=== PATIENT | male | born 1960 | race Caucasian/White ===

== ENCOUNTER 2019-05-22 20:05 | Emergency (ER) | payer MEDICARE, SELFPAY ==
[2019-05-22 20:18] VITALS: PULSE 75; RESP 14; TEMP 36.8; O2SAT 98; BMI 38.5
--- NOTE | 2019-05-22 20:32 | XR_ITS ---
WS: [id number] SHOULDER LEFT TECHNIQUE: 3 views of the left shoulder CLINICAL INFORMATION: pain COMPARISON: None. FINDINGS: Moderate degenerative arthritis AC joint. AICD. Rotator cuff arthropathy with subacromial narrowing. No visualized acute fractures. Slight irregularity air tuberosity likely degenerative. XR/XR shoulder LT min 2V* [id number] IMPRESSION: 1. Moderate degenerative arthritis left shoulder with rotator cuff arthropathy
--- NOTE | 2019-05-22 20:55 | PC.NURSE ---
Patient reports that he fell a year ago and had a lot of pain. Patient states that it went away and they thought he had a bone spur. Patient reports since he has been in a lot of pain since Wednesday. Patient reports that his left hand is swelling as well.
--- NOTE | 2019-05-22 21:20 | W.ED.EXTPRO ---
HPI - Extremity Problem General: Chief complaint: Extremity Injury, Upper Stated complaint: left shoulder pain Time Seen by Provider: 05/22/19 20:47 History of Present Illness: HPI Narrative: Patient is a 59-year-old male who comes to the ED with left shoulder pain. He states that on , May 18 he was lifting some materials to wait around 50 pounds. He says during the lifting movements felt some pain and a pop in his left shoulder. After that he is says he's had pain since. He has problems sleeping at night due to pain. He rates his pain currently and 10. Denies any chest pain, shortness of breath, nausea, vomiting, abdominal pain, hematuria, dysuria, fevers, constipation, diarrhea, stool. Denies any numbness or tingling or weakness to extremities. Review of Systems General: Reports: 10 or more systems reviewed and unremarkable except in HPI and below PFSH ED PFSH: Statuses (acute, chronic, etc) shown below reflect problem list status as previously entered and may not be historically accurate Social History Smoking and tobacco status: former smoker Physical Exam Const: COMMON NORMALS: oriented x3 HENMT: COMMON NORMALS: normocephalic HEAD & SCALP: normocephalic MOUTH: oral and palatal mucosa normal THROAT: posterior oropharynx normal and uvula midline Neck/C-Spine: COMMON NORMALS: supple GENERAL: Yes normal visual inspection Resp: COMMON NORMALS: normal respiratory effort, no retractions, no use of accessory muscles and clear to auscultation bilaterally AUSCULTATION: clear to auscultation bilaterally Cardio: COMMON NORMALS: regular rate, regular rhythm, S1 normal heart sound, S2 normal heart sound, no gallops, no clicks, no murmurs and peripheral pulses 2+ throughout RATE: regular rate RHYTHM: regular rhythm HEART SOUNDS: S1 normal and S2 normal PERIPHERAL PULSES: pulses 2+ throughout GI: COMMON NORMALS: normal to inspection, nondistended, normoactive bowel sounds, soft to palpation, non-tender and no masses PALPATION: Yes soft : COMMON NORMALS: Yes no CVA tenderness BLADDER/KIDNEY EXAM: Yes no CVA tenderness Back/Pelvis: COMMON NORMALS: no CVA tenderness Extremity: LEFT UPPER EXTREMITY: Yes shoulder joint Left shoulder joint: Yes inspection (normal and no swelling), Yes palpation (tenderness at posterior side of ac joint.), Yes ROM (limited due to pain.) and Yes neurovascular exam (intact) Neuro: COMMON NORMALS: oriented x3 and moves all extremities Course Vital Signs: Vital signs: Vital Signs Temperature 98.3 F 05/22/19 22:56 Pulse Rate 76 05/22/19 22:56 Respiratory Rate 16 05/22/19 22:56 Blood Pressure 128/62 05/22/19 22:56 Pulse Oximetry 97 05/22/19 22:56 MDM - Extremity (Nontraumatic) Imaging Data^: Xray Ortho: Attestation: I personally reviewed and interpreted this imaging study as follows: My impression: Left shoulder x-ray?no acute findings or fractures. Pending final radiologist's report. Discharge Plan Discharge Patient Disposition: Home, Self-Care Clinical Impression: Shoulder pain, acute Qualifiers: Laterality: left Qualified Code(s): M25.512 - Pain in left shoulder Condition: Stable Prescriptions: New Zanaflex 2 mg capsule 2 mg PO TID PRN (Reason: muscle spasticity) Qty: 20 RF: 0 No Action Unable to Assess RF: 0 Discharge Orders: Discharge Order (Routine); Ordered 05/22/19 Ordered By: Henri Koroma Referrals: Huy Boles MD [Family Provider] - Discharge Diet: Regular Discharge Activity: Increase activity as tolerated Patient Instructions: Shoulder Sprain (ED) Activity Restrictions/Additional Instructions: Follow-up with primary care doctor on Wednesday and regularly scheduled appointment. Take muscle relaxer at night to help with pain and discomfort while sleeping. Ice shoulder and take Tylenol for pain. Wear sling as needed throughout the day to help with pain. Make sure to not to immobilize shoulder for to long in sling so throughout the day make sure your removing the sling and moving shoulder. Discharge Date/Time: 05/22/19 22:57 Coding Level of Care Code ED Engineering Equipment Operator for Zenaida Gruber
[2019-05-22] MEDS: HYDROcodone-acetaminophen 7.5-325 mg Tablet 1 TAB PO (22:24)
[2019-05-22 22:25] VITALS: BP 128/74; PULSE 73; RESP 16; O2SAT 98
[2019-05-22] MEDS: orphenadrine 30 mg/mL Inj 2 mL 60 MG IM (22:48)
[2019-05-22 22:56] VITALS: BP 128/62; PULSE 76; RESP 16; TEMP 36.8; O2SAT 97
== END 2019-05-22 22:57 | disposition home or self-care (01) ==
PROVIDERS: Emergency Provider Physician Assistant; Family Provider Family Medicine
DX: M25.512 Pain in left shoulder (principal); Z87.891 Personal history of nicotine dependence
CPT/HCPCS: 73030; 96372; 99281; 99283; J2360

== ENCOUNTER 2019-06-07 12:32 | Outpatient (RCR) | payer MEDICARE, SELFPAY | END 2019-06-17 23:59 | disposition home or self-care (01) | LOC: SPT 12:32 | PROVIDERS: Family Provider Family Medicine; PCP Family Medicine; Referring Provider Nurse Practitioner Family; Visit Provider Nurse Practitioner Family | DX: M25.512 Pain in left shoulder (principal) | CPT/HCPCS: 97110; 97161; 97530 ==

== ENCOUNTER 2019-06-18 06:00 | Outpatient (RCR) | payer MEDICARE, SELFPAY | END 2019-07-18 23:59 | disposition home or self-care (01) | LOC: SPT 06:00 | PROVIDERS: Family Provider Family Medicine; PCP Family Medicine; Referring Provider Nurse Practitioner Family; Visit Provider Nurse Practitioner Family | DX: M25.512 Pain in left shoulder (principal) | CPT/HCPCS: 97110; 97140 ==

== ENCOUNTER 2020-01-12 12:57 | Outpatient (CLI) | payer MEDICARE, SELFPAY ==
--- NOTE | 2020-01-12 13:05 | XR_ITS ---
WS: [id number] PELVIS AND LEFT HIP HISTORY: ILIOPSOAS BURSITIS OF LEFT HIP COMPARISON: None available. LEFT hip: No acute fracture or dislocation. No soft tissue or destructive bone lesion. Minimal osteop hytic ridging around the acetabulum. Bilateral enthesopathy from the iliac crest. Very mild narrowing of the SI joints and hip joints. XR/XR hip LT 2-3V wo/w pel* [id number] IMPRESSION: 1. Mild bilateral hip joint arthritis. 2. Iliac crest enthesopathy.
== END 2020-01-12 12:58 | disposition home or self-care (01) ==
PROVIDERS: Family Provider Family Medicine; PCP Family Medicine; Visit Provider Family Medicine
DX: M70.72 Other bursitis of hip, left hip (principal); I10 Essential (primary) hypertension; M16.0 Bilateral primary osteoarthritis of hip; M76.22 Iliac crest spur, left hip
CPT/HCPCS: 73502

== ENCOUNTER 2020-11-12 13:47 | Outpatient (CLI) | payer MEDICARE, SELFPAY ==
--- NOTE | 2020-11-12 14:11 | XR_ITS ---
WS: [id number] XR chest 2V* [id number] REASON FOR EXAM: COUGH FINDINGS: Battery pack over the left chest with trans left subclavian leads to the right atrium and right vent ricular apex. Thoracic aorta is mildly tortuous with no aneurysmal dilatation. The heart is not enlarged. No active pulmonary parenchymal or pleural abnormality is noted. Postoperative right shoulder, degenerative spondylosis in the mid and lower thoracic spine, otherwise the bony thorax is intact. The chest appears relatively unchanged compared to 03/10/2019. XR/XR chest 2V* [id number] IMPRESSION: No acute chest abnormality.
== END 2020-11-12 13:48 | disposition home or self-care (01) ==
PROVIDERS: PCP Family Medicine; Visit Provider Family Medicine
DX: R05 Cough (principal)
CPT/HCPCS: 71046

== ENCOUNTER 2021-01-10 15:00 | Outpatient (CLI) | payer MEDICARE, SELFPAY ==
--- NOTE | 2021-01-10 15:09 | XR_ITS ---
WS: [id number] Lumbar spine, 5 views including obliques, 01/10/2021 Clinical Data: LUMBAR PAIN Comparison: Lumbar spine, 06/28/2017. Findings: No compression fractures or subluxation is seen. No disc space narrowing is seen. The transverse proc esses and SI joints are normal. Osteoarthritis of all the lumbar vertebral bodies is noted. No spondy lolysis or spondylolisthesis is present. There is a minimal levoscoliosis. XR/XR lumbar spine min 4V [id number] Impression: No change in osteoarthritis and minimal levoscoliosis.
== END 2021-01-10 15:01 | disposition home or self-care (01) ==
PROVIDERS: PCP Family Medicine; Visit Provider Family Medicine
DX: M54.5 Low back pain (principal)
CPT/HCPCS: 72110

== ENCOUNTER → 2021-03-26 13:03 | Outpatient (BNVA) | payer MEDICARE, SELFPAY | PROVIDERS: PCP Family Medicine; Visit Provider Family Medicine | DX: Z01.812 Encounter for preprocedural laboratory examination (principal); Z20.822 Contact with and (suspected) exposure to COVID-19 | CPT/HCPCS: 87635 ==

== ENCOUNTER 2021-04-01 10:47 | Outpatient (CLI) | payer MEDICARE, SELFPAY ==
--- NOTE | 2021-04-01 12:51 | PFTS_ITS ---
Date of Study:04/01/21 Date of Dictation: 04/04/21 MECHANICS: Postbronchodilator forced vital capacity (FVC) is reduced . Postbronchodilator forced expiratory volume in one second (FEV1) is reduced . FEV1/FVC is normal. There is no significant response to bronchodilators. FLOW VOLUME LOOP: normal LUNG VOLUMES:not measured DIFFUSING CAPACITY FOR CARBON MONOXIDE: not measured . INTERPRETATION: The spirometry suggestive of restrictive pattern. Lung volumes and gas transfer not measured. Clinical correlation recommended. MTDD
== END 2021-04-01 10:48 | disposition home or self-care (01) ==
LOC: RT 10:51
PROVIDERS: PCP Family Medicine; Visit Provider Family Medicine
DX: R06.02 Shortness of breath (principal)
CPT/HCPCS: 94060; J7611

== ENCOUNTER → 2021-06-14 14:48 | Outpatient (BNVA) | payer MEDICARE, SELFPAY | PROVIDERS: PCP Family Medicine; Visit Provider Nurse Practitioner | DX: Z20.822 Contact with and (suspected) exposure to COVID-19 (principal) | CPT/HCPCS: 87635 ==

== ENCOUNTER 2021-06-26 14:51 | Outpatient (CLI) | payer MEDICARE, SELFPAY ==
--- NOTE | 2021-06-26 14:59 | XR_ITS ---
WS: [id number] Chest 2 views, 06/26/2021 Clinical Data: RESPIRATORY DISORDER Comparison: PA and lateral chest, 11/12/2020. Findings: No nodules, masses or effusions are seen. The heart is normal. The pulmonary vascularity is not increased. No pneumonia or pneumothorax is seen. There is a permanent pacemaker with the generat or overlying the left upper lateral chest. There is an orthopedic screw in the right scapula in the a xillary border. XR/XR chest 2V* [id number] Impression: Cardiac pacemaker.
== END 2021-06-26 14:52 | disposition home or self-care (01) ==
PROVIDERS: PCP Family Medicine; Visit Provider Nurse Practitioner Family
DX: J98.9 Respiratory disorder, unspecified (principal); Z95.0 Presence of cardiac pacemaker
CPT/HCPCS: 71046

== ENCOUNTER 2021-07-06 12:12 | Emergency (ER) | payer MEDICARE, SELFPAY ==
[2021-07-06 12:22] VITALS: BP 131/110; PULSE 68; RESP 18; TEMP 36.4; O2SAT 99; BMI 34.8
--- NOTE | 2021-07-06 12:32 | CTR_ITS ---
PROCEDURE INFORMATION: Exam: CT Cervical Spine Without Contrast Exam date and time: 07/06/2021 12:50 PM Age: 61 years old Clinical indication: Injury or trauma; Fall; Blunt trauma; Additional info: Fall with neck pain TECHNIQUE: Imaging protocol: Computed tomography images of the cervical spine without contrast. Axial, coronal and sagittal reformatted images were created and reviewed. Radiation optimization: All CT scans at this facility use at least one of these dose optimization techniques: automated exposure control; mA and/or kV adjustment per patient size (includes targeted exams where dose is matched to clinical indication); or iterative reconstruction. COMPARISON: CT head wo con* [id number] 07/06/2021 12:47 PM RADIATION DOSE METRICS: Total DLP (mGy-cm): 1012.54 FINDINGS: Bones/joints: Osteopenia. Straightening of the normal cervical lordosis. No CT evidence of acute fracture, dislocation or subluxation. Alignment anatomic. Mild dextroscoliosis. Vertebral body heights maintained. Discs/Spinal canal/Neural foramina: Multilevel degenerative changes, characterized by disc space narrowing, osteophytosis and uncovertebral and facet joint hypertrophy. Multilevel spinal canal and neural foraminal stenosis. Lungs: Mild biapical paraseptal emphysematous change and pleural thickening. Soft tissues: Grossly unremarkable. CT/CT cervical spin wo con* [id number] IMPRESSION: 1. No CT evidence of acute cervical spine traumatic injury. 2. Additional findings, as above.
--- NOTE | 2021-07-06 12:32 | ECG_ITS ---
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 Measurements Intervals [place] Rate: 68 P: 60 AZ: 179 QRS: -45 QRSD: 141 T: 2 QT: 454 QTc: 484 Interpretive Statements ELECTRONIC VENTRICULAR PACEMAKER MARKED ST ELEVATION, CONSIDER LATERAL INJURY [MARKED ST ELEVATION W/O NORMALLY INFLECTED T-WAVE IN I/aVL/V5/V6] MARKED ST DEPRESSION, CONSIDER SUBENDOCARDIAL INJURY [0.2+ mV ST DEPRESSION] ACUTE CO INTERPRETATION BASED ON A DEFAULT AGE OF 40 YEARS Compared to ECG 03/10/2019 13:40:57 ST (T wave) deviation now present Myocardial infarct finding now present Electronically Signed On 07-06-2021 17:47:03 CDT by Ta Issa M.D. [id number]
--- NOTE | 2021-07-06 12:32 | CTR_ITS ---
PROCEDURE INFORMATION: Exam: CT Head Without Contrast Exam date and time: 07/06/2021 12:47 PM Age: 61 years old Clinical indication: Injury or trauma; Fall; Blunt trauma (contusions or hematomas); With loss of consciousness; Additional info: Head trauma TECHNIQUE: Imaging protocol: Computed tomography of the head without contrast. Axial, coronal and sagittal reformatted images were created and reviewed. Radiation optimization: All CT scans at this facility use at least one of these dose optimization techniques: automated exposure control; mA and/or kV adjustment per patient size (includes targeted exams where dose is matched to clinical indication); or iterative reconstruction. COMPARISON: No relevant prior studies available. RADIATION DOSE METRICS: Total DLP (mGy-cm): 1019.55 FINDINGS: Brain: Subtle, patchy areas of hypoattenuation in the periventricular and subcortical white matter, nonspecific but suggestive of mild chronic small vessel ischemic disease. No CT evidence of acute intracranial hemorrhage or acute territorial infarction. No significant mass effect or midline shift. Basal cisterns patent. Cerebral ventricles: Prominence of the cortical sulci, cisterns and ventricular system, consistent with cerebral and cerebellar volume loss. Paranasal sinuses: Mild ethmoid mucosal thickening. No fluid levels. Mastoid air cells: Minimal opacification of the right greater than left mastoid air cells. Vasculature: Calcific atherosclerotic disease in the cavernous internal carotid arteries. Bones/joints: No acute osseous abnormality. Soft tissues: Grossly unremarkable. CT/CT head wo con* [id number]: 1[address] No CT evidence of acute intracranial pathology. 2. Additional findings, as above.
--- NOTE | 2021-07-06 12:33 | W.ED.FALL ---
HPI - Fall General: Chief Complaint: Fall Stated Complaint: fall hit head Time Seen by Provider: 07/06/21 12:22 Source: patient and family Mode of arrival: ambulatory Limitations: no limitations History of Present Illness: This patient presents to the emergency department the insistence of his spouse. He states he has been having occipital headache and kind of feeling foggy and out of sorts since Wednesday. He apparently has had recent pneumonia and had a coughing paroxysm and on Wednesday and was kind of stretching out and bending upwards during this episode of coughing and had a syncopal episode causing him to fall back and striking his head and neck against a coffee table. He states that he had no prodrome to this episode other than his coughing paroxysm. He states he has had previous episodes of cough syncope in the past. He states that since his fall on Wednesday he has had an occipital headache and having episodes where he just feels out of sorts and not his usual mental state. He denies any weakness or numbness, difficulty with speech, difficulty with other neurologic symptoms. He takes 81 mg of aspirin but no other blood thinners. He states he is been doing some of his usual work but some days has not felt he has the energy or the drive to do his usual activities of daily living. He states he has been eating and drinking okay with no vomiting or diarrhea. States his pneumonia is significantly improved over the past several days. He has been on antibiotics for that condition. Denies any fevers or chills or other constitutional complaints at this time. 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 He states his defibrillator pacemaker has never defibrillated him. MD complaint: fall Fall from: standing Place fall occurred: home Location of injury: head, neck and buttocks Associated symptoms-after fall: Reports headache(s) and neck pain; Denies abdominal pain, chest pain, difficulty walking, lightheadedness or vertigo Review of Systems Const: Denies: fever(s), chills or body aches Eyes: Denies: change in vision or blurry vision ENMT: Denies: throat pain, change in hearing, disequilibrium or sinus pain Card: Reports: syncope; Denies: chest pain, palpitations, irregular heart rhythm, lightheadedness, pre-syncope or dyspnea on exertion Resp: Reports: non-productive cough; Denies: wheezing or stridor GI: Denies: abdominal pain, nausea or vomiting : Denies: flank pain, difficulty urinating or dysuria Musc: Reports: neck pain and back pain; Denies: extremity pain, extremity swelling, joint pain or joint swelling Skin/Breast: Denies: rash Neuro: Reports: headache(s); Denies: numbness in extremities, weakness in extremities, sensory changes, lack of coordination, difficulty walking, dizziness, vertigo, behavioral changes, Slurred speech present or seizure-like activity Endo: Denies: polyuria or polydipsia Moshe/Lymph: Denies: easy bruising or easy bleeding PFSH ED PFSH: Social History Smoking and tobacco status: former smoker Physical Exam Narrative: EXAM NARRATIVE: Patient appears comfortable. He answers questions in a goal-directed fashion. Const: COMMON NORMALS: no acute distress and patient oriented x3 NUTRITIONAL APPEARANCE: overweight HENMT: COMMON NORMALS: normocephalic (No laceration. Mild tenderness over the inferior occiput.), external ears normal, Normal nasal mucous membranes and turbinates present, moist oral mucous membranes and oropharynx normal HEAD & SCALP: normocephalic (No laceration. Mild tenderness over the inferior occiput.); no abrasion, no Walker's sign, no laceration and no palpable skull fracture FACE & SINUS: normal facial exam NOSE: Normal nasal mucous membranes and turbinates present EXTERNAL EAR: Yes external ears normal Eye: COMMON NORMALS: Equal, round and reactive pupils present PUPIL: Yes Equal, round and reactive pupils present Neck/C-Spine: COMMON NORMALS: supple, no JVD and No carotid bruits OTHER: Mild tenderness in the paravertebral region of the C-spine. No step-offs. Chest: COMMONS NORMALS: normal inspection of the chest and normal palpation of entire chest wall Resp: COMMON NORMALS: normal respiratory effort, No retractions, No use of accessory muscles and clear to auscultation bilaterally AUSCULTATION: clear to auscultation bilaterally Cardio: COMMON NORMALS: no JVD, regular rate, No murmurs present (Cardio) and Peripheral pulses 2+ throughout RATE: regular rate PERIPHERAL PULSES: Peripheral pulses 2+ throughout GI: COMMON NORMALS: Normal to inspection, nondistended, normoactive bowel sounds present and Soft to palpation PALPATION: Yes Soft to palpation : COMMON NORMALS: Yes no CVA tenderness BLADDER/KIDNEY EXAM: Yes no CVA tenderness Back/Pelvis: COMMON NORMALS: no CVA tenderness, thoracic and lumbar spine normal to inspection, thoraco-lumbar ROM normal and straight leg raise negative bilaterally LUMBAR SPINE/LOWER BACK: Yes other soft tissue findings (No ecchymosis. Mild soft tissue tenderness in the paralumbar region.) Extremity: COMMON NORMALS: normal to inspection, full ROM, capillary refill normal, no calf tenderness and no pedal edema Neuro: COMMON NORMALS: patient oriented x3, moves all extremities, no focal motor deficits, no sensory deficits noted and gait normal CRANIAL NERVES: Yes CN normal except as noted SPEECH: speech normal Course Reevaluation(s): Reevaluation #1: I went back to discussed current findings with the patient also reevaluate him. I informed him of his CT of his head and neck were reassuring and discussed about concussion and expected course. He then related to me that since he has been sitting in a somewhat semirecumbent position on the examination bed he is noted increasing discomfort in his right lower back. He states it causes some numbness around his soft tissues in that area. He was previously examined and had some minimal soft tissue tenderness but he states that he has not been used to being in this position it seems to be more uncomfortable. He has the same amount of soft tissue tenderness over the region and the location of the posterior superior iliac spine. He also has some discomfort with straight leg raising on the right. There is no left-sided tenderness and a negative straight leg raising on the left. He has no midline tenderness or step-off. Given his current findings we will go ahead and get some plain films of his pelvis and lumbar spine to ensure there is no occult fracture. Time: 13:29 Vital Signs: Vital signs: Vital Signs Temperature 97.6 F 07/06/21 12:22 Pulse Rate 62 07/06/21 13:06 Respiratory Rate 16 07/06/21 12:37 Blood Pressure 131/110 07/06/21 13:06 Pulse Oximetry 96 07/06/21 13:06 MDM - Fall Medical Decision Making Patient presents to our emergency department with symptoms suggestive of a cough syncope with a subsequent fall. Imaging of his head and neck were reassuring as well as imaging of his pelvis and lumbar spine region. Appears to have post concussive symptoms as well as soft tissue contusion from his fall without any evidence of other serious injury. He has monitor and resting EKG both were consistent with a paced rhythm without any evidence of arrhythmias. He is stable at this time to be discharged. The expected course of recovery from concussion was reviewed with both he and his accompanying spouse. He was cautioned on operating heavy machinery, working at heights etc. until he feels 100% back to normal. We also discussed return precautions in detail. All discussion was acknowledged. Stable for discharge. Medical Records I reviewed the patient's medical records. Lab Data I reviewed the patient's lab results. Radiology Impressions Cervical Spine CT 07/06/21 12:[address]: [address] evidence of acute cervical spine traumatic injury. 2. Additional findings, as above. Head CT 07/06/21 12:32 IMPRESSION: 1. No CT evidence of acute intracranial pathology. 2. Additional findings, as above. Lumbar Spine X-Ray 07/06/21 13:27 IMPRESSION: No acute radiographic findings. Pelvis X-Ray 07/06/21 13:27 IMPRESSION: No acute radiographic findings. EKG Data EKG 1: I personally reviewed and interpreted this EKG as follows: EKG interpretation time: 12:30 Interpretation: Patient has a paced rhythm of 68 bpm. He has bundle branch block pattern as one would expect from a paced rhythm. Computer expresses a possible acute NJ pattern however there is no discordance or concordance across the precordial leads consistent with scarbossa's criteria for acute NJ. Discharge Plan Discharge Patient Disposition: Home Clinical Impression: Cough syncope, Concussion, Soft tissue injury of back Condition: Stable Prescriptions: No Action Unable to Assess 0RF Zanaflex 2 mg capsule 2 mg PO TID PRN (Reason: muscle spasticity) Qty: 20 0RF Discharge Orders: Discharge ED (Routine); Ordered 07/06/21 Ordered By: Amari Wagner Referrals: Huy Boles MD [Primary Care Provider] - Discharge Diet: Usual diet Discharge Activity: Limit activity as instructed Patient Instructions: Concussion/Head Injury - Adult, Opioid Safety Activity Restrictions/Additional Instructions: As we discussed postconcussive symptom symptoms may wax and wane and persist for an indeterminate period of time but many times of upwards of 2 weeks or more after the injury. Avoid operating heavy machinery, working at heights etc. until you feel back to 100% of your normal self. You may use ice to your low back to help with any discomfort. Should you develop persistent worsening pain loss of bowel or bladder control or weakness numbness that persists return to the emergency department for reevaluation. Coding Level of Care Code ED Professor Of Sport Management for Zenaida Fwd Exam Comprehensive
[2021-07-06 12:37] VITALS: BP 131/110; PULSE 68; RESP 16; O2SAT 96
[2021-07-06 13:06] VITALS: BP 131/110; PULSE 62; O2SAT 96
--- NOTE | 2021-07-06 13:27 | XRR_ITS ---
PROCEDURE INFORMATION: Exam: XR Pelvis Exam date and time: 07/06/2021 1:34 PM Age: 61 years old Clinical indication: Pelvic pain; Additional info: Now with pain in right si region-fall injury TECHNIQUE: Imaging protocol: XR pelvis. Views: 1 or 2 view. COMPARISON: CR XR hip LT 2-3V wo/w pel* [id number] 01/12/2020 1:17 PM FINDINGS: Bones/joints: No radiographic evidence of acute fracture or dislocation. Alignment anatomic. Mild bilateral hip joint osteoarthrosis. Degenerative changes of the lower lumbar spine, sacroiliac joints and pubic symphysis. Soft tissues: Grossly unremarkable. XR/XR pelvis 1-2V* [id number] IMPRESSION: No acute radiographic findings.
--- NOTE | 2021-07-06 13:27 | XRR_ITS ---
PROCEDURE INFORMATION: Exam: XR Lumbosacral Spine Exam date and time: 07/06/2021 1:34 PM Age: 61 years old Clinical indication: Low back pain; Additional info: Fall but now C/O increased pain in right si joint area TECHNIQUE: Imaging protocol: XR of the lumbosacral spine. Views: 2 or 3 views. COMPARISON: CR XR lumbar spine min 4V [id number] 01/10/2021 3:20 PM FINDINGS: Bones/joints: Moderate multilevel spondylosis. No acute fracture. Normal alignment. Soft tissues: Grossly unremarkable. XR/XR lumbar spine 2-3V* [id number] IMPRESSION: No acute radiographic findings.
[2021-07-06 14:38] VITALS: BP 148/82; PULSE 66; RESP 16; O2SAT 98
== END 2021-07-06 14:39 | disposition home or self-care (01) ==
PROVIDERS: Emergency Provider Emergency Medicine; PCP Family Medicine
DX: S06.0X9A Concussion with loss of consciousness of unspecified duration, initial encounter (principal); R55 Syncope and collapse; R05.9 Cough, unspecified; S30.0XXA Contusion of lower back and pelvis, initial encounter; Z87.891 Personal history of nicotine dependence; W19.XXXA Unspecified fall, initial encounter
CPT/HCPCS: 70450; 72100; 72125; 72170; 93005; 99283

== ENCOUNTER 2021-08-19 08:39 | Outpatient (CLI) | payer MEDICARE, SELFPAY ==
--- NOTE | 2021-08-19 08:53 | CT_ITS ---
WS: [id number] CT CHEST TECHNIQUE: Contrast enhanced CT of the chest with coronal and sagittal reformatted images. CLINICAL INFORMATION: WHEEZING COMPARISON: CT chest 08/23/17 DLP: 827.[address] scans at [facility] use at least one of these dose optimization techniques: automated e xposure control; mA and/or kV adjustment per patient size (includes targeted exams where dose is matc hed to clinical indication); or iterative reconstruction. FINDINGS: Mild chronic emphysematous changes. Slight bibasilar atelectasis. Slight hazy groundglass infiltrates in the RIGHT lower lobe posteriorly. No focal pneumonia or pleural fluid. Numerous noncalcified pulmonary nodules within both lungs the largest measuring 7 mm. Largest nodules are stable since 2018. A few new and increasing nodules although subcentimeter in size. Recommend 6- 12 month follow-up. Normal thyroid gland. Normal caliber thoracic aorta. Aortic calcification. Proximal main pulmonary ar teries are normal. No mediastinal or hilar lymphadenopathy. No axillary lymphadenopathy. Adrenal glands are normal. Mild diffuse fatty infiltration the liver. Normal GE junction. Hypertrophic changes thoracic spine. Thora cic curve convex RIGHT. CT/CT chest w con* [id number] IMPRESSION: 1. Numerous noncalcified bilateral pulmonary nodules largest measuring 7 mm. M ost of these are stable since 2018. A few are new or increased in size. Recomme nd 6-12 month follow-up. 2. Bibasilar atelectasis with slight hazy groundglass infiltrates in the RIGHT lower lobe posteriorly. This is likely infectious or inflammatory. Recommend c orrelation for pneumonitis. 3. No focal pneumonia or pleural fluid. 4. No mediastinal or hilar lymphadenopathy. 5. No other significant changes compared to previous
[2021-08-19] MEDS: iohexol 350 mg/mL 100 mL Btl IV (09:21)
== END 2021-08-19 08:40 | disposition home or self-care (01) ==
LOC: RAD 08:43
PROVIDERS: PCP Family Medicine; Visit Provider Family Medicine
DX: R06.2 Wheezing (principal); R91.8 Other nonspecific abnormal finding of lung field; J98.11 Atelectasis
CPT/HCPCS: 71260

== ENCOUNTER → 2021-11-03 14:31 | Outpatient (BNVA) | payer MEDICARE, SELFPAY | PROVIDERS: PCP Family Medicine; Visit Provider Internal Medicine Critical Care Medicine | DX: J42 Unspecified chronic bronchitis (principal); F17.200 Nicotine dependence, unspecified, uncomplicated; T17.908A Unspecified foreign body in respiratory tract, part unspecified causing other injury, initial encounter; R91.1 Solitary pulmonary nodule; Y99.9 Unspecified external cause status | CPT/HCPCS: 99204 ==

== ENCOUNTER → 2021-11-11 10:56 | Outpatient (BNVA) | payer MEDICARE, SELFPAY | PROVIDERS: PCP Family Medicine; Visit Provider Family Medicine | DX: I50.9 Heart failure, unspecified (principal); C95.90 Leukemia, unspecified not having achieved remission; G47.33 Obstructive sleep apnea (adult) (pediatric); E78.5 Hyperlipidemia, unspecified; F17.219 Nicotine dependence, cigarettes, with unspecified nicotine-induced disorders; Z76.89 Persons encountering health services in other specified circumstances; R91.1 Solitary pulmonary nodule; T17.908A Unspecified foreign body in respiratory tract, part unspecified causing other injury, initial encounter; J42 Unspecified chronic bronchitis; I11.0 Hypertensive heart disease with heart failure | CPT/HCPCS: 80053; 80061; 83036; 83735; 84153; 84439; 84443; 85025 ==

== ENCOUNTER → 2022-02-18 08:32 | Outpatient (BNVA) | payer MEDICARE, SELFPAY | PROVIDERS: PCP Family Medicine; Visit Provider Podiatrist Foot & Ankle Surgery | DX: I73.9 Peripheral vascular disease, unspecified (principal); L60.0 Ingrowing nail; E11.9 Type 2 diabetes mellitus without complications; R60.9 Edema, unspecified | CPT/HCPCS: 11721; 99204 ==

== ENCOUNTER 2022-02-26 16:54 | Outpatient (CLI) | payer MEDICARE, SELFPAY ==
--- NOTE | 2022-02-26 17:00 | CT_ITS ---
WS: [id number] CT CHEST WITHOUT INTRAVENOUS CONTRAST HISTORY: 6 month f/u TECHNIQUE: Contiguous 5 mm axial imaging performed on the thorax. Coronal and sagittal reformats are submitted. All CT scans at [facility] use at least one of these dose optimization techniques: automated exposure control; mA and/or kV adjustment per patient size (includes targeted exams where dose is matched to clinical indication); or iterative reconstruction. CONTRAST: None DLP: 824.42 mGy.cm COMPARISON: 08/19/2021 and 08/23/2017 Lungs and central airway: Lung volumes are decreased. There is pleural and subpleural interstitial th ickening which is chronic. Paraseptal emphysematous changes. There are numerous bilateral pulmonary n odules. These nodules are less than a centimeter. Several nodules are along the RIGHT minor fissure w hich are typically benign intrapulmonary lymph nodes. Nodules are all less than a centimeter and not increased in size or number since 08/19/2021. Pleura: Normal. No pleural effusion. Heart and pericardium: Mild enlargement of the heart. Very small mild anterior pericardial thickening . Mediastinum and shayne: There are a few small benign lymph nodes. Several of these lymph nodes at the R IGHT hilum have increased very slightly in size but still less the largest only measures 1 cm. Vessels: Mild atherosclerosis aorta. Normal size pulmonary artery. Chest wall and lower neck: LEFT subclavian pacer. Upper abdomen: Small hiatal hernia. Mild hepatic steatosis. Osseous structures: Degenerative thoracolumbar scoliosis. CT/CT chest wo con [id number] IMPRESSION: 1. No significant increase in size or number of the pulmonary nodules as descr ibed on 08/19/2021. Recommend [address] follow-up for continued stability. 2. Paraseptal emphysematous disease with interstitial fibrosis. 3. No significant adenopathy.
== END 2022-02-26 16:55 | disposition home or self-care (01) ==
PROVIDERS: PCP Family Medicine; Visit Provider Internal Medicine Critical Care Medicine
DX: R91.1 Solitary pulmonary nodule (principal); J43.9 Emphysema, unspecified; J84.10 Pulmonary fibrosis, unspecified
CPT/HCPCS: 71250

== ENCOUNTER → 2022-04-22 10:02 | Outpatient (BNVA) | payer MEDICARE, SELFPAY | PROVIDERS: PCP Family Medicine; Visit Provider Podiatrist Foot & Ankle Surgery | DX: I73.9 Peripheral vascular disease, unspecified (principal); E11.9 Type 2 diabetes mellitus without complications; R60.9 Edema, unspecified | CPT/HCPCS: 11721 ==

== ENCOUNTER 2022-05-21 12:40 | Outpatient (RCR) | payer MEDICARE, SELFPAY | END 2022-06-16 23:59 | disposition home or self-care (01) | LOC: SPT 12:40 | PROVIDERS: PCP Family Medicine; Visit Provider Family Medicine | DX: M54.50 Low back pain, unspecified (principal); M53.3 Sacrococcygeal disorders, not elsewhere classified | CPT/HCPCS: 97110; 97150; 97161 ==

== ENCOUNTER → 2022-05-26 10:16 | Outpatient (BNVA) | payer MEDICARE, SELFPAY | PROVIDERS: PCP Family Medicine; Referring Provider Family Medicine; Visit Provider Anesthesiology Pain Medicine | DX: M54.50 Low back pain, unspecified (principal); M79.18 Myalgia, other site; M79.604 Pain in right leg; M79.605 Pain in left leg | CPT/HCPCS: 99204 ==

== ENCOUNTER → 2022-06-08 10:16 | Outpatient (BNVA) | payer MEDICARE, SELFPAY | PROVIDERS: PCP Family Medicine; Visit Provider Internal Medicine Pulmonary Disease | DX: J41.1 Mucopurulent chronic bronchitis (principal); F17.210 Nicotine dependence, cigarettes, uncomplicated; J18.9 Pneumonia, unspecified organism; T17.908D Unspecified foreign body in respiratory tract, part unspecified causing other injury, subsequent encounter; R91.8 Other nonspecific abnormal finding of lung field; X58.XXXD Exposure to other specified factors, subsequent encounter | CPT/HCPCS: 99214 ==

== ENCOUNTER → 2022-06-10 10:02 | Outpatient (BNVA) | payer MEDICARE, SELFPAY | PROVIDERS: PCP Family Medicine; Visit Provider Anesthesiology Pain Medicine | DX: M79.18 Myalgia, other site (principal); M54.50 Low back pain, unspecified | CPT/HCPCS: 20553; 99212 ==

== ENCOUNTER 2022-06-12 10:18 | Outpatient (CLI) | payer MEDICARE, SELFPAY ==
--- NOTE | 2022-06-12 11:00 | USCV_ITS ---
Buddy Waterman Age: 62 Gender: M : 1960 Exam Date: 06/12/2022 10:43 Ordering Phys: Chevy Hutson DO Technologist: BERT Exam Location: [facility] [place] Indication: CHRONIC HEART FAILURE BP: 156 / 58 HR: 59 Rhythm: Sinus Technical Quality: Adequate MEASUREMENTS (Male / Female) Normal Values 2D ECHO LVOT Diameter 2.0 cm LV Ejection Fraction MOD 2C 48.5 % LV Ejection Fraction 2C AL 50.5 % LA Diameter 3.5 cm LA Width 3.3 cm LA Height 5.9 cm RA Width 4.0 cm RA Height 5.0 cm Aorta at Sinotubular Diameter 2.5 cm IVC Diameter 1.3 cm M-MODE Aortic Annulus Diameter 3.0 cm LA Ao Ratio MM 1.2 MV E Point Septal Separation 0.8 cm DOPPLER AV Peak Velocity 150.0 cm/s LVOT Peak Velocity 95.0 cm/s AV Area Cont Eq vti 2.5 cm squared AV Area Cont Eq pk 2.0 cm squared MV Peak Velocity 103.0 cm/s MV Area PHT 2.8 cm squared Mitral E to A Ratio 0.9 MV E' Velocity 43.0 cm/s Mitral E to MV E' Ratio 11.3 Mitral E to LV E' Lateral Ratio 9.5 Mitral E to LV E' Septal Ratio 14.1 TR Peak Velocity 190.6 cm/s TR Peak Gradient 14.5 mmHg TR Mean Velocity 160.4 cm/s TR Mean Gradient 10.6 mmHg TR Velocity Time Integral 62.8 cm TV Peak E Velocity 57.0 cm/s Right Atrial Pressure 3.0 mmHg Pulmonary Artery Systolic Pressu 17.5 mmHg PV Peak Velocity 88.0 cm/s RV Acceleration Time 0.1 s RV Ejection Time 0.3 s RV AcT/ET 0.3 FINDINGS Left Ventricle Left ventricle is normal in size. LV systolic function is moderately reduced with EF of 35-40%. Moderate global hypokinesis seen. Grade 1 diastolic dysfunction Right Ventricle Normal in size and function Right Atrium Normal in size. Pacemaker lead is seen Left Atrium Normal in size Mitral Valve Structurally normal mitral valve. Mild mitral regurgitation. Aortic Valve Grossly normal. No significant stenosis or regurgitation Tricuspid Valve Mild tricuspid regurgitation. Pulmonic Valve Not well visualized Pericardium Normal Aorta Normal in size IVC Appears to be normal CONCLUSIONS LV systolic function is moderately reduced with EF of 35 to 40%. Grade 1 diastolic dysfunction Pacemaker lead is seen in the right atrium Mild mitral regurgitation Mild tricuspid regurgitation Compared to prior echocardiogram from 2019, LV systolic function has decreased slightly. Guzman Rosario MD (Electronically Signed) Final Date: 20 June 2022 19:41 S
== END 2022-06-12 10:19 | disposition home or self-care (01) ==
PROVIDERS: PCP Family Medicine; Visit Provider Family Medicine
DX: I42.9 Cardiomyopathy, unspecified (principal); I50.22 Chronic systolic (congestive) heart failure; Z95.0 Presence of cardiac pacemaker; I08.1 Rheumatic disorders of both mitral and tricuspid valves
CPT/HCPCS: 93306

== ENCOUNTER 2022-06-17 06:00 | Outpatient (RCR) | payer MEDICARE, SELFPAY | END 2022-07-17 23:59 | disposition home or self-care (01) | LOC: SPT 06:00 | PROVIDERS: PCP Family Medicine; Visit Provider Family Medicine | DX: M54.50 Low back pain, unspecified (principal); M53.3 Sacrococcygeal disorders, not elsewhere classified | CPT/HCPCS: 97110 ==

== ENCOUNTER → 2022-07-06 08:49 | Outpatient (BNVA) | payer MEDICARE, SELFPAY | PROVIDERS: PCP Family Medicine; Visit Provider Podiatrist Foot & Ankle Surgery | DX: I73.9 Peripheral vascular disease, unspecified (principal); B35.1 Tinea unguium; R60.9 Edema, unspecified; E11.9 Type 2 diabetes mellitus without complications | CPT/HCPCS: 11721 ==

== ENCOUNTER → 2022-07-08 10:01 | Outpatient (BNVA) | payer MEDICARE, SELFPAY | PROVIDERS: PCP Family Medicine; Visit Provider Anesthesiology Pain Medicine | DX: M54.50 Low back pain, unspecified (principal); M79.18 Myalgia, other site; M79.604 Pain in right leg; M79.605 Pain in left leg | CPT/HCPCS: 99212 ==

== ENCOUNTER → 2022-07-20 11:57 | Outpatient (BNVA) | payer MEDICARE, SELFPAY | PROVIDERS: PCP Family Medicine; Visit Provider Family Medicine | DX: E78.2 Mixed hyperlipidemia (principal); I25.5 Ischemic cardiomyopathy; N40.0 Benign prostatic hyperplasia without lower urinary tract symptoms; Z12.5 Encounter for screening for malignant neoplasm of prostate; I50.22 Chronic systolic (congestive) heart failure; E11.9 Type 2 diabetes mellitus without complications; I42.9 Cardiomyopathy, unspecified; I11.0 Hypertensive heart disease with heart failure | CPT/HCPCS: 80053; 80061; 83036; 84443; 85025; G0103 ==

== ENCOUNTER → 2022-09-02 11:57 | Outpatient (BNVA) | payer MEDICARE, SELFPAY | PROVIDERS: PCP Family Medicine; Visit Provider Family Medicine | DX: E87.5 Hyperkalemia (principal) | CPT/HCPCS: 84132 ==

== ENCOUNTER → 2022-09-28 08:46 | Outpatient (BNVA) | payer MEDICARE, SELFPAY | PROVIDERS: PCP Family Medicine; Visit Provider Podiatrist Foot & Ankle Surgery | DX: E11.9 Type 2 diabetes mellitus without complications (principal); I73.9 Peripheral vascular disease, unspecified; B35.1 Tinea unguium; L84 Corns and callosities | CPT/HCPCS: 11055; 11721 ==

== ENCOUNTER → 2022-12-02 11:56 | Outpatient (BNVA) | payer MEDICARE, SELFPAY | PROVIDERS: PCP Family Medicine; Visit Provider Family Medicine | DX: E11.9 Type 2 diabetes mellitus without complications (principal); E83.52 Hypercalcemia; E87.6 Hypokalemia; I42.9 Cardiomyopathy, unspecified; I50.9 Heart failure, unspecified; R53.83 Other fatigue; T50.2X5A Adverse effect of carbonic-anhydrase inhibitors, benzothiadiazides and other diuretics, initial encounter; E83.42 Hypomagnesemia | CPT/HCPCS: 80053; 82306; 82607; 82746; 83036; 83735; 84443; 85025 ==

== ENCOUNTER → 2022-12-07 09:11 | Outpatient (BNVA) | payer MEDICARE, SELFPAY | PROVIDERS: PCP Family Medicine; Visit Provider Podiatrist Foot & Ankle Surgery | DX: B35.1 Tinea unguium (principal); E11.9 Type 2 diabetes mellitus without complications; I73.9 Peripheral vascular disease, unspecified; L84 Corns and callosities | CPT/HCPCS: 11721 ==

== ENCOUNTER → 2023-02-15 10:38 | Outpatient (BNVA) | payer MEDICARE, SELFPAY | PROVIDERS: PCP Family Medicine; Visit Provider Podiatrist Foot & Ankle Surgery | DX: B35.1 Tinea unguium (principal); I73.9 Peripheral vascular disease, unspecified; L84 Corns and callosities; E11.9 Type 2 diabetes mellitus without complications | CPT/HCPCS: 11055; 11721 ==

== ENCOUNTER → 2023-03-08 10:15 | Outpatient (BNVA) | payer MEDICARE, SELFPAY | PROVIDERS: PCP Family Medicine; Visit Provider Internal Medicine Pulmonary Disease | DX: J41.1 Mucopurulent chronic bronchitis (principal); T17.908D Unspecified foreign body in respiratory tract, part unspecified causing other injury, subsequent encounter; R91.1 Solitary pulmonary nodule; X58.XXXD Exposure to other specified factors, subsequent encounter; Z87.891 Personal history of nicotine dependence | CPT/HCPCS: 99214 ==

== ENCOUNTER 2023-03-23 15:06 | Outpatient (CLI) | payer MEDICARE, SELFPAY ==
--- NOTE | 2023-03-23 15:30 | CTR_ITS ---
PROCEDURE INFORMATION: Exam: CT Chest Without Contrast; Diagnostic Exam date and time: 03/23/2023 3:20 PM Age: 63 years old Clinical indication: Abnormal findings; Abnormal radiologic exam of lung or chest; Prior surgery; Surgery date: 6+ months; Surgery type: RT shoulder, pacemaker/defibulator; Patient HX: 1. No significant increase in size or number of the pulmonary nodules as described on 08/19/2021. Recommend [address] follow-up for continued stability. 02/27/22 vy; Additional info: To follow up on lung nodules, TECHNIQUE: Imaging protocol: Diagnostic computed tomography of the chest without contrast. Radiation optimization: All CT scans at this facility use at least one of these dose optimization techniques: automated exposure control; mA and/or kV adjustment per patient size (includes targeted exams where dose is matched to clinical indication); or iterative reconstruction. REPORTING DATA: Count of CT and Cardiac NM exams in prior 12 months: This patient has received 0 known CTs and 0 known cardiac nuclear medicine studies in the 12 months prior to the current study. COMPARISON: CT chest wo con [id number] 02/26/2022 5:07 PM RADIATION DOSE METRICS: Total DLP (mGy-cm): 592.47 FINDINGS: Tubes, catheters and devices: Pacemaker. Lungs: The small right lower lobe and right middle lobe pulmonary nodules are stable. As before the largest is approximately 6 mm in diameter. Chronic ground-glass fibrosis and reticulations peripherally. Pleural spaces: Unremarkable. No pneumothorax. No pleural effusion. Heart: Unremarkable. No cardiomegaly. No pericardial effusion. Coronary arteries: Coronary artery calcifications. Lymph nodes: No central adenopathy. Vasculature: Unremarkable. No aortic aneurysm. Bones/joints: Unremarkable. No acute fracture. Soft tissues: Unremarkable. CT/CT chest wo con [id number] IMPRESSION: Stable pulmonary nodules.
== END 2023-03-23 15:07 | disposition home or self-care (01) ==
LOC: RAD 15:07
PROVIDERS: PCP Family Medicine; Visit Provider Internal Medicine Pulmonary Disease
DX: R91.1 Solitary pulmonary nodule (principal)
CPT/HCPCS: 71250

== ENCOUNTER → 2023-05-18 10:52 | Outpatient (BNVA) | payer MEDICARE, SELFPAY | PROVIDERS: PCP Family Medicine; Visit Provider Podiatrist Foot & Ankle Surgery | DX: B35.1 Tinea unguium (principal); I73.9 Peripheral vascular disease, unspecified | CPT/HCPCS: 11721 ==

== ENCOUNTER → 2023-07-07 11:19 | Outpatient (BNVA) | payer MEDICARE, SELFPAY | PROVIDERS: PCP Family Medicine; Visit Provider Family Medicine | DX: E11.9 Type 2 diabetes mellitus without complications (principal) | CPT/HCPCS: 80053; 80061; 83036; 85025 ==

== ENCOUNTER → 2023-07-27 13:12 | Outpatient (BNVA) | payer MEDICARE, SELFPAY | PROVIDERS: PCP Family Medicine; Visit Provider Podiatrist Foot & Ankle Surgery | DX: B35.1 Tinea unguium (principal); I73.9 Peripheral vascular disease, unspecified | CPT/HCPCS: 11721 ==

== ENCOUNTER 2023-09-01 15:38 | Inpatient (IN) | payer MEDICARE, SELFPAY ==
[2023-09-01] VITALS (7 sets, daily range): BP systolic 136–158; BP diastolic 70–96; PULSE 68–109; RESP 15–20; TEMP 36.6–36.7; O2SAT 92–97
--- NOTE | 2023-09-01 17:15 | W.ED.ABDPA2 ---
Documented by User: Yannick Villanueva DO 09/02/23 07:43 HPI - Abdominal Pain General: Chief Complaint: Abdominal Pain Stated Complaint: right side abd pain Time Seen by Provider: 09/01/23 17:08 Source: patient Mode of arrival: ambulatory History of Present Illness: MD elicited complaint: abdominal pain Associated Symptoms: Denies chills, dysuria and fever(s) Review of Systems Const: Denies: fever(s) or chills Card: Denies: chest pain Resp: Denies: dyspnea GI: Denies: abdominal pain : Denies: dysuria, urinary frequency or urinary urgency Musc: Denies: neck pain or back pain Skin/Breast: Denies: rash PFSH ED PFSH: Medical History Cardiomyopathy Leukemia Osteoarthritis GERD (gastroesophageal reflux disease) COPD (chronic obstructive pulmonary disease) BPH (benign prostatic hyperplasia) Cardiomegaly Hyperlipidemia Hypertension Congestive heart failure Knee pain Steatosis, liver Lumbar spondylitis Obstructive sleep apnea Sacroiliac pain Pacemaker Social History Smoking and tobacco/nicotine status: former use of tobacco/nicotine Alcohol intake: never Substance/Drug Use: never Physical Exam Const: COMMON NORMALS: no acute distress GENERAL APPEARANCE: cooperative and comfortable ORIENTATION/CONSCIOUSNESS: Yes awake, Yes oriented to person, Yes oriented to place and Yes oriented to time HENMT: COMMON NORMALS: normocephalic, atraumatic and hearing grossly normal bilaterally HEAD & SCALP: normocephalic and atraumatic Resp: COMMON NORMALS: normal respiratory effort, No retractions, No use of accessory muscles and clear to auscultation bilaterally AUSCULTATION: clear to auscultation bilaterally Cardio: COMMON NORMALS: regular rate, regular rhythm and No murmurs present (Cardio) RATE: regular rate RHYTHM: regular rhythm GI: COMMON NORMALS: Soft to palpation and No hepatosplenomegaly present AUSCULTATION: Yes normoactive bowel sounds PALPATION: Yes Soft to palpation, No Tenderness to palpation present (GI), No Guarding due to palpation present (GI) and Yes No hepatosplenomegaly present Extremity: COMMON NORMALS: normal to inspection, capillary refill normal, no clubbing, cyanosis or edema, no calf tenderness and no pedal edema Neuro: SENSORIUM/ORIENTATION: Yes oriented to person, Yes oriented to place and Yes oriented to time Skin: COMMON NORMALS: no rashes or lesions noted GENERAL SKIN EXAM: no rashes or lesions noted Course Vital Signs: Vital signs: Vital Signs Temperature 98.8 F 09/02/23 07:07 Pulse Rate 71 09/02/23 07:07 Respiratory Rate 17 09/02/23 07:07 Blood Pressure 133/81 09/02/23 07:07 Pulse Oximetry 93 09/02/23 07:07 Oxygen Delivery Me thod Room Air 09/02/23 07:07 MDM - Abdominal Pain Medical Decision Making Patient presents with right lower quadrant abdominal pain his exam is consistent with concerning for appendicitis he does have leukocytosis. CT is pending. Care signed out to Dr. Garcia at change of shift. See final notes for diagnosis and disposition. Patient presents for abdominal pain CT does show appendicitis did start him on Zosyn and spoke to surgeon Dr. Prakash and will admit to him at this time. Lab Data 09/01/23 17:15 09/01/23 17:15 Labs/Radiology: Radiology Impressions Chest X-Ray 09/01/23 17:23 IMPRESSION: No acute findings. Abdomen/Pelvis CT 09/01/23 17:24 IMPRESSION: 1. Acute appendicitis. No sign of perforation. 2. Mild splenic enlargement. 3. Bilateral lower lung nodules, mildly decreased in size since 08/19/2021, likely benign. In a patient without a known cancer history, no further follow-up imaging of these nodules is necessary. 4. Incidental findings above. COMMENTS: Consistent with the [employer]'s Incidental Findings Committee white paper (J Am Ari Radiol 2018): Any incidental renal lesion less than 1 cm or classified as too small to characterize, or any incidental cystic renal lesion characterized as simple-appearing, is likely benign. No follow-up imaging is recommended for these lesions per consensus recommendations based on imaging criteria. REFERENCES: Olivia Ray, et al. Guidelines for Management of Incidental Pulmonary Nodules Detected on CT Images: From the Fleischner Society 2017. Radiology. 2017;284(1):228-243. ADDENDUM: 09/01/23 [id number] THIS REPORT CONTAINS FINDINGS THAT MAY BE CRITICAL TO PATIENT CARE. The findings and recommendations were verbally communicated by me via telephone conference with Dr. Garcia at 6:55 PM CDT on 09/01/2023. The findings were acknowledged and understood. Laboratory Results WBC 15.87 10^3/uL (3.29-11.43) H 09/01/23 17:15 RBC 5.38 10^6/uL (3.85-5.65) 09/01/23 17:15 Hgb 15.90 g/dL (11.27-16.99) 09/01/23 17:15 Hct 47.3 % (37-53) 09/01/23 17:15 MCV 87.9 fl (82-101) 09/01/23 17:15 MCH 29.6 pg (27-33) 09/01/23 17:15 MCHC 33.6 g/dL (30-55) 09/01/23 17:15 RDW 13.2 % (12.1-15.1) 09/01/23 17:15 Plt Count 141 10^3/cmm (157-399) L 09/01/23 17:15 MPV 9.0 fL (7.4-10.4) 09/01/23 17:15 Neut % (Auto) 85.9 % 09/01/23 17:15 Lymph % (Auto) 5.9 % 09/01/23 17:15 [place] % (Auto) 6.7 % 09/01/23 17:15 Eos % (Auto) 0.4 % 09/01/23 17:15 Baso % (Auto) 0.2 % 09/01/23 17:15 Neut # (Auto) 13.61 10^3/uL (1.8-7.7) H 09/01/23 17:15 Lymph # (Auto) 0.9 10^3/uL (0.8-4.8) 09/01/23 17:15 [place] # (Auto) 1.1 10^3/uL (0.2-0.9) H 09/01/23 17:15 Eos # (Auto) 0.1 10^3/uL (0.0-0.8) 09/01/23 17:15 Baso # (Auto) 0.0 10^3/uL (0.0-0.1) 09/01/23 17:15 Nucleated RBC % (auto) 0 % 09/01/23 17:15 Nucleated RBCs # 0.0 /100WBC 09/01/23 17:15 Sodium 138 mmol/L (136-145) 09/01/23 17:15 Potassium 4.1 mmol/L (3.5-5.1) 09/01/23 17:15 Chloride 103 mmol/L (98-107) 09/01/23 17:15 Carbon Dioxide 24 mmol/L (22-29) 09/01/23 17:15 Anion Gap 15.1 (5-19) 09/01/23 17:15 BUN 9 mg/dL (8-23) 09/01/23 17:15 Creatinine 0.5 mg/dL (0.7-1.2) L 09/01/23 17:15 GFR Calculation 168.5 mL/min (90-130) H 09/01/23 17:15 Glucose 116 mg/dL (65-115) H 09/01/23 17:15 Calculated Osmolality 286 mOsm/kg (285-295) 09/01/23 17:15 Lactic Acid 1.6 mmol/L (0.5-2.2) 09/01/23 17:15 Calcium 8.7 mg/dL (8.5-10.5) 09/01/23 17:15 Total Bilirubin 1.1 mg/dL (0.15-1.2) 09/01/23 17:15 AST 24 U/L (0-40) 09/01/23 17:15 ALT 35 U/L (0-41) 09/01/23 17:15 Alkaline Phosphatase 66 U/L (40-130) 09/01/23 17:15 C-Reactive Protein 25.1 mg/L (0.0-4.9) H 09/01/23 17:15 NT-Pro-B Natriuret Pep 286 pg/mL (0-125) H 09/01/23 17:15 Total Protein 8.2 g/dL (6.6-8.7) 09/01/23 17:15 Albumin 4.3 g/dL (3.5-5.2) 09/01/23 17:15 Globulin 3.9 g/dL (1.3-4.6) 09/01/23 17:15 Discharge Plan Discharge Patient Disposition: Admitted As Inpatient Admit Provider: Lee Prakash Clinical Impression: Acute appendicitis Condition: Stable Coding Level of Care Code ED Senior Medical Technologist for Zenaida Fwd Documented by User: Meghan Garcia MD 09/01/23 19:04 HPI - Abdominal Pain General: Chief Complaint: Abdominal Pain Stated Complaint: right side abd pain Time Seen by Provider: 09/01/23 17:08 History of Present Illness: . [facility] ED PFSH: Medical History Cardiomyopathy Leukemia Osteoarthritis GERD (gastroesophageal reflux disease) COPD (chronic obstructive pulmonary disease) BPH (benign prostatic hyperplasia) Cardiomegaly Hyperlipidemia Hypertension Congestive heart failure Knee pain Steatosis, liver Lumbar spondylitis Obstructive sleep apnea Sacroiliac pain Pacemaker Social History Smoking and tobacco/nicotine status: former use of tobacco/nicotine Alcohol intake: never Substance/Drug Use: never Course Vital Signs: Vital signs: Vital Signs Temperature 98.8 F 09/02/23 07:07 Pulse Rate 71 09/02/23 07:07 Respiratory Rate 17 09/02/23 07:07 Blood Pressure 133/81 09/02/23 07:07 Pulse Oximetry 93 09/02/23 07:07 Oxygen Delivery Me thod Room Air 09/02/23 07:07 MDM - Abdominal Pain Medical Decision Making Patient presents for abdominal pain CT does show appendicitis did start him on Zosyn and spoke to surgeon Dr. Prakash and will admit to him at this time. Medical Records I reviewed the patient's medical records. Lab Data I reviewed the patient's lab results. 09/01/23 17:15 09/01/23 17:15 Labs/Radiology: Radiology Impressions Chest X-Ray 09/01/23 17:23 IMPRESSION: No acute findings. Abdomen/Pelvis CT 09/01/23 17:24 IMPRESSION: 1. Acute appendicitis. No sign of perforation. 2. Mild splenic enlargement. 3. Bilateral lower lung nodules, mildly decreased in size since 08/19/2021, likely benign. In a patient without a known cancer history, no further follow-up imaging of these nodules is necessary. 4. Incidental findings above. COMMENTS: Consistent with the [employer]'s Incidental Findings Committee white paper (J Am Ari Radiol 2018): Any incidental renal lesion less than 1 cm or classified as too small to characterize, or any incidental cystic renal lesion characterized as simple-appearing, is likely benign. No follow-up imaging is recommended for these lesions per consensus recommendations based on imaging criteria. REFERENCES: Olivia Ray, et al. Guidelines for Management of Incidental Pulmonary Nodules Detected on CT Images: From the Fleischner Society 2017. Radiology. 2017;284(1):228-243. ADDENDUM: 09/01/23 0894 THIS REPORT CONTAINS FINDINGS THAT MAY BE CRITICAL TO PATIENT CARE. The findings and recommendations were verbally communicated by me via telephone conference with Dr. Garcia at 6:55 PM CDT on 09/01/2023. The findings were acknowledged and understood. Laboratory Results WBC 15.87 10^3/uL (3.29-11.43) H 09/01/23 17:15 RBC 5.38 10^6/uL (3.85-5.65) 09/01/23 17:15 Hgb 15.90 g/dL (11.27-16.99) 09/01/23 17:15 Hct 47.3 % (37-53) 09/01/23 17:15 MCV 87.9 fl (82-101) 09/01/23 17:15 MCH 29.6 pg (27-33) 09/01/23 17:15 MCHC 33.6 g/dL (30-55) 09/01/23 17:15 RDW 13.2 % (12.1-15.1) 09/01/23 17:15 Plt Count 141 10^3/cmm (157-399) L 09/01/23 17:15 MPV 9.0 fL (7.4-10.4) 09/01/23 17:15 Neut % (Auto) 85.9 % 09/01/23 17:15 Lymph % (Auto) 5.9 % 09/01/23 17:15 [place] % (Auto) 6.7 % 09/01/23 17:15 Eos % (Auto) 0.4 % 09/01/23 17:15 Baso % (Auto) 0.2 % 09/01/23 17:15 Neut # (Auto) 13.61 10^3/uL (1.8-7.7) H 09/01/23 17:15 Lymph # (Auto) 0.9 10^3/uL (0.8-4.8) 09/01/23 17:15 [place] # (Auto) 1.1 10^3/uL (0.2-0.9) H 09/01/23 17:15 Eos # (Auto) 0.1 10^3/uL (0.0-0.8) 09/01/23 17:15 Baso # (Auto) 0.0 10^3/uL (0.0-0.1) 09/01/23 17:15 Nucleated RBC % (auto) 0 % 09/01/23 17:15 Nucleated RBCs # 0.0 /100WBC 09/01/23 17:15 Sodium 138 mmol/L (136-145) 09/01/23 17:15 Potassium 4.1 mmol/L (3.5-5.1) 09/01/23 17:15 Chloride 103 mmol/L (98-107) 09/01/23 17:15 Carbon Dioxide 24 mmol/L (22-29) 09/01/23 17:15 Anion Gap 15.1 (5-19) 09/01/23 17:15 BUN 9 mg/dL (8-23) 09/01/23 17:15 Creatinine 0.5 mg/dL (0.7-1.2) L 09/01/23 17:15 GFR Calculation 168.5 mL/min (90-130) H 09/01/23 17:15 Glucose 116 mg/dL (65-115) H 09/01/23 17:15 Calculated Osmolality 286 mOsm/kg (285-295) 09/01/23 17:15 Lactic Acid 1.6 mmol/L (0.5-2.2) 09/01/23 17:15 Calcium 8.7 mg/dL (8.5-10.5) 09/01/23 17:15 Total Bilirubin 1.1 mg/dL (0.15-1.2) 09/01/23 17:15 AST 24 U/L (0-40) 09/01/23 17:15 ALT 35 U/L (0-41) 09/01/23 17:15 Alkaline Phosphatase 66 U/L (40-130) 09/01/23 17:15 C-Reactive Protein 25.1 mg/L (0.0-4.9) H 09/01/23 17:15 NT-Pro-B Natriuret Pep 286 pg/mL (0-125) H 09/01/23 17:15 Total Protein 8.2 g/dL (6.6-8.7) 09/01/23 17:15 Albumin 4.3 g/dL (3.5-5.2) 09/01/23 17:15 Globulin 3.9 g/dL (1.3-4.6) 09/01/23 17:15 All radiology interpretation(s) finalized by discharge Discharge Plan Discharge Patient Disposition: Admitted As Inpatient Admit Provider: Lee Prakash Clinical Impression: Acute appendicitis Condition: Stable Coding Level of Care Code ED Senior Medical Technologist for Zenaida Gruber
--- NOTE | 2023-09-01 17:23 | XRR_ITS ---
PROCEDURE INFORMATION: Exam: XR Chest Exam date and time: 09/01/2023 5:30 PM Age: 63 years old Clinical indication: Chest wall pain and on breathing; Patient HX: Pacemaker; Additional info: Dyspnea/cough TECHNIQUE: Imaging protocol: Radiologic exam of the chest. Views: 1 view. COMPARISON: CT chest con [id number] 03/23/2023 3:20 PM FINDINGS: Tubes, catheters and devices: There is a 3-lead AICD with leads positioned in the right atrium, right ventricle and coronary sinus. Lungs: There is no consolidation. Pleural spaces: There is no pleural effusion or pneumothorax. Heart/Mediastinum: The cardiac silhouette is within normal limits of size given AP technique. Diaphragm: There is mild asymmetric elevation of the left hemidiaphragm. Bones/joints: There is a screw in the right glenoid. Bones are unremarkable otherwise. XR/XR chest 1V portable [id number] IMPRESSION: No acute findings.
--- NOTE | 2023-09-01 17:24 | CTR_ITS ---
PROCEDURE INFORMATION: Exam: CT Abdomen And Pelvis Without Contrast Exam date and time: 09/01/2023 6:22 PM Age: 63 years old Clinical indication: Abdominal pain; Generalized TECHNIQUE: Imaging protocol: Computed tomography of the abdomen and pelvis without contrast. Radiation optimization: All CT scans at this facility use at least one of these dose optimization techniques: automated exposure control; mA and/or kV adjustment per patient size (includes targeted exams where dose is matched to clinical indication); or iterative reconstruction. COMPARISON: CR XR pelvis 1-2V* [id number] 07/06/2021 1:34 PM RADIATION DOSE METRICS: Total DLP (mGy-cm): 1021 FINDINGS: Lungs: There are calcified and noncalcified bilateral lower lung nodules measuring up to 8 mm on axial series 3, image 12. The nodules were present and slightly larger on 08/19/2021. There is subsegmental atelectasis in the lung bases. Heart: There is mild cardiac enlargement. There is trace pericardial effusion. Diaphragm: There is mild asymmetric elevation of the left hemidiaphragm. Liver: The liver is normal. Gallbladder and bile ducts: Cholelithiasis is present. There is no sign of cholecystitis. There is no intrahepatic or extrahepatic bile duct dilation. Pancreas: The pancreas is unremarkable. Spleen: The spleen is mildly enlarged. Adrenal glands: The adrenal glands are unremarkable. Kidneys and ureters: There is a simple cyst in the right kidney. The kidneys are unremarkable otherwise. No hydronephrosis or stones. No ureteral dilation. Stomach and bowel: The stomach is unremarkable. The small bowel is nondilated. The colon is unremarkable. Appendix: The appendix is dilated to 13 mm. There is mild periappendiceal edema. No appendicolith. No extraluminal gas or fluid collection. Intraperitoneal space: There is no free air or significant intraperitoneal free fluid. Vasculature: There is mild aortic atherosclerotic disease. Lymph nodes: There is no lymphadenopathy in the retroperitoneum, mesentery, pelvis or inguinal regions. Urinary bladder: The urinary bladder is unremarkable. Reproductive: The prostate and seminal vesicles are unremarkable. Bones/joints: There is mild degenerative disease in the lumbar spine. There is mild degenerative disease of both hips. The bony pelvis is intact. Soft tissues: The abdominal wall is intact. CT/CT abdomen pelvis wo con [id number] IMPRESSION: 1. Acute appendicitis. No sign of perforation. 2. Mild splenic enlargement. 3. Bilateral lower lung nodules, mildly decreased in size since 08/19/2021, likely benign. In a patient without a known cancer history, no further follow-up imaging of these nodules is necessary. 4. Incidental findings above. COMMENTS: Consistent with the [employer]'s Incidental Findings Committee white paper (J Am Ari Radiol 2018): Any incidental renal lesion less than 1 cm or classified as too small to characterize, or any incidental cystic renal lesion characterized as simple-appearing, is likely benign. No follow-up imaging is recommended for these lesions per consensus recommendations based on imaging criteria. REFERENCES: Olivia H, et al. Guidelines for Management of Incidental Pulmonary Nodules Detected on CT Images: From the Fleischner Society 2017. Radiology. 2017;284(1):228-243.
[2023-09-01 17:32] LABS: Basophils % 0.2 %; Eosinophils # 0.1 10^3/uL (0.0-0.8); Eosinophils % 0.4 %; Hematocrit 47.3 % (37-53); Lymphocytes # 0.9 10^3/uL (0.8-4.8); Lymphocytes % 5.9 %; Mean Corpuscular HGB Conc 33.6 g/dL (30-55); Mean Corpuscular Hemoglobin 29.6 pg (27-33); Mean Corpuscular Volume 87.9 fl (82-101); Monocytes # 1.1 10^3/uL (0.2-0.9); Monocytes % 6.7 %; Neutrophils # 13.61 10^3/uL (1.8-7.7); Neutrophils % 85.9 %; Nucleated Red Blood Cells % 0 %; Platelet Count 141 10^3/cmm (157-399); Red Blood Count 5.38 10^6/uL (3.85-5.65); Red Cell Distribution Width 13.2 % (12.1-15.1); White Blood Count 15.87 10^3/uL (3.29-11.43)
[2023-09-01 17:52] LABS: Lactic Sepsis W/Reflex 1.6 mmol/L (0.5-2.2)
[2023-09-01 18:02] LABS: Alanine Aminotransferase 35 U/L (0-41); Albumin Level 4.3 g/dL (3.5-5.2); Alkaline Phosphatase 66 U/L (40-130); Anion Gap 15.1 (5-19); Aspartate Amino Transferase 24 U/L (0-40); Blood Urea Nitrogen 9 mg/dL (8-23); C Reactive Protein 25.1 mg/L (0.0-4.9); Calcium 8.7 mg/dL (8.5-10.5); Carbon Dioxide 24 mmol/L (22-29); Chloride 103 mmol/L (98-107); Creatinine Clr Calc Pharmacy 169.4247; Globulin 3.9 g/dL (1.3-4.6); Glomerular Filtration Rate 168.5 mL/min (90-130); Glucose 116 mg/dL (65-115); NT Pro B Type Natriuretic Pept 286 pg/mL (0-125); Osmolality Calculated 286 mOsm/kg (285-295); Potassium 4.1 mmol/L (3.5-5.1); Sodium 138 mmol/L (136-145); Total Bilirubin 1.1 mg/dL (0.15-1.2); Total Protein 8.2 g/dL (6.6-8.7)
[2023-09-01] MEDS: piperacillin-tazobactam 3.375 GM in sodium chloride 0.9% (plus) 50 ML IV (20:02)
[2023-09-01] MEDS: morphine 4 mg/mL SDV 1 mL IVP (20:20)
[2023-09-01] MEDS: sodium chloride 0.9% 1,000 ML 100 ML IV (21:13)
[2023-09-02] VITALS (24 sets, daily range): BP systolic 104–159; BP diastolic 59–99; PULSE 69–127; RESP 14–33; TEMP 36.2–37.1; O2SAT 3–97
[2023-09-02] MEDS: piperacillin-tazobactam 3.375 GM in sodium chloride 0.9% (plus) 50 ML IV ×2 (03:18→19:47)
[2023-09-02] MEDS: sodium chloride 0.9% 1,000 ML 100 ML IV ×2 (07:26→21:07)
[2023-09-02] MEDS: morphine 4 mg/mL SDV 1 mL IVP (08:21)
--- NOTE | 2023-09-02 08:31 | PC.PHAR ---
PT STATES NO LONGER USES ANY INHALERS, JUST THE NEBULIZING SOLUTIONS. PT ALSO, IS NOW A NON SMOKER. PT STOPED AMOXICILLIN 875MG AND STARTED AUGMENTIN 875 MG 08/30/23-RECEIVED 7 DAY SUPPLY.
--- NOTE | 2023-09-02 10:29 | P.HP_ITS ---
Providers/Chief Complaint 2 Admitting Physician: Lee Prakash DO Primary Care Provider: Chevy Hutson DO Chief Complaint: right side abd pain History of Present Illness Buddy Waterman is a 63 year old male who presented to the hospital with 1 day history of right lower quadrant abdominal pain nausea and emesis. He reports feeling chills but denies any recorded fever. He denies hematemesis. Denies any diarrhea, constipation, hematochezia and/or melena. His pain is sharp and constant and does not radiate. Palpation makes pain worse. Nothing makes pain better. A CT of the abdomen pelvis shows acute appendicitis. Review of Systems 2 General: Reports: 10 or more systems reviewed and unremarkable except in HPI and below Medications/Allergies Home Medications Medication Instructions Recorded Confirmed Last Taken Type aspirin 81 mg tablet,delayed 81 mg PO DAILY 11/03/21 09/02/23 08/31/23 History release (Adult Aspirin Regimen) diazepam 5 mg tablet 5 mg PO BID PRN aggitation 11/03/21 09/02/23 Unknown History diphenoxylate-atropine 2.5 1 tab PO Q6H PRN Diarrhea 11/03/21 09/02/23 Unknown History mg-0.025 mg tablet (Lomotil) melatonin 10 mg capsule 10 mg PO BEDTIME PRN sleep 11/03/21 09/02/23 Unknown History omega-3s 360 ob-pcs-fqs-fish oil 1 cap PO BID 11/03/21 09/02/23 08/31/23 History 1,200 mg-D3 1,000 unit capsule (Fish Oil-Vit D3) acetaminophen 325 mg capsule 325 mg PO QID PRN Pain 05/26/22 09/02/23 Unknown History (Tylenol) hydroxychloroquine 200 mg tablet 200 mg PO BID #180 tabs 11/11/22 09/02/23 08/31/23 Rx furosemide 20 mg tablet 20 mg PO QAM #90 tabs 01/14/23 09/02/23 08/31/23 Rx sildenafil (pulm.hypertension) 20 20 mg PO TID PRN Erectile 03/08/23 09/02/23 Unknown History mg tablet Dysfunction hydrocodone 10 mg-acetaminophen 1 tab PO BID PRN pain, severe 30 04/05/23 09/02/23 Unknown Rx 325 mg tablet days #60 tabs tramadol 50 mg tablet 50 mg PO Q6H PRN Pain, mod #120 04/05/23 09/02/23 Unknown Rx tabs rosuvastatin 10 mg tablet 10 mg PO DAILY #90 tabs 07/06/23 09/02/23 08/31/23 Rx spironolactone 50 mg tablet 50 mg PO DAILY #90 tabs 07/06/23 09/02/23 08/31/23 Rx tamsulosin 0.4 mg capsule 0.4 mg PO DAILY 90 days #90 caps 07/06/23 09/02/23 08/31/23 Rx varenicline 0.5 mg (11)-1 mg (42) See Rx Instructions .Route 07/06/23 09/02/23 Unknown Rx tablets in a dose pack ([employer] .eeGeo #60 ea Starting Month Box) albuterol sulfate 2.5 mg/3 mL 2.5 mg (3 mL) inhalation Q4H PRN 08/30/23 09/02/23 Unknown Rx (0.083 %) solution for nebulization shortness of breath or wheezing #90 mL amoxicillin 875 mg-potassium 1 tab PO BID 7 days #14 tabs 08/30/23 09/02/23 08/31/23 Rx clavulanate 125 mg tablet carvedilol 12.5 mg tablet 12.5 mg PO DAILY 09/02/23 09/02/23 08/31/23 History celecoxib 100 mg capsule 100 mg PO BID 09/02/23 09/02/23 08/30/23 History famotidine 40 mg tablet 40 mg PO BID 09/02/23 09/02/23 08/31/23 History lisinopril 5 mg tablet 5 mg PO BID 09/02/23 09/02/23 08/31/23 History Allergies Allergy/AdvReac Type Severity Reaction Status Date / Time oxytetracycline Allergy ADR-Itching Verified 08/30/23 14:29 [From Terramycin with Polymyxin B] polymyxin B Allergy ADR-Itching Verified 08/30/23 14:29 [From Terramycin with Polymyxin B] PFSH Acute 2 PFSH: Medical History Cardiomyopathy Leukemia Osteoarthritis GERD (gastroesophageal reflux disease) COPD (chronic obstructive pulmonary disease) BPH (benign prostatic hyperplasia) Cardiomegaly Hyperlipidemia Hypertension Congestive heart failure Knee pain Steatosis, liver Lumbar spondylitis Obstructive sleep apnea Sacroiliac pain Pacemaker Social History Smoking and tobacco/nicotine status: former use of tobacco/nicotine Alcohol intake: never Substance/Drug Use: never Vitals/I&O/Wt Last Vital Signs Temp 98.8 F 09/02/23 07:07 Pulse 71 09/02/23 07:07 Resp 18 09/02/23 08:21 BP 133/81 09/02/23 07:07 Pulse Ox 93 09/02/23 07:07 O2 Del Method Room Air 09/02/23 07:07 09/01/23 09/02/23 09/02/23 22:59 06:59 14:59 Intake Total 120 / 120 100 / 220 1000 / 1000 Output Total 425 / 425 450 / 450 Balance 120 / 120 -325 / -205 550 / 550 Weight last 48 hrs Weight 222 lb 4.8 oz Weight 220 lb Weight 220 lb Physical Exam 2 Narrative: General : Patient is well developed , no acute distress, oriented x3 Head : Normal cephalic, a-traumatic. Ears : Pinnae and external canal are normal. Hearing is normal. Eyes : PERRLA, Sclera and injection are normal. No conjunctival discharge. Nose : Mucous membranes are without erythema. Throat : buccal mucosa is normal, gums are without significant recession or hypertrophy. Lungs : Equal chest rise bilaterally, no use of accessory muscles, trachea is midline. Cor : Rate and rhythm are normal. Abdomen : Soft, moderate distention, tender to palpation right lower quadrant, negative Rovsing's no g/r/m Extremities : No edema, no cyanosis or clubbing, dorsalis pedis pulses are present bilaterally, non-tender to palpation of calves. Upper extremities are normal bilaterally. Back : non-tender to palpation, no CVA tenderness. Neuro : CN II - XII intact, Upper and lower extremities have equal and full strength Data 09/01/23 17:15 09/01/23 17:15 Micro: Microbiology 09/01/23 18:45 Blood Culture - Preliminary Blood SPECIMEN COLLECTED 09/01/23 18:40 Blood Culture - Preliminary Blood SPECIMEN COLLECTED A&P Assessment and plan (1) Acute appendicitis: Plan Laparoscopic Appendectomy The risks and benefits of the procedure, including but not limited to, bleeding, infection, scar, numbness, pain, damage to surrounding structures, conversion to an open procedure, were explained to the patient. He is understanding of the risks and wishes to proceed. Attestations 2 Medical Necessity Statement*: Patient requires 2 nights in the hospital for IV antibiotics and recovery after laparoscopic appendectomy. His unfortunately so he has no one to take care of him at home the day of surgery. He will likely be discharged home in the morning Coding Level of Care Code 43611 Diagnoses Acute appendicitis K35.80
[2023-09-02] MEDS: sodium chloride 0.9% 1,000 ML 30 ML IV (10:54)
--- NOTE | 2023-09-02 11:09 | ANES.PREANE2 ---
Pre-Anesthetic Assessment Height/Weight: Height 1.68 m Weight 100.834 kg Temp Pulse Resp BP Pulse Ox O2 Del Method 97.6 F 69 18 153/71 94 Room Air 09/02/23 10:46 09/02/23 10:46 09/02/23 10:46 09/02/23 10:46 09/02/23 10:46 09/02/23 10:46 Preop Diagnosis: Acute appendicitis Operation Date: 09/02/23 13:45 Proposed Procedures p Laparoscopic Appendectomy(Not Applicable) - Lee Prakash DO Familial anesthetic complications: none Last intake: Intake Last Liquid Date 09/01/23 Last Liquid Time 19:00 Last Solid Date 08/31/23 Last Solid Time 18:00 Social Tobacco (quit 3 weeks prior) and No alcohol Exam alert, oriented x 3 and clear to auscultation bilaterally Airway Submandibular: within normal limits Cervical ROM: within normal limits Mallampati: Class IV Dentition: chipped (all front teeth severely chipped.) Pulmonary Chronic Obstructive Pulmonary Disease and Sleep Apnea (non-compliant with CPAP) pulmonary nodule CV/HEM Atrial Fibrillation and Congestive Heart Failure 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 None reported Hepatic None reported GI Gastroesophageal Reflux Disease Metabolic Diabetes Mellitus, Hyperlipidemia, Morbid Obesity and Thyroid Disease [facility] [place] None reported Anesthetic Plan ASA status: 3 Anesthesia: General Medications/Allergies Home Medications Medication Instructions Recorded Confirmed Last Taken Type aspirin 81 mg tablet,delayed 81 mg PO DAILY 11/03/21 09/02/23 08/31/23 History release (Adult Aspirin Regimen) diazepam 5 mg tablet 5 mg PO BID PRN aggitation 11/03/21 09/02/23 Unknown History diphenoxylate-atropine 2.5 1 tab PO Q6H PRN Diarrhea 11/03/21 09/02/23 Unknown History mg-0.025 mg tablet (Lomotil) melatonin 10 mg capsule 10 mg PO BEDTIME PRN sleep 11/03/21 09/02/23 Unknown History omega-3s 360 ik-adm-bnf-fish oil 1 cap PO BID 11/03/21 09/02/23 08/31/23 History 1,200 mg-D3 1,000 unit capsule (Fish Oil-Vit D3) acetaminophen 325 mg capsule 325 mg PO QID PRN Pain 05/26/22 09/02/23 Unknown History (Tylenol) hydroxychloroquine 200 mg tablet 200 mg PO BID #180 tabs 11/11/22 09/02/23 08/31/23 Rx furosemide 20 mg tablet 20 mg PO QAM #90 tabs 01/14/23 09/02/23 08/31/23 Rx sildenafil (pulm.hypertension) 20 20 mg PO TID PRN Erectile 03/08/23 09/02/23 Unknown History mg tablet Dysfunction hydrocodone 10 mg-acetaminophen 1 tab PO BID PRN pain, severe 30 04/05/23 09/02/23 Unknown Rx 325 mg tablet days #60 tabs tramadol 50 mg tablet 50 mg PO Q6H PRN Pain, mod #120 04/05/23 09/02/23 Unknown Rx tabs rosuvastatin 10 mg tablet 10 mg PO DAILY #90 tabs 07/06/23 09/02/23 08/31/23 Rx spironolactone 50 mg tablet 50 mg PO DAILY #90 tabs 07/06/23 09/02/23 08/31/23 Rx tamsulosin 0.4 mg capsule 0.4 mg PO DAILY 90 days #90 caps 07/06/23 09/02/23 08/31/23 Rx varenicline 0.5 mg (11)-1 mg (42) See Rx Instructions .Route 07/06/23 09/02/23 Unknown Rx tablets in a dose pack ([employer] .COMPLEX #60 ea Starting Month Box) albuterol sulfate 2.5 mg/3 mL 2.5 mg (3 mL) inhalation Q4H PRN 08/30/23 09/02/23 Unknown Rx (0.083 %) solution for nebulization shortness of breath or wheezing #90 mL amoxicillin 875 mg-potassium 1 tab PO BID 7 days #14 tabs 08/30/23 09/02/23 08/31/23 Rx clavulanate 125 mg tablet carvedilol 12.5 mg tablet 12.5 mg PO DAILY 09/02/23 09/02/23 08/31/23 History celecoxib 100 mg capsule 100 mg PO BID 09/02/23 09/02/23 08/30/23 History famotidine 40 mg tablet 40 mg PO BID 09/02/23 09/02/23 08/31/23 History lisinopril 5 mg tablet 5 mg PO BID 09/02/23 09/02/23 08/31/23 History Allergies Allergy/AdvReac Type Severity Reaction Status Date / Time oxytetracycline Allergy ADR-Itching Verified 08/30/23 14:29 [From Terramycin with Polymyxin B] polymyxin B Allergy ADR-Itching Verified 08/30/23 14:29 [From Terramycin with Polymyxin B] Current Medications Generic Name Dose Route Start Last Admin Trade Name Freq PRN Reason Stop Dose Admin Piperacillin Sod/Tazobactam 50 mls @ 100 mls/hr 09/02/23 03:00 09/02/23 05:37 Sod 3.375 gm/ Sodium Chloride IV Infused Q8H ALBARO Infusion Protocol Sodium Chloride 1,000 mls @ 100 mls/hr 09/01/23 20:44 09/02/23 07:26 Sodium Chloride 0.9% IV 100 mls/hr .Q10H ALBARO Administration Sodium Chloride 1,000 mls @ 30 mls/hr 09/02/23 10:45 09/02/23 10:54 Sodium Chloride 0.9% IV 09/03/23 10:44 30 mls/hr .Q24H ALBARO Administration Morphine Sulfate 4 mg 09/01/23 20:44 09/02/23 08:21 Morphine 4 Mg/Ml Sdv 1 Ml IVP 4 mg Q4H PRN Administration SEVERE PAIN PFSH Anesthesia Medical History Cardiomyopathy Leukemia Osteoarthritis GERD (gastroesophageal reflux disease) COPD (chronic obstructive pulmonary disease) BPH (benign prostatic hyperplasia) Cardiomegaly Hyperlipidemia Hypertension Congestive heart failure Knee pain Steatosis, liver Lumbar spondylitis Obstructive sleep apnea Sacroiliac pain Pacemaker Social History Smoking and tobacco/nicotine status: former use of tobacco/nicotine Alcohol intake: never Substance/Drug Use: never Data Anesthesia 09/01/23 17:15 09/01/23 17:15 Short CBC 09/01/23 Range/Units 17:15 WBC 15.87 H (3.29-11.43) 10^3/uL Hgb 15.90 (11.27-16.99) g/dL Hct 47.3 (37-53) % MCV 87.9 (82-101) fl Plt Count 141 L (157-399) 10^3/cmm Neut % (Auto) 85.9 % Neut # (Auto) 13.61 H (1.8-7.7) 10^3/uL BMP 09/01/23 17:15 Sodium 138 Potassium 4.1 Chloride 103 Carbon Dioxide 24 BUN 9 Creatinine 0.5 L Glucose 116 H Calcium 8.7 Cardiac Enzymes 09/01/23 Range/Units 17:15 NT-Pro-B Natriuret Pep 286 H (0-125) pg/mL Liver Function 09/01/23 Range/Units 17:15 Total Bilirubin 1.1 (0.15-1.2) mg/dL AST 24 (0-40) U/L ALT 35 (0-41) U/L Alkaline Phosphatase 66 (40-130) U/L Albumin 4.3 (3.5-5.2) g/dL Coags 09/01/23 17:15 C-Reactive Protein 25.1 H Microbiology 09/01/23 18:45 Blood Culture - Preliminary Blood SPECIMEN COLLECTED 09/01/23 18:40 Blood Culture - Preliminary Blood SPECIMEN COLLECTED Cardiac Studies: Echocardiogram 06/12/22
[2023-09-02 11:19] LABS: Glucose Point of Care 103 mg/dL (70-110)
[2023-09-02] MEDS: lidocaine-epi 2% PF 1:200,000 20 mL SDV INJECTION (11:53)
--- NOTE | 2023-09-02 12:11 | P.OP_ITS ---
Operative Report Date of procedure: September 02, 2023 Pre-op diagnosis: Appendicitis Post-op findings: Perforated appendicitis with abscess Procedure done: Laparoscopic appendectomy Specimens removed/disposition: Appendix Surgeon: Lee Prakash DO Anesthesia: General and Local Estimated blood loss (mL): 5 Complications: None apparent Brief History: This very pleasant 63-year-old gentleman who presented to the hospital with appendicitis. Laparoscopic appendectomy is indicated. The risk benefits were explained and documented. Procedure: Patient was wheeled into the operative room and placed on the OR table in a supine position. Abdomen was inspected prepped and draped in usual sterile fashion. Time-out was performed and all present were in agreement. A 15 blade scalp was used to make a stab incision in the left upper quadrant and intra- abdominal insufflation was achieved using a Veress needle. After localizing the tissue incisions were made and a 12 millimeter trocar was placed into the umbilicus as well as a 5mm in the right lower quadrant and a 5 mm in the left lower quadrant . The appendix was identified and was severely inflamed inflamed. I used the laparoscopic LigaSure to free the appendix from the surrounding tissues and ligate the mesoappendix at the base. As I was ligating the mesoappendix at the base, I encountered an abscess some purulence drained. I then used 2 PDS endo-loops to snare the base of the appendix. I then used the laparoscopic LigaSure to ligate the appendix distally. The appendix was removed from the abdomen using an Endo-Catch bag through the umbilical incision. Localized irrigation and suctioning for the appendix was previously located. I examined the abdomen and no further pathology was identified. Hemostasis was noted. I then closed the umbilical site with a Jesus-Arlette and 0 Vicryl suture in a figure of 8 fashion. All ports removed. Skin was washed and dried. Incisions were closed with 4 O Vicryl in a subcuticular interrupted fashion. Skin glue was applied. Patient tolerated the procedure well.
--- NOTE | 2023-09-02 13:52 | ANE.PACU2 ---
Inpatient post-anesthesia follow up: Airway intact: Yes Vital signs: Temperature 97.6 F Pulse Rate 99 Respiratory Rate 18 Blood Pressure 134/70 Pulse Oximetry 91 Oxygen Delivery Me thod Nasal Cannula Oxygen Flow Rate 2 Fraction of Inspir ed Oxygen Hydration adequate: Yes Nausea and vomiting: No Pain level: 2 Mental status: Baseline
[2023-09-02] MEDS: albuterol 2.5 mg/3 mL Neb INHALATION (14:08)
[2023-09-02] MEDS: carvedilol 12.5 mg Tablet PO (14:17)
[2023-09-02] MEDS: atorvastatin 40 mg Tablet PO (14:18)
[2023-09-02] MEDS: tamsulosin 0.4 mg Capsule 0.400000000000000022 MG PO (14:18)
[2023-09-02] MEDS: famotidine 20 mg Tablet 40 MG PO (17:44)
[2023-09-02] MEDS: HYDROcodone-acetaminophen 7.5-325 mg Tablet 1 TAB PO (17:44)
[2023-09-02] MEDS: hydroxychloroquine 200 mg Tablet PO (17:45)
[2023-09-02] MEDS: lisinopril 5 mg Tablet PO (17:45)
[2023-09-02] MEDS: FUROsemide 20 mg Tablet PO (22:13)
[2023-09-02] MEDS: spironolactone 25 mg Tablet 50 MG PO (22:13)
[2023-09-03] VITALS (13 sets, daily range): BP systolic 96–123; BP diastolic 60–72; PULSE 69–84; RESP 16–18; TEMP 36.4–36.8; O2SAT 92–96
[2023-09-03] MEDS: piperacillin-tazobactam 3.375 GM in sodium chloride 0.9% (plus) 50 ML IV ×3 (03:01→18:35)
[2023-09-03] MEDS: HYDROcodone-acetaminophen 7.5-325 mg Tablet 1 TAB PO ×4 (03:10→17:49)
[2023-09-03 05:44] LABS: Basophils % 0.2 %; Eosinophils % 0.2 %; Lymphocytes # 1.3 10^3/uL (0.8-4.8); Lymphocytes % 10.2 %; Mean Corpuscular HGB Conc 32.7 g/dL (30-55); Mean Corpuscular Hemoglobin 29.5 pg (27-33); Mean Corpuscular Volume 90.2 fl (82-101); Mean Platelet Volume 8.8 fL (7.4-10.4); Monocytes # 1.1 10^3/uL (0.2-0.9); Monocytes % 8.3 %; Neutrophils # 10.18 10^3/uL (1.8-7.7); Neutrophils % 80.3 %; Nucleated Red Blood Cells % 0 %; Platelet Count 135 10^3/cmm (157-399); Red Blood Count 4.99 10^6/uL (3.85-5.65); Red Cell Distribution Width 13.3 % (12.1-15.1); White Blood Count 12.66 10^3/uL (3.29-11.43)
[2023-09-03 06:04] LABS: Anion Gap 14.9 (5-19); Blood Urea Nitrogen 11 mg/dL (8-23); Calcium 8.4 mg/dL (8.5-10.5); Carbon Dioxide 25 mmol/L (22-29); Chloride 103 mmol/L (98-107); Creatinine Clr Calc Pharmacy 108.5197; Glucose 109 mg/dL (65-115); Osmolality Calculated 288 mOsm/kg (285-295); Potassium 3.9 mmol/L (3.5-5.1); Sodium 139 mmol/L (136-145)
[2023-09-03] MEDS: FUROsemide 20 mg Tablet PO (06:26)
[2023-09-03] MEDS: spironolactone 25 mg Tablet 50 MG PO (08:04)
[2023-09-03] MEDS: lisinopril 5 mg Tablet PO ×2 (08:04→17:49)
[2023-09-03] MEDS: carvedilol 12.5 mg Tablet PO (08:04)
[2023-09-03] MEDS: hydroxychloroquine 200 mg Tablet PO ×2 (08:04→17:49)
[2023-09-03] MEDS: atorvastatin 40 mg Tablet PO (08:04)
[2023-09-03] MEDS: famotidine 20 mg Tablet 40 MG PO ×2 (08:04→17:49)
[2023-09-03] MEDS: aspirin 81 mg EC Tablet PO (08:05)
[2023-09-03] MEDS: tamsulosin 0.4 mg Capsule 0.400000000000000022 MG PO (08:05)
[2023-09-03] MEDS: albuterol 2.5 mg/3 mL Neb INHALATION ×3 (08:09→22:00)
--- NOTE | 2023-09-03 09:03 | P.PN_ITS ---
Subjective 2 Subjective: Patient seen and examined. Pain controlled. Still no BM or flatus. He is having some difficulty breathing today in the background of congestive heart failure and COPD. Vitals/I&O/Wt Last Vital Signs Temp 98.5 F 09/04/23 07:38 Pulse 84 09/04/23 07:38 Resp 21 H 09/04/23 07:38 BP 121/63 09/04/23 07:38 Pulse Ox 94 09/04/23 07:38 O2 Del Method Nasal Cannula 09/04/23 07:38 O2 Flow Rate 1 09/03/23 16:16 09/03/23 09/04/23 09/04/23 22:59 06:59 14:59 Intake Total 285 / 1020 290 / 1310 290 / 290 Output Total 450 / 850 Balance 285 / 620 -160 / 460 290 / 290 Weight last 48 hrs Weight 230 lb Weight 230 lb 11.2 oz Physical Exam 2 Narrative: General: No acute distress, awake alert and oriented x 3 Abdomen: Soft , Distended, appropriately tender, no guarding or rebound Data 09/04/23 04:50 09/04/23 04:50 A&P Assessment and plan (1) Acute perforated appendicitis: (2) Congestive heart failure: Qualifiers: Heart failure type: systolic Heart failure chronicity: chronic Qualified Code(s): I50.22 - Chronic systolic (congestive) heart failure (3) Type 2 diabetes mellitus without complications: Qualifiers: 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 insulin use: without halfway use Qualified Code(s): E11.9 - Type 2 diabetes mellitus without complications (4) Chronic bronchitis: Qualifiers: Chronic bronchitis type: mucopurulent Qualified Code(s): J41.1 - Mucopurulent chronic bronchitis (5) Dyspnea: Plan Sober day #1 status post laparoscopic appendectomy IV antibiotics Breathing treatment Incentive spirometer use Solid food Ambulate Will keep another 24 hours of IV antibiotics secondary to perforated appendicitis Will reassess respiratory status tomorrow Likely DC home tomorrow Attestations 2 Medical Necessity Statement*: Patient requires at least 1 more night in the hospital for IV antibiotics secondary to perforated appendicitis breathing treatments due to dyspnea Coding Level of Care Code Acute Code for [facility] Diagnoses Acute perforated appendicitis K35.32 Chronic systolic congestive heart failure I50.22 Heart failure type: systolic Heart failure chronicity: chronic Type 2 diabetes mellitus without complication, without long-term current use of insulin E11.9 Diabetes mellitus halfway insulin use: without halfway use Mucopurulent chronic bronchitis J41.1 Chronic bronchitis type: mucopurulent Dyspnea R06.00
--- NOTE | 2023-09-03 09:45 | PC.CHAP ---
Pastoral Care Encounter/Spiritual Assessment Type of Contact [] Declined phlebotomist prn visit [] Patient/Family/Request visit [] Outpatient visit [] Follow-up visit [] Physician referral [] Code/Alert [x] Routine visit [] Staff referral [] Actively dying [] Patient sleeping [] Family support [] [] Out of room [] Palliative care [] [] Receiving care in room [] Pre-surgical visit [] Trauma [] Long length of stay [] ICU visit [] Other: Relational/Emotional Strength [x] Patient feels connected with others/family/visitors/staff [] Distress [] Loneliness/isolation [] Abandonment Spirituality of Patient [x] Person of Danya [x] Attends Mandaen of their Danya [x] Believes in Prayer [x] Reads Bible or Zoroastrianism materials [] There are Spiritual issues to be addressed Slip Box Changer Interventions [x] Prayer [x] Active listening [] Non-anxious presence [x] Spiritual/emotional support [] Crisis/trauma care [] Spiritual counseling [] Bereavement support [] Provided bereavement packet [] Provided Bible/devotional materials [] Provided toy/stuffed animal, coloring book to patient or family member [] Provided Communion [] Anointing/C[place]mer [] Salvation [x] Completed spiritual assessment [] Other: Impact on Illness or Injury [] Angry [] Fearful [] Anxious [] Often cries [] Exhaustion [] Unable to work [] Unable to attend denominational [] Unable to walk/stand [] Unable to read [] Unable to drive [] Unable to eat/drink [] Unable to sleep [] Unable to be with family [] Patient intubated [] Other: Summary Time spent with patient 10 min
[2023-09-03] MEDS: benzonatate 100 mg Capsule PO ×2 (11:27→17:49)
--- NOTE | 2023-09-03 14:22 | PC.SOCIAL ---
Pg 2 IMM Explained to pt Pg 2 IMM. No questions voiced. Provided pt a copy. Initialed, dated, & timed a copy & placed in chart.
[2023-09-04 00:16] VITALS: BP 115/71; PULSE 78; RESP 17; TEMP 36.8; O2SAT 96
[2023-09-04] MEDS: piperacillin-tazobactam 3.375 GM in sodium chloride 0.9% (plus) 50 ML IV (03:23)
[2023-09-04 05:20] LABS: Basophils % 0.2 %; Eosinophils # 0.2 10^3/uL (0.0-0.8); Eosinophils % 1.5 %; Hematocrit 40.5 % (37-53); Lymphocytes # 0.7 10^3/uL (0.8-4.8); Lymphocytes % 6.4 %; Mean Corpuscular HGB Conc 32.1 g/dL (30-55); Mean Corpuscular Volume 90.2 fl (82-101); Mean Platelet Volume 8.9 fL (7.4-10.4); Monocytes # 0.8 10^3/uL (0.2-0.9); Monocytes % 7.6 %; Neutrophils # 9.03 10^3/uL (1.8-7.7); Neutrophils % 82.8 %; Nucleated Red Blood Cells % 0 %; Platelet Count 128 10^3/cmm (157-399); Red Blood Count 4.49 10^6/uL (3.85-5.65); Red Cell Distribution Width 13.2 % (12.1-15.1)
[2023-09-04 05:26] VITALS: BP 124/72; PULSE 90; RESP 17; TEMP 36.8; O2SAT 90
[2023-09-04 05:36] LABS: Anion Gap 14.5 (5-19); Blood Urea Nitrogen 15 mg/dL (8-23); Calcium 8.5 mg/dL (8.5-10.5); Carbon Dioxide 25 mmol/L (22-29); Chloride 98 mmol/L (98-107); Creatinine Clr Calc Pharmacy 123.8256; Glomerular Filtration Rate 114.3 mL/min (90-130); Glucose 109 mg/dL (65-115); Osmolality Calculated 279 mOsm/kg (285-295); Potassium 3.5 mmol/L (3.5-5.1); Sodium 134 mmol/L (136-145)
[2023-09-04] MEDS: HYDROcodone-acetaminophen 7.5-325 mg Tablet 1 TAB PO (06:02)
[2023-09-04] MEDS: FUROsemide 20 mg Tablet PO (06:02)
[2023-09-04] MEDS: benzonatate 100 mg Capsule PO (06:07)
[2023-09-04 07:38] VITALS: BP 121/63; PULSE 84; RESP 21; TEMP 36.9; O2SAT 94
[2023-09-04] MEDS: famotidine 20 mg Tablet 40 MG PO (09:06)
[2023-09-04] MEDS: carvedilol 12.5 mg Tablet PO (09:06)
[2023-09-04] MEDS: atorvastatin 40 mg Tablet PO (09:06)
[2023-09-04] MEDS: spironolactone 25 mg Tablet 50 MG PO (09:06)
[2023-09-04] MEDS: lisinopril 5 mg Tablet PO (09:06)
[2023-09-04] MEDS: aspirin 81 mg EC Tablet PO (09:06)
[2023-09-04] MEDS: tamsulosin 0.4 mg Capsule 0.400000000000000022 MG PO (09:06)
--- NOTE | 2023-09-04 09:07 | PM.DCS ---
Discharge Providers Date of Admission: 09/02/23 12:09 Date of Discharge: September 04, 2023 Attending Provider at Admission: Lee Prakash DO Attending Provider at Discharge: Lee Prakash DO Primary Care Provider: Chevy Hutson DO Diagnoses at Discharge Discharge Diagnosis (1) Acute perforated appendicitis: Status: Acute (2) Congestive heart failure: Status: Acute Qualifiers: Heart failure type: systolic Heart failure chronicity: chronic Qualified Code(s): I50.22 - Chronic systolic (congestive) heart failure (3) Type 2 diabetes mellitus without complications: Status: Acute Qualifiers: Diabetes mellitus [facility] insulin use: without [facility] use Qualified Code(s): E11.9 - Type 2 diabetes mellitus without complications (4) Chronic bronchitis: Status: Acute Qualifiers: Chronic bronchitis type: mucopurulent Qualified Code(s): J41.1 - Mucopurulent chronic bronchitis (5) Dyspnea: Status: Acute Reason for Visit Reason for Visit: right side abd pain Hospital Course Hospital Course This very pleasant 63-year-old gentleman came into the hospital with abdominal pain. He was diagnosed with acute appendicitis underwent laparoscopic appendectomy. Intraoperatively he was found to have perforation contained in the mesoappendix. He stayed 2 days postoperatively for IV antibiotics and breathing treatments secondary to dyspnea in the background of chronic bronchitis and CHF. He was discharged home in good condition and with follow-up Physical Exam Narrative: General : Patient is well developed , no acute distress, oriented x3 Head : Normal cephalic, a-traumatic. Ears : Pinnae and external canal are normal. Hearing is normal. Eyes : PERRLA, Sclera and injection are normal. No conjunctival discharge. Nose : Mucous membranes are without erythema. Throat : buccal mucosa is normal, gums are without significant recession or hypertrophy. Lungs : Equal chest rise bilaterally, no use of accessory muscles, trachea is midline. Cor : Rate and rhythm are normal. Abdomen : Soft, moderately distended, appropriately tender no g/r/m Extremities : No edema, no cyanosis or clubbing, dorsalis pedis pulses are present bilaterally, non-tender to palpation of calves. Upper extremities are normal bilaterally. Back : non-tender to palpation, no CVA tenderness. Neuro : CN II - XII intact, Upper and lower extremities have equal and full strength Discharge Data Studies Completed and Pending Completed Studies During Hospitalization Category Date Time Status CT abdomen pelvis wo con [id number] Stat Cat Scan 09/01/23 17:24 Completed XR chest 1V portable [id number] Stat Exams 09/01/23 17:23 Completed Pending at discharge Category Date Time Status BMP [Basic Metabolic Panel] AM LABS Lab 09/05/23 04:00 Ordered Blood Culture Stat Lab 09/01/23 18:45 Results CBC Auto Diff [Complete Blood Count w/Auto] AM LABS Lab 09/05/23 04:00 Ordered Magnesium AM LABS Lab 09/05/23 04:00 Ordered Pathology: Surgical [PTH] Routine Pth 09/02/23 12:03 Received Radiology Impressions Chest X-Ray 09/01/23 17:23 IMPRESSION: No acute findings. Abdomen/Pelvis CT 09/01/23 17:24 IMPRESSION: 1. Acute appendicitis. No sign of perforation. 2. Mild splenic enlargement. 3. Bilateral lower lung nodules, mildly decreased in size since 08/19/2021, likely benign. In a patient without a known cancer history, no further follow-up imaging of these nodules is necessary. 4. Incidental findings above. COMMENTS: Consistent with the [employer]'s Incidental Findings Committee white paper (J Am Ari Radiol 2018): Any incidental renal lesion less than 1 cm or classified as too small to characterize, or any incidental cystic renal lesion characterized as simple-appearing, is likely benign. No follow-up imaging is recommended for these lesions per consensus recommendations based on imaging criteria. REFERENCES: Olivia Ray, et al. Guidelines for Management of Incidental Pulmonary Nodules Detected on CT Images: From the Fleischner Society 2017. Radiology. 2017;284(1):228-243. ADDENDUM: 09/01/23 1897 THIS REPORT CONTAINS FINDINGS THAT MAY BE CRITICAL TO PATIENT CARE. The findings and recommendations were verbally communicated by me via telephone conference with Dr. Garcia at 6:55 PM CDT on 09/01/2023. The findings were acknowledged and understood. Laboratory Results WBC 10.90 10^3/uL (3.29-11.43) 09/04/23 04:50 RBC 4.49 10^6/uL (3.85-5.65) 09/04/23 04:50 Hgb 13.00 g/dL (11.27-16.99) 09/04/23 04:50 Hct 40.5 % (37-53) 09/04/23 04:50 MCV 90.2 fl (82-101) 09/04/23 04:50 MCH 29.0 pg (27-33) 09/04/23 04:50 MCHC 32.1 g/dL (30-55) 09/04/23 04:50 RDW 13.2 % (12.1-15.1) 09/04/23 04:50 Plt Count 128 10^3/cmm (157-399) L 09/04/23 04:50 MPV 8.9 fL (7.4-10.4) 09/04/23 04:50 Neut % (Auto) 82.8 % 09/04/23 04:50 Lymph % (Auto) 6.4 % 09/04/23 04:50 [place] % (Auto) 7.6 % 09/04/23 04:50 Eos % (Auto) 1.5 % 09/04/23 04:50 Baso % (Auto) 0.2 % 09/04/23 04:50 Neut # (Auto) 9.03 10^3/uL (1.8-7.7) H 09/04/23 04:50 Lymph # (Auto) 0.7 10^3/uL (0.8-4.8) L 09/04/23 04:50 [place] # (Auto) 0.8 10^3/uL (0.2-0.9) 09/04/23 04:50 Eos # (Auto) 0.2 10^3/uL (0.0-0.8) 09/04/23 04:50 Baso # (Auto) 0.0 10^3/uL (0.0-0.1) 09/04/23 04:50 Nucleated RBC % (auto) 0 % 09/04/23 04:50 Nucleated RBCs # 0.0 /100WBC 09/04/23 04:50 Sodium 134 mmol/L (136-145) L 09/04/23 04:50 Potassium 3.5 mmol/L (3.5-5.1) 09/04/23 04:50 Chloride 98 mmol/L (98-107) 09/04/23 04:50 Carbon Dioxide 25 mmol/L (22-29) 09/04/23 04:50 Anion Gap 14.5 (5-19) 09/04/23 04:50 BUN 15 mg/dL (8-23) 09/04/23 04:50 Creatinine 0.7 mg/dL (0.7-1.2) 09/04/23 04:50 GFR Calculation 114.3 mL/min (90-130) 09/04/23 04:50 Glucose 109 mg/dL (65-115) 09/04/23 04:50 POC Glucose 103 mg/dL (70-110) 09/02/23 11:15 Calculated Osmolality 279 mOsm/kg (285-295) L 09/04/23 04:50 Lactic Acid 1.6 mmol/L (0.5-2.2) 09/01/23 17:15 Calcium 8.5 mg/dL (8.5-10.5) 09/04/23 04:50 Magnesium 2.0 mg/dL (1.7-2.3) 09/04/23 04:50 Total Bilirubin 1.1 mg/dL (0.15-1.2) 09/01/23 17:15 AST 24 U/L (0-40) 09/01/23 17:15 ALT 35 U/L (0-41) 09/01/23 17:15 Alkaline Phosphatase 66 U/L (40-130) 09/01/23 17:15 C-Reactive Protein 25.1 mg/L (0.0-4.9) H 09/01/23 17:15 NT-Pro-B Natriuret Pep 286 pg/mL (0-125) H 09/01/23 17:15 Total Protein 8.2 g/dL (6.6-8.7) 09/01/23 17:15 Albumin 4.3 g/dL (3.5-5.2) 09/01/23 17:15 Globulin 3.9 g/dL (1.3-4.6) 09/01/23 17:15 Procedures Performed Laparoscopic appendectomy Vitals Last Vital Signs Temp 98.5 F 09/04/23 07:38 Pulse 84 09/04/23 07:38 Resp 21 H 09/04/23 07:38 BP 121/63 09/04/23 07:38 Pulse Ox 94 09/04/23 07:38 O2 Del Method Nasal Cannula 09/04/23 07:38 O2 Flow Rate 1 09/03/23 16:16 Discharge Plan Discharge Patient Disposition: Home Condition: Stable Prescriptions: New amoxicillin-pot clavulanate 875-125 mg tablet 1 tab PO BID 12 Days Qty: 24 0RF hydrocodone-acetaminophen 10-325 mg tablet 1 tab PO Q6H PRN (Reason: pain) Qty: 20 0RF Colace 100 mg capsule 100 mg PO BID Qty: 14 0RF Continued aspirin [Adult Aspirin Regimen] 81 mg tablet,delayed release (DR/EC) 81 mg PO DAILY [id number]-fish oil-D3 [Fish Oil-Vit D3] 360 mg-1,200 mg -1,000 unit capsule 1 cap PO BID diazepam 5 mg tablet 5 mg PO BID PRN (Reason: aggitation) diphenoxylate-atropine [Lomotil] 2.5-0.025 mg tablet 1 tab PO Q6H PRN (Reason: Diarrhea) melatonin 10 mg capsule 10 mg PO BEDTIME PRN (Reason: sleep) sildenafil (pulm.hypertension) 20 mg tablet 20 mg PO TID PRN (Reason: Erectile Dysfunction) Rx Instructions: administer doses at least 4-6 hours apart rosuvastatin 10 mg tablet 10 mg PO DAILY Qty: 90 3RF tamsulosin 0.4 mg capsule 0.4 mg PO DAILY 90 Days Qty: 90 3RF varenicline [Chantix Starting Month Box] 0.5 mg (11)- 1 mg (42) tablets,dose pack See Rx Instructions .ROUTE .COMPLEX Qty: 60 2RF Rx Instructions: Take 1/2 tab daily x 7 days, then increase to 1/2 tab BID x 7 days, then increase to one tab BID. albuterol sulfate 2.5 mg /3 mL (0.083 %) solution for nebulization 2.5 mg inhalation Q4H PRN (Reason: shortness of breath or wheezing) Qty: 90 0RF hydroxychloroquine 200 mg tablet 200 mg PO BID Qty: 180 1RF furosemide 20 mg tablet 20 mg PO QAM Qty: 90 2RF spironolactone 50 mg tablet 50 mg PO DAILY Qty: 90 1RF carvedilol 12.5 mg tablet 12.5 mg PO DAILY famotidine 40 mg tablet 40 mg PO BID lisinopril 5 mg tablet 5 mg PO BID celecoxib 100 mg capsule 100 mg PO BID Held acetaminophen [Tylenol] 325 mg capsule 325 mg PO QID PRN (Reason: Pain) Hold Instructions: Resume on 09/09/23. hydrocodone-acetaminophen 10-325 mg tablet 1 tab PO BID PRN (Reason: pain, severe) 30 Days Qty: 60 0RF Hold Instructions: Resume on 09/08/23. tramadol 50 mg tablet 50 mg PO Q6H PRN (Reason: Pain, mod) Qty: 120 0RF Hold Instructions: Resume on 09/09/23. Discontinued amoxicillin-pot clavulanate 875-125 mg tablet 1 tab PO BID 7 Days Qty: 14 0RF Discharge Orders: Discharge Order (Routine); Ordered 09/04/23 Ordered By: Lee Prakash Referrals: Chevy Hutson DO [Primary Care Provider] - 4-7 days Lee Prakash DO [Physician] - 2 weeks Discharge Diet: Advance as tolerated Discharge Activity: Resume usual activity Patient Instructions: Opioid Safety, Post Anesthesia Care Activity Restrictions/Additional Instructions: Do not soak incisions underwater for 2 weeks. Shower daily. Discharge Attestations Time Spent in Discharge Care*: less than 30 min Quality Metrics Clinical Quality Measures [ No reported AMI, CVA or VTE this stay] Coding Level of Care Code Acute Code for [facility] Fwd Diagnoses Acute perforated appendicitis K35.32 Chronic systolic congestive heart failure I50.22 Heart failure type: systolic Heart failure chronicity: chronic Type 2 diabetes mellitus without complication, without long-term current use of insulin E11.9 Diabetes mellitus [employer] insulin use: without [facility] use Mucopurulent chronic bronchitis J41.1 Chronic bronchitis type: mucopurulent Dyspnea R06.00
[2023-09-04] MEDS: hydroxychloroquine 200 mg Tablet PO (09:11)
[2023-09-04 11:24] VITALS: BP 105/60; PULSE 72; RESP 17; TEMP 37; O2SAT 92
== END 2023-09-04 11:52 | disposition home or self-care (01) | DRG 398 ==
LOC: ER 19:04 → MEDSURG 23:13
PROVIDERS: Emergency Medicine; Admitting Provider Surgery; Emergency Provider Emergency Medicine; PCP Family Medicine; Visit Provider Surgery
PROC: 0DTJ4ZZ Resection of Appendix, Percutaneous Endoscopic Approach (ICD-10-PCS; CPT 44970; principal; 2023-09-02 13:35)
DX: K35.33 Acute appendicitis with perforation, localized peritonitis, and gangrene, with abscess (principal); C95.90 Leukemia, unspecified not having achieved remission; I42.9 Cardiomyopathy, unspecified; I50.22 Chronic systolic (congestive) heart failure; M19.90 Unspecified osteoarthritis, unspecified site; K21.9 Gastro-esophageal reflux disease without esophagitis; J41.1 Mucopurulent chronic bronchitis; Z87.891 Personal history of nicotine dependence; N40.0 Benign prostatic hyperplasia without lower urinary tract symptoms; E78.5 Hyperlipidemia, unspecified; I11.0 Hypertensive heart disease with heart failure; K76.0 Fatty (change of) liver, not elsewhere classified; M46.96 Unspecified inflammatory spondylopathy, lumbar region; G47.33 Obstructive sleep apnea (adult) (pediatric); Z95.810 Presence of automatic (implantable) cardiac defibrillator
CPT/HCPCS: 36415; 36416; 71045; 74176; 80048; 80053; 82962; 83605; 83735; 83880; 85025; 86140; 87040; 88304; 94640; G0378; J0330; J1100; J2270; J2405; J2543; J2704; J3010; J3490; J7030; J7613

== ENCOUNTER → 2023-09-17 10:21 | Outpatient (BNVA) | payer MEDICARE, SELFPAY | PROVIDERS: PCP Family Medicine; Visit Provider Surgery | DX: Z90.49 Acquired absence of other specified parts of digestive tract (principal); Z98.890 Other specified postprocedural states | CPT/HCPCS: 99024 ==

== ENCOUNTER → 2023-09-28 13:01 | Outpatient (BNVA) | payer MEDICARE, SELFPAY | PROVIDERS: PCP Family Medicine; Visit Provider Podiatrist Foot & Ankle Surgery | DX: B35.1 Tinea unguium (principal); I73.9 Peripheral vascular disease, unspecified | CPT/HCPCS: 11721 ==

== ENCOUNTER 2023-11-20 13:01 | Emergency (ER) | payer MEDICARE, SELFPAY ==
[2023-11-20 13:13] VITALS: BP 119/71; PULSE 72; RESP 17; TEMP 36.8; O2SAT 95; BMI 37.1
--- NOTE | 2023-11-20 13:21 | W.ED.SKABFB ---
HPI - Skin/Abscess/Foreign Bdy General: Chief complaint: Skin/Abscess/Foreign Body Stated complaint: hornet sting Time Seen by Provider: 11/20/23 13:20 Source: patient Mode of arrival: ambulatory Limitations: no limitations History of Present Illness: Patient is a very nice 63-year-old gentleman here after he was referred here by the [facility] walk-in clinic. He states on Wednesday 11/15 he was outside when he felt like I got hit by a BB gun to the left side of his face/congregational. He states he looked down and saw a hornet and assumed he had just gotten stung. He states he went inside and placed some topical benadryl on the area and took oral benadryl as well. He states area began swelling almost immediately. Patient has pictures on his phone of what area looked like the day of the sting and how it has progressed over the next few days. Picture of area right after sting shows some faint developing ecchymosis to site. He was seen at urgent care two days later due to swelling and erythema-mild at this time based on pictures. Was placed on Bactrim but felt like he had some unwanted side effects of this so discontinued it. Was seen today at the walk in clinic and sent here due to concern for deep space infection. He does feel like the left side of his face is itchy and swollen. He is not running fevers. He is eating/drinking normally. No complaints of neck pain or difficulty swallowing. He is controlling secretions normally. No trouble speaking. He arrives to ED today in NAD with stable vital signs. MD complaint: insect bite/sting Onset (ago): day(s) Tetanus up to date: yes Location: face Severity: mild Context: other (presumed hornet sting) Associated symptoms: Deny chills, fever(s), nausea or vomiting Treatments prior to arrival: Benadryl Review of Systems Const: Denies: fever(s), chills, body aches, fatigue or malaise Eyes: Denies: change in vision, blurry vision, photophobia, floaters or seeing flashes ENMT: Reports: sinus pain (reports swelling/itching L side of face); Denies: throat pain, odynophagia, hoarseness, mouth pain, swelling of lips/tongue, oral sores, nasal discharge or nasal congestion Card: Denies: chest pain or palpitations Resp: Denies: dyspnea GI: Denies: nausea or vomiting Musc: Denies: neck pain Skin/Breast: Reports: pruritus and erythema Neuro: Denies: headache(s), numbness in extremities, weakness in extremities, sensory changes or dizziness PFSH ED PFSH: Medical History Cardiomyopathy Leukemia Osteoarthritis GERD (gastroesophageal reflux disease) COPD (chronic obstructive pulmonary disease) BPH (benign prostatic hyperplasia) Cardiomegaly Hyperlipidemia Hypertension Congestive heart failure Knee pain Steatosis, liver Lumbar spondylitis Obstructive sleep apnea Sacroiliac pain Pacemaker Surgical History Status post laparoscopic appendectomy Social History Smoking and tobacco/nicotine status: former use of tobacco/nicotine Alcohol intake: never Substance/Drug Use: never Physical Exam Const: COMMON NORMALS: no acute distress, patient oriented x3, no limitations, alert and well nourished GENERAL APPEARANCE: cooperative HENMT: COMMON NORMALS: normocephalic, atraumatic, hearing grossly normal bilaterally, external ears normal, EAC's normal, TM's normal bilaterally and Normal external nose present HEAD & SCALP: normal to inspection, normocephalic and atraumatic FACE & SINUS: sinuses nontender FACE & SINUS IMAGES: 1. nickel sized area where patient originally felt sting has overlying hemorrhagic crust-this does not appear to be skin necrosis; he has some mild surrounding edema/erythema present; no underlying abscess present NOSE: Normal external nose present EXTERNAL EAR: Yes external ears normal EXTERNAL AUDITORY CANAL: EAC's normal TYMPANIC MEMBRANE: TM's normal bilaterally MOUTH: Normal oral and palatal mucosa present, lip normal and other (floor of mouth is soft and non-elevated) THROAT: posterior oropharynx normal and tonsils normal Eye: GENERAL EYE: appearance normal, both eyes and all related structures Neck/C-Spine: COMMON NORMALS: full ROM, no lymphadenopathy and no meningeal signs GENERAL: Yes normal visual inspection, No anterior neck swelling and No submandibular swelling Resp: COMMON NORMALS: normal respiratory effort and clear to auscultation bilaterally AUSCULTATION: clear to auscultation bilaterally Cardio: COMMON NORMALS: regular rate and regular rhythm RATE: regular rate RHYTHM: regular rhythm Neuro: COMMON NORMALS: patient oriented x3 SENSORIUM/ORIENTATION: Yes alert MENINGEAL SIGNS: Yes no meningeal signs Course Vital Signs: Vital signs: Vital Signs Temperature 98.3 F 11/20/23 13:46 Pulse Rate 69 11/20/23 13:46 Respiratory Rate 16 11/20/23 13:46 Blood Pressure 121/71 11/20/23 13:46 Pulse Oximetry 96 11/20/23 13:46 Oxygen Delivery Me thod Room Air 11/20/23 13:13 MDM - Skin/Abscess/Foreign Bdy Medicial Decision Making Patient is a nice 63-year-old male here for continued redness and edema surrounding a presumed hornet sting approximately 5 days ago. He was sent here from the [facility] walk-in clinic for concerns of a deep space infection regarding his neck. Clinically I do not have any concern for this. He has no complaints of neck pain. He is eating, drinking, swallowing, breathing, articulating completely normal. I think this would be highly unlikely following a sting to his temporal region. His edema seems fairly mild on my clinical assessment. Appears to have some hemorrhagic crusting to the lesion site versus actual skin necrosis. I suspect most of this is localized reaction but we will go ahead and cover for facial cellulitis. Patient was instructed to seek medical re-evaluation early this week. Return to ED precautions given. Medical Records I reviewed the patient's medical records. No radiology studies performed this visit Discharge Plan Discharge Patient Disposition: Home Clinical Impression: Hornet sting Qualifiers: Encounter type: initial encounter Injury intent: accidental or unintentional Qualified Code(s): T63.451A - Toxic effect of venom of hornets, accidental (unintentional), initial encounter Condition: Stable Prescriptions: New prednisone 10 mg tablet 10 mg PO DAILY 6 Days Qty: 20 0RF Rx Instructions: Take 5 tabs on day 1-2, 4 tabs on day 3, 3 tabs on day 4, 2 tabs on day 5, and 1 tab on day 6 cephalexin 500 mg capsule 500 mg PO Q6H 7 Days Qty: 28 0RF No Action aspirin [Adult Aspirin Regimen] 81 mg tablet,delayed release (DR/EC) 81 mg PO DAILY svexq-3o-tcv-epa-fish oil-D3 [Fish Oil-Vit D3] 360 mg-1,200 mg -1,000 unit capsule 1 cap PO BID diphenoxylate-atropine [Lomotil] 2.5-0.025 mg tablet 1 tab PO Q6H PRN (Reason: Diarrhea) melatonin 10 mg capsule 10 mg PO BEDTIME PRN (Reason: sleep) sildenafil (pulm.hypertension) 20 mg tablet 20 mg PO TID PRN (Reason: Erectile Dysfunction) Rx Instructions: administer doses at least 4-6 hours apart hydrocodone-acetaminophen 10-325 mg tablet 1 tab PO BID PRN (Reason: pain, severe) 30 Days Qty: 60 0RF Hold Instructions: Resume on 09/08/23. methocarbamol 750 mg tablet 750 mg PO Q8H PRN (Reason: muscle spasm) Qty: 60 2RF spironolactone 50 mg tablet 50 mg PO DAILY Qty: 90 1RF acetaminophen [Tylenol] 325 mg capsule 325 mg PO QID PRN (Reason: Pain) Hold Instructions: Resume on 09/09/23. rosuvastatin 10 mg tablet 10 mg PO DAILY Qty: 90 3RF tamsulosin 0.4 mg capsule 0.4 mg PO DAILY 90 Days Qty: 90 3RF varenicline [Chantix Starting Month Box] 0.5 mg (11)- 1 mg (42) tablets,dose pack See Rx Instructions .ROUTE .COMPLEX Qty: 60 2RF Rx Instructions: Take 1/2 tab daily x 7 days, then increase to 1/2 tab BID x 7 days, then increase to one tab BID. albuterol sulfate 2.5 mg /3 mL (0.083 %) solution for nebulization 2.5 mg inhalation Q4H PRN (Reason: shortness of breath or wheezing) Qty: 90 0RF hydroxychloroquine 200 mg tablet 200 mg PO BID Qty: 180 1RF furosemide 20 mg tablet See Rx Instructions .ROUTE .COMPLEX Qty: 90 0RF Dose Instruction: TAKE 1 TABLET EVERY MORNING Rx Instructions: TAKE 1 TABLET EVERY MORNING carvedilol 12.5 mg tablet 12.5 mg PO DAILY famotidine 40 mg tablet 40 mg PO BID lisinopril 5 mg tablet 5 mg PO BID celecoxib 100 mg capsule 100 mg PO BID Colace 100 mg capsule 100 mg PO BID Qty: 14 0RF Discharge Orders: Discharge ED (Routine); Ordered 11/20/23 Ordered By: Pinky Chirs Referrals: Merritt Bergeron MD [Primary Care Provider] - Activity Restrictions/Additional Instructions: As we discussed you may continue the oral and topical Benadryl to help with the itching associated with your lesion. As we discussed I would like you to follow-up with somebody early next week for re-evaluation. Continue taking photos of the area as these are helpful in determining the progression or resolution of symptoms. You may seek medical reevaluation for worsening symptoms over the next 24 to 48 hours. Coding Level of Care Code ED Watch Repair Technician for Zenaida Gruber
[2023-11-20 13:46] VITALS: BP 121/71; PULSE 69; RESP 16; TEMP 36.8; O2SAT 96
== END 2023-11-20 13:46 | disposition home or self-care (01) ==
PROVIDERS: Emergency Provider Physician Assistant; PCP Family Medicine
DX: T63.451A Toxic effect of venom of hornets, accidental (unintentional), initial encounter (principal); Z79.82 Long term (current) use of aspirin; I42.9 Cardiomyopathy, unspecified; Z85.6 Personal history of leukemia; J44.9 Chronic obstructive pulmonary disease, unspecified; E78.5 Hyperlipidemia, unspecified; I11.0 Hypertensive heart disease with heart failure; I50.9 Heart failure, unspecified; Z95.0 Presence of cardiac pacemaker; Z87.891 Personal history of nicotine dependence
CPT/HCPCS: 99283

== ENCOUNTER → 2023-11-30 13:16 | Outpatient (BNVA) | payer MEDICARE, SELFPAY | PROVIDERS: PCP Family Medicine; Visit Provider Podiatrist Foot & Ankle Surgery | DX: B35.1 Tinea unguium (principal); I73.9 Peripheral vascular disease, unspecified | CPT/HCPCS: 11721 ==

== ENCOUNTER 2024-01-03 10:08 | Outpatient (CLI) | payer MEDICARE, SELFPAY ==
--- NOTE | 2024-01-03 | CT_ITS ---
WS: [id number] LDCT LUNG CANCER SCREENING HISTORY: lung screening TECHNIQUE: Axial imaging performed from the apices to 1 cm below the costophrenic angles. Coronal and sagittal reformats are submitted with axial MIP series. All CT scans at [facility] use at least one of these dose optimization techniques: automated exposure control; mA and/or kV adjustment per patient size (includes targeted exams where dose is matched to clinical indication); or iterativ e reconstruction. DLP: 114.70 mGy.cm DIvol: Mean CTDIvol: 2.90 (mGy) COMPARISON: 10/28/2015, 03/23/2023 Diagnostic quality: Satisfactory Lungs: Severe paraseptal and centrilobular emphysema. There are multiple pulmonary nodules which have been present since 2016 with minimal increase in size. Perifissural nodules are also identified. Sma ll amount of secretions in the RIGHT mainstem bronchus. Heart: Mild cardiomegaly. Defibrillator is present. No effusion. Other findings: No mediastinal or hilar adenopathy. Mildly prominent RIGHT paratracheal lymph node is 17 mm is unchanged. Hepatic steatosis. No adrenal mass. Mild scoliosis. Increased thoracic kyphosis. CT/CT lung screening [id number] IMPRESSION: LUNG-RADS: 2-Benign Appearance or Behavior FOLLOW UP: 12 Month: Continue annual screening with LDCT OTHER FINDINGS (S MODIFIER): None.
== END 2024-01-03 10:09 | disposition home or self-care (01) ==
LOC: RAD 10:08
PROVIDERS: PCP Family Medicine; Visit Provider Internal Medicine Critical Care Medicine
DX: Z12.2 Encounter for screening for malignant neoplasm of respiratory organs (principal); F17.211 Nicotine dependence, cigarettes, in remission; J43.2 Centrilobular emphysema; R91.8 Other nonspecific abnormal finding of lung field; Z95.810 Presence of automatic (implantable) cardiac defibrillator; K76.0 Fatty (change of) liver, not elsewhere classified; M40.204 Unspecified kyphosis, thoracic region
CPT/HCPCS: 71271

== ENCOUNTER → 2024-01-10 12:55 | Outpatient (BNVA) | payer MEDICARE, SELFPAY | PROVIDERS: PCP Family Medicine; Visit Provider Surgery | DX: K21.9 Gastro-esophageal reflux disease without esophagitis (principal); Z12.11 Encounter for screening for malignant neoplasm of colon | CPT/HCPCS: 99214 ==

== ENCOUNTER → 2024-02-01 12:58 | Outpatient (BNVA) | payer MEDICARE, SELFPAY | PROVIDERS: PCP Family Medicine; Visit Provider Podiatrist Foot & Ankle Surgery | DX: B35.1 Tinea unguium (principal); I73.9 Peripheral vascular disease, unspecified | CPT/HCPCS: 11721 ==

== ENCOUNTER → 2024-02-23 15:32 | Outpatient (BNVA) | payer MEDICARE, SELFPAY | PROVIDERS: PCP Family Medicine; Visit Provider Specialist | DX: M25.551 Pain in right hip (principal); M53.3 Sacrococcygeal disorders, not elsewhere classified | CPT/HCPCS: 73523; 99204 ==

== ENCOUNTER → 2024-03-02 10:06 | Outpatient (BNVA) | payer MEDICARE, SELFPAY | PROVIDERS: PCP Family Medicine; Visit Provider Orthopaedic Surgery | DX: M54.9 Dorsalgia, unspecified (principal) | CPT/HCPCS: 72110; 99204 ==

== ENCOUNTER 2024-03-06 12:03 | Outpatient (RCR) | payer MEDICARE, SELFPAY | END 2024-03-18 23:59 | disposition home or self-care (01) | LOC: SPT 12:03 | PROVIDERS: PCP Family Medicine; Visit Provider Specialist | DX: M25.551 Pain in right hip (principal); M25.552 Pain in left hip; M46.1 Sacroiliitis, not elsewhere classified | CPT/HCPCS: 97110; 97140; 97161 ==

== ENCOUNTER 2024-03-08 10:37 | Day surgery (SDC) | payer MEDICARE, SELFPAY ==
[2024-03-08 10:52] VITALS: BMI 37.1
[2024-03-08 10:59] VITALS: BP 148/90; PULSE 72; RESP 17; TEMP 36.7; O2SAT 95
[2024-03-08] MEDS: sodium chloride 0.9% 1,000 ML 30 ML IV (11:04)
--- NOTE | 2024-03-08 11:44 | ANES.PREANE2 ---
Pre-Anesthetic Assessment Height/Weight: Height 1.68 m Weight 104.326 kg Temp Pulse Resp BP Pulse Ox O2 Del Method 98.1 F 72 17 148/90 95 Room Air 03/08/24 10:59 03/08/24 10:59 03/08/24 10:59 03/08/24 10:59 03/08/24 10:59 03/08/24 10:59 Preop Diagnosis: GERD, SCREENING Operation Date: 03/08/24 12:00 Proposed Procedures p EGD 89353, 83567, G0121, K21.9, Z12.11(Not Applicable) - DO viet Stoll Colonoscopy(Not Applicable) - Lee Prakash DO Familial anesthetic complications: none Last intake: Intake Last Liquid Date 03/07/24 Last Liquid Time 22:00 Last Solid Date 03/06/24 Last Solid Time 19:00 Social Alcohol (1x month) and Tobacco (quit a week ago catherine had one since ) Exam alert, oriented x 3, clear to auscultation bilaterally and regular rate & rhythm Airway Submandibular: within normal limits Cervical ROM: within normal limits Mallampati: Class III Dentition: chipped Comments: Comments: front teeth broken off. Pulmonary Chronic Obstructive Pulmonary Disease and Sleep Apnea (cpap non-compliant) CV/HEM Congestive Heart Failure and Hypertension cardiomyopathy reduced EF see echo. Pacemaker in place. None reported Lasix held x 3 days dose stable this year no major changes per patient. Hepatic History of Liver Failure since resolved per patient. GI Gastroesophageal Reflux Disease Metabolic Hyperlipidemia and Morbid Obesity Neuropsych None reported Anesthetic Plan ASA status: 3 Anesthesia: MAC Medications/Allergies Home Medications Medication Instructions Recorded Confirmed Last Taken Type aspirin 81 mg tablet,delayed 81 mg PO DAILY 11/03/21 03/06/24 03/05/24 History release (Adult Aspirin Regimen) diphenoxylate-atropine 2.5 1 tab PO Q6H PRN Diarrhea 11/03/21 03/06/24 03/06/24 History mg-0.025 mg tablet (Lomotil) melatonin 10 mg capsule 10 mg PO BEDTIME PRN sleep 11/03/21 03/06/24 03/03/24 History omega-3s 360 yo-jnh-wkc-fish oil 1 cap PO BID 11/03/21 03/06/24 03/06/24 History 1,200 mg-D3 1,000 unit capsule (Fish Oil-Vit D3) acetaminophen 325 mg capsule 325 mg PO QID PRN Pain 05/26/22 03/06/24 03/05/24 History (Tylenol) sildenafil (pulm.hypertension) 20 20 mg PO TID PRN Erectile 03/08/23 03/06/24 03/06/24 History mg tablet Dysfunction rosuvastatin 10 mg tablet 10 mg PO DAILY #90 tabs 07/06/23 03/06/24 03/06/24 Rx albuterol sulfate 2.5 mg/3 mL 2.5 mg (3 mL) inhalation Q4H PRN 08/30/23 03/06/24 Unknown Rx (0.083 %) solution for nebulization shortness of breath or wheezing #90 mL carvedilol 12.5 mg tablet 12.5 mg PO DAILY 09/02/23 03/06/24 03/06/24 History celecoxib 100 mg capsule 100 mg PO BID 09/02/23 03/06/24 03/06/24 History methocarbamol 750 mg tablet 750 mg PO Q8H PRN muscle spasm #60 10/05/23 03/06/24 03/06/24 Rx tabs hydrocodone 10 mg-acetaminophen 1 tab PO BID PRN pain, severe 30 12/22/23 03/06/24 03/06/24 Rx 325 mg tablet days #60 tabs lisinopril 5 mg tablet See Rx Instructions .Route 12/29/23 03/06/24 03/06/24 Rx .COMPLEX #180 tabs tamsulosin 0.4 mg capsule 0.8 mg (2 x 0.4 mg) PO DAILY #180 01/04/24 03/06/24 03/06/24 Rx caps pantoprazole 40 mg tablet,delayed 40 mg PO BID 6 weeks #84 tabs 01/11/24 03/06/24 03/06/24 Rx release (Protonix) lidocaine 4 % topical cream 1 applic topical BID PRN pain #28 02/10/24 03/06/24 03/06/24 Rx grams hydroxychloroquine 200 mg tablet 200 mg PO BID #180 tabs 03/06/24 03/08/24 03/06/24 Rx spironolactone 50 mg tablet 50 mg PO DAILY #90 tabs 03/06/24 03/08/24 03/06/24 Rx furosemide 20 mg tablet 20 mg PO DAILY 03/08/24 03/08/24 03/06/24 History Allergies Allergy/AdvReac Type Severity Reaction Status Date / Time oxytetracycline Allergy ADR-Itching Verified 02/23/24 15:52 [From Terramycin with Polymyxin B] polymyxin B Allergy ADR-Itching Verified 02/23/24 15:52 [From Terramycin with Polymyxin B] sulfamethoxazole Allergy ADR/ALGY-Pa Verified 02/23/24 15:52 [From Bactrim] lpitations trimethoprim [From Bactrim] Allergy ADR/ALGY-Pa Verified 02/23/24 15:52 lpitations Current Medications Generic Name Dose Route Start Last Admin Trade Name Freq PRN Reason Stop Dose Admin Sodium Chloride 1,000 mls @ 30 mls/hr 03/08/24 11:00 03/08/24 11:04 Sodium Chloride 0.9% IV 03/09/24 10:59 30 mls/hr .Q24H ALBARO Administration PFSH Anesthesia Medical History Hiatal hernia CAD (coronary artery disease) HFrEF (heart failure with reduced ejection fraction) Cardiomyopathy Leukemia Osteoarthritis GERD (gastroesophageal reflux disease) COPD (chronic obstructive pulmonary disease) BPH (benign prostatic hyperplasia) Cardiomegaly Hyperlipidemia Hypertension Knee pain Steatosis, liver Lumbar spondylitis Obstructive sleep apnea Sacroiliac pain Pacemaker Surgical History Status post laparoscopic appendectomy Social History Smoking and tobacco/nicotine status: never used tobacco/nicotine Quit status (tobacco/nicotine): has quit using Year quit tobacco: 2023 Former quit date comment: 08/18/2023 Alcohol intake: never Substance/Drug Use: never Additional social history: stared smoking around age of 36 and smoked 1PPD x 20 year . He initially quit for few years and relapsed and smoked 1PP for 3 more years quitting on 08/18/2023 Data Anesthesia Cardiac Studies: Echocardiogram 06/12/22
--- NOTE | 2024-03-08 12:05 | PM.HP ---
Providers/Chief Complaint Primary Care Provider: Merritt Bergeron MD Chief Complaint: Z12.11 History of Present Illness Buddy Waterman is a 64 year old male Review of Systems General: Reports: 10 or more systems reviewed and unremarkable except in HPI and below Medications/Allergies Home Medications Medication Instructions Recorded Confirmed Last Taken Type aspirin 81 mg tablet,delayed 81 mg PO DAILY 11/03/21 03/06/24 03/05/24 History release (Adult Aspirin Regimen) diphenoxylate-atropine 2.5 1 tab PO Q6H PRN Diarrhea 11/03/21 03/06/24 03/06/24 History mg-0.025 mg tablet (Lomotil) melatonin 10 mg capsule 10 mg PO BEDTIME PRN sleep 11/03/21 03/06/24 03/03/24 History omega-3s 360 fu-ekt-wiv-fish oil 1 cap PO BID 11/03/21 03/06/24 03/06/24 History 1,200 mg-D3 1,000 unit capsule (Fish Oil-Vit D3) acetaminophen 325 mg capsule 325 mg PO QID PRN Pain 05/26/22 03/06/24 03/05/24 History (Tylenol) sildenafil (pulm.hypertension) 20 20 mg PO TID PRN Erectile 03/08/23 03/06/24 03/06/24 History mg tablet Dysfunction rosuvastatin 10 mg tablet 10 mg PO DAILY #90 tabs 07/06/23 03/06/24 03/06/24 Rx albuterol sulfate 2.5 mg/3 mL 2.5 mg (3 mL) inhalation Q4H PRN 08/30/23 03/06/24 Unknown Rx (0.083 %) solution for nebulization shortness of breath or wheezing #90 mL carvedilol 12.5 mg tablet 12.5 mg PO DAILY 09/02/23 03/06/24 03/06/24 History celecoxib 100 mg capsule 100 mg PO BID 09/02/23 03/06/24 03/06/24 History methocarbamol 750 mg tablet 750 mg PO Q8H PRN muscle spasm #60 10/05/23 03/06/24 03/06/24 Rx tabs hydrocodone 10 mg-acetaminophen 1 tab PO BID PRN pain, severe 30 12/22/23 03/06/24 03/06/24 Rx 325 mg tablet days #60 tabs lisinopril 5 mg tablet See Rx Instructions .Route 12/29/23 03/06/24 03/06/24 Rx .COMPLEX #180 tabs tamsulosin 0.4 mg capsule 0.8 mg (2 x 0.4 mg) PO DAILY #180 01/04/24 03/06/24 03/06/24 Rx caps pantoprazole 40 mg tablet,delayed 40 mg PO BID 6 weeks #84 tabs 01/11/24 03/06/24 03/06/24 Rx release (Protonix) lidocaine 4 % topical cream 1 applic topical BID PRN pain #28 02/10/24 03/06/24 03/06/24 Rx grams hydroxychloroquine 200 mg tablet 200 mg PO BID #180 tabs 03/06/24 03/08/24 03/06/24 Rx spironolactone 50 mg tablet 50 mg PO DAILY #90 tabs 03/06/24 03/08/24 03/06/24 Rx furosemide 20 mg tablet 20 mg PO DAILY 03/08/24 03/08/24 03/06/24 History Allergies Allergy/AdvReac Type Severity Reaction Status Date / Time oxytetracycline Allergy ADR-Itching Verified 02/23/24 15:52 [From Terramycin with Polymyxin B] polymyxin B Allergy ADR-Itching Verified 02/23/24 15:52 [From Terramycin with Polymyxin B] sulfamethoxazole Allergy ADR/ALGY-Pa Verified 02/23/24 15:52 [From Bactrim] lpitations trimethoprim [From Bactrim] Allergy ADR/ALGY-Pa Verified 02/23/24 15:52 lpitations PFSH Acute PFSH: Medical History Hiatal hernia CAD (coronary artery disease) HFrEF (heart failure with reduced ejection fraction) Cardiomyopathy Leukemia Osteoarthritis GERD (gastroesophageal reflux disease) COPD (chronic obstructive pulmonary disease) BPH (benign prostatic hyperplasia) Cardiomegaly Hyperlipidemia Hypertension Knee pain Steatosis, liver Lumbar spondylitis Obstructive sleep apnea Sacroiliac pain Pacemaker Surgical History Status post laparoscopic appendectomy Social History Smoking and tobacco/nicotine status: never used tobacco/nicotine Quit status (tobacco/nicotine): has quit using Year quit tobacco: 2023 Former quit date comment: 08/18/2023 Alcohol intake: never Substance/Drug Use: never Additional social history: stared smoking around age of 36 and smoked 1PPD x 20 year . He initially quit for few years and relapsed and smoked 1PP for 3 more years quitting on 08/18/2023 Vitals/I&O/Wt Last Vital Signs Temp 98.1 F 03/08/24 10:59 Pulse 72 03/08/24 10:59 Resp 17 03/08/24 10:59 BP 148/90 03/08/24 10:59 Pulse Ox 95 03/08/24 10:59 O2 Del Method Room Air 03/08/24 10:59 Weight last 48 hrs Weight 230 lb A&P Assessment and plan (1) GERD (gastroesophageal reflux disease): (2) Encounter for screening for malignant neoplasm of colon: Plan EGD and colonoscopy Attestations Medical Necessity Statement*: Home Coding Level of Care Code Acute Code for Chg Fwd Diagnoses GERD (gastroesophageal reflux disease) K21.9 Encounter for screening for malignant neoplasm of colon Z12.11
[2024-03-08 12:47] VITALS: BP 135/78; PULSE 86; RESP 28; TEMP 36.6; O2SAT 98
[2024-03-08 13:00] VITALS: BP 133/72; PULSE 78; RESP 22; O2SAT 94
[2024-03-08 13:10] VITALS: BP 125/73; PULSE 72; RESP 22; O2SAT 94
--- NOTE | 2024-03-08 13:40 | ANE.PACU2 ---
Inpatient post-anesthesia follow up: Airway intact: Yes Vital signs: Temperature 97.9 F Pulse Rate 72 Respiratory Rate 22 Blood Pressure 125/73 Pulse Oximetry 94 Oxygen Delivery Me thod Room Air Oxygen Flow Rate 8 Fraction of Inspir ed Oxygen Hydration adequate: Yes Nausea and vomiting: No Pain level: 1 Mental status: Baseline
== END 2024-03-08 13:43 | disposition home or self-care (01) ==
PROVIDERS: PCP Family Medicine; Visit Provider Surgery
PROC: 0DJ08ZZ Inspection of Upper Intestinal Tract, Via Natural or Artificial Opening Endoscopic (ICD-10-PCS; CPT 43235; principal; 2024-03-08 12:00)
PROC: 0DJD8ZZ Inspection of Lower Intestinal Tract, Via Natural or Artificial Opening Endoscopic (ICD-10-PCS; CPT 45378; 2024-03-08 12:00)
DX: Z12.11 Encounter for screening for malignant neoplasm of colon (principal); Z79.82 Long term (current) use of aspirin; K29.70 Gastritis, unspecified, without bleeding; K63.5 Polyp of colon; I25.10 Atherosclerotic heart disease of native coronary artery without angina pectoris; I50.20 Unspecified systolic (congestive) heart failure; K21.9 Gastro-esophageal reflux disease without esophagitis; J44.9 Chronic obstructive pulmonary disease, unspecified; N40.0 Benign prostatic hyperplasia without lower urinary tract symptoms; E78.5 Hyperlipidemia, unspecified; I10 Essential (primary) hypertension; G47.33 Obstructive sleep apnea (adult) (pediatric); Z95.0 Presence of cardiac pacemaker
CPT/HCPCS: 43239; 45385; 88305; J2704; J7030

== ENCOUNTER 2024-03-19 06:00 | Outpatient (RCR) | payer MEDICARE, SELFPAY | END 2024-04-18 23:59 | disposition home or self-care (01) | LOC: SPT 06:00 | PROVIDERS: PCP Family Medicine; Visit Provider Specialist | DX: M46.1 Sacroiliitis, not elsewhere classified (principal); M25.551 Pain in right hip; M25.552 Pain in left hip | CPT/HCPCS: 97110; 97140 ==

== ENCOUNTER → 2024-03-24 10:18 | Outpatient (BNVA) | payer MEDICARE, SELFPAY | PROVIDERS: PCP Family Medicine; Visit Provider Surgery | DX: Z09 Encounter for follow-up examination after completed treatment for conditions other than malignant neoplasm (principal); Q40.2 Other specified congenital malformations of stomach; K21.9 Gastro-esophageal reflux disease without esophagitis; K63.5 Polyp of colon | CPT/HCPCS: 99214 ==

== ENCOUNTER → 2024-04-04 13:05 | Outpatient (BNVA) | payer MEDICARE, SELFPAY | PROVIDERS: Visit Provider Podiatrist Foot & Ankle Surgery | DX: B35.1 Tinea unguium (principal); I73.9 Peripheral vascular disease, unspecified | CPT/HCPCS: 11721 ==

== ENCOUNTER 2024-05-03 14:50 | Outpatient (RCR) | payer MEDICARE, SELFPAY | END 2024-05-19 23:59 | disposition home or self-care (01) | LOC: SPT 14:50 | PROVIDERS: PCP Family Medicine; Visit Provider Orthopaedic Surgery | DX: M54.9 Dorsalgia, unspecified (principal); G89.29 Other chronic pain | CPT/HCPCS: 97110; 97161 ==

== ENCOUNTER 2024-05-08 10:30 | Outpatient (CLI) | payer MEDICARE, SELFPAY ==
--- NOTE | 2024-05-08 10:30 | CT_ITS ---
WS: [id number] CT LUMBAR SPINE TECHNIQUE: Noncontrast CT of the lumbar spine with coronal and sagittal reformatted images. CLINICAL INFORMATION: M54.9 - Dorsalgia, unspecified COMPARISON: None. DLP: 1133.[address] scans at [facility] use at least one of these dose optimization techniques: automated e xposure control; mA and/or kV adjustment per patient size (includes targeted exams where dose is matc hed to clinical indication); or iterative reconstruction. FINDINGS: Mild lumbar curve convex LEFT. Hypertrophic changes lumbar spine. L1-L2: Mild disc bulging with slight effacement of the ventral thecal sac. Mild facet arthropathy. Sm all LEFT foraminal protrusion with mild LEFT foraminal narrowing. L2-L3: Mild annular bulging. Mild facet arthropathy. Spinal canal is patent. Mild RIGHT foraminal [place] rowing. L3-L4: Mild disc bulge with mild central canal stenosis. Impingement RIGHT subarticular recess. Moder ate facet arthropathy. Moderate RIGHT and mild LEFT foraminal narrowing. L4-L5: Slight anterolisthesis L4 on L5. Mild disc bulging with moderate to severe central canal steno sis. Impingement subarticular recess bilaterally traversing L5 nerve roots. Moderate to advanced face t arthropathy. Moderate to severe bilateral foraminal narrowing with impingement exiting L4 nerve diana ts. L5-S1: Tiny LEFT paracentral protrusion. Impingement on the LEFT S1 nerve root. Severe LEFT foraminal narrowing. RIGHT foramen is patent. Moderate facet arthropathy. Visualized pelvic bony structures: Normal. Paravertebral soft tissues: Normal. CT/CT lumbar spine wo con* [id number] IMPRESSION: 1. Slight anterolisthesis L4 on L5. Moderate to severe central canal stenosis L4-5. Mild central canal stenosis L3-4. 2. Moderate to severe bilateral L4-5 foraminal narrowing. Severe LEFT L5-S1 fo raminal narrowing. 3. Mild RIGHT L2-3 and moderate RIGHT L3-4 foraminal narrowing. 4. Severe bilateral L4-5 facet arthropathy.
== END 2024-05-08 10:41 | disposition home or self-care (01) ==
PROVIDERS: PCP Family Medicine; Visit Provider Orthopaedic Surgery
DX: M43.16 Spondylolisthesis, lumbar region (principal); M48.061 Spinal stenosis, lumbar region without neurogenic claudication; M47.896 Other spondylosis, lumbar region; M43.8X6 Other specified deforming dorsopathies, lumbar region; M51.369 Other intervertebral disc degeneration, lumbar region without mention of lumbar back pain or lower extremity pain; M51.26 Other intervertebral disc displacement, lumbar region; M51.27 Other intervertebral disc displacement, lumbosacral region; M48.07 Spinal stenosis, lumbosacral region; M47.897 Other spondylosis, lumbosacral region
CPT/HCPCS: 72131

== ENCOUNTER → 2024-05-18 15:17 | Outpatient (BNVA) | payer MEDICARE, SELFPAY | PROVIDERS: PCP Family Medicine; Visit Provider Orthopaedic Surgery | DX: M54.9 Dorsalgia, unspecified (principal); M43.16 Spondylolisthesis, lumbar region | CPT/HCPCS: 99204 ==

== ENCOUNTER 2024-05-20 06:00 | Outpatient (RCR) | payer MEDICARE, SELFPAY | END 2024-06-16 23:59 | disposition home or self-care (01) | LOC: SPT 06:00 | PROVIDERS: PCP Family Medicine; Visit Provider Orthopaedic Surgery | DX: M54.9 Dorsalgia, unspecified (principal); G89.29 Other chronic pain | CPT/HCPCS: 97110 ==

== ENCOUNTER → 2024-05-24 11:07 | Outpatient (BNVA) | payer MEDICARE, SELFPAY | PROVIDERS: PCP Family Medicine; Visit Provider Nurse Practitioner Family | DX: M53.3 Sacrococcygeal disorders, not elsewhere classified (principal); M54.50 Low back pain, unspecified; M43.16 Spondylolisthesis, lumbar region; F17.210 Nicotine dependence, cigarettes, uncomplicated | CPT/HCPCS: 99213 ==

== ENCOUNTER → 2024-06-05 13:17 | Outpatient (BNVA) | payer MEDICARE, SELFPAY | PROVIDERS: PCP Family Medicine; Visit Provider Nurse Practitioner Family | DX: M79.18 Myalgia, other site (principal); M53.3 Sacrococcygeal disorders, not elsewhere classified; M43.16 Spondylolisthesis, lumbar region; F17.210 Nicotine dependence, cigarettes, uncomplicated | CPT/HCPCS: 20553; 99214; J1010; J3490 ==

== ENCOUNTER → 2024-06-06 11:28 | Outpatient (BNVA) | payer MEDICARE, SELFPAY | PROVIDERS: PCP Family Medicine; Visit Provider Podiatrist Foot & Ankle Surgery | DX: I73.9 Peripheral vascular disease, unspecified (principal); B35.1 Tinea unguium | CPT/HCPCS: 11721 ==

== ENCOUNTER → 2024-06-19 13:30 | Outpatient (BNVA) | payer MEDICARE, SELFPAY | PROVIDERS: PCP Family Medicine; Visit Provider Nurse Practitioner Family | DX: M79.18 Myalgia, other site (principal); M53.3 Sacrococcygeal disorders, not elsewhere classified; M54.50 Low back pain, unspecified; M43.16 Spondylolisthesis, lumbar region | CPT/HCPCS: 99213 ==

== ENCOUNTER → 2024-06-28 09:38 | Outpatient (BNVA) | payer MEDICARE, SELFPAY | PROVIDERS: PCP Family Medicine; Visit Provider Anesthesiology Pain Medicine | DX: M47.816 Spondylosis without myelopathy or radiculopathy, lumbar region (principal); M54.50 Low back pain, unspecified; M54.9 Dorsalgia, unspecified | CPT/HCPCS: 64493; 64494; 64495; J3490 ==

== ENCOUNTER → 2024-07-17 09:13 | Outpatient (BNVA) | payer MEDICARE, SELFPAY | PROVIDERS: PCP Family Medicine; Visit Provider Nurse Practitioner Family | DX: M54.50 Low back pain, unspecified (principal); M53.3 Sacrococcygeal disorders, not elsewhere classified; M79.18 Myalgia, other site; M43.16 Spondylolisthesis, lumbar region | CPT/HCPCS: 99213 ==

== ENCOUNTER → 2024-07-26 10:24 | Outpatient (BNVA) | payer MEDICARE, SELFPAY | PROVIDERS: PCP Family Medicine; Visit Provider Anesthesiology Pain Medicine | DX: M47.816 Spondylosis without myelopathy or radiculopathy, lumbar region (principal); M54.50 Low back pain, unspecified | CPT/HCPCS: 64493; 64494; 64495; J3490; J9999 ==

== ENCOUNTER → 2024-08-08 11:23 | Outpatient (BNVA) | payer MEDICARE, SELFPAY | PROVIDERS: PCP Family Medicine; Visit Provider Podiatrist Foot & Ankle Surgery | DX: I73.9 Peripheral vascular disease, unspecified (principal); B35.1 Tinea unguium | CPT/HCPCS: 11721; 99213 ==

== ENCOUNTER → 2024-08-09 09:37 | Outpatient (BNVA) | payer MEDICARE, SELFPAY | PROVIDERS: PCP Family Medicine; Visit Provider Nurse Practitioner Family | DX: M53.3 Sacrococcygeal disorders, not elsewhere classified (principal); M79.18 Myalgia, other site; M54.50 Low back pain, unspecified; M43.16 Spondylolisthesis, lumbar region | CPT/HCPCS: 99213 ==

== ENCOUNTER → 2024-08-23 13:04 | Outpatient (BNVA) | payer MEDICARE, SELFPAY | PROVIDERS: PCP Family Medicine; Visit Provider Anesthesiology Pain Medicine | DX: M47.816 Spondylosis without myelopathy or radiculopathy, lumbar region (principal); M54.50 Low back pain, unspecified; M54.9 Dorsalgia, unspecified | CPT/HCPCS: 64635; 64636; J1010; J9999 ==

== ENCOUNTER 2024-08-28 14:42 | Emergency (ER) | payer MEDICARE, SELFPAY ==
--- NOTE | 2024-08-28 14:43 | XR_ITS ---
WS: [id number] Exam: XR chest 1V portable [id number] Date/Time of Exam: 08/28/2024 3:09 PM Reason For Exam: dyspnea/cough Comparison 09/01/2023. Lungs are fully inflated and clear. Mild chronic elevation of the LEFT diaphragm. Cardiomediastinal silhouette is unremarkable. Permanent cardiac pacer over the LEFT chest. Single orthopedic screw in the RIGHT scapular neck. XR/XR chest 1V portable [id number] IMPRESSION: 1. No acute cardiopulmonary finding.
--- NOTE | 2024-08-28 14:44 | ECG_ITS ---
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 Measurements Intervals [place] Rate: 72 P: 72 ME: 153 QRS: 127 QRSD: 133 T: 77 QT: 426 QTc: 469 Interpretive Statements ELECTRONIC VENTRICULAR PACEMAKER ABNORMAL RHYTHM ECG Compared to ECG 07/06/2021 12:29:31 ST (T wave) deviation no longer present Myocardial infarct finding no longer present Electronically Signed On 08-28-2024 15:06:35 CDT by Ta Issa M.D. [email or web address]
[2024-08-28 14:58] VITALS: BP 146/70; PULSE 74; RESP 16; TEMP 36.7; O2SAT 96; BMI 35.5
--- NOTE | 2024-08-28 15:04 | ED_ITS ---
HPI - SOB/Dyspnea 2 General: Chief Complaint: Shortness of Breath/Dyspnea Stated Complaint: sob, fever Time Seen by Provider: 08/28/24 14:45 History of Present Illness: HPI Narrative: 61-year-old male presents emergency room complaining of cough and what he describes as gurgling in his chest. Cough minimally productive no hemoptysis. He is patient relates subjectively he feels warm. He is a former smoker he does have an albuterol inhaler uses occasionally does not have any long-term maintenance medications. He has a history of pulmonary hypertension as well and is on sildenafil. Coughing and shortness of breath symptoms began yesterday morning. No chest pain. Associated symptoms: Reports chest congestion; Deny abdominal pain, chest pain or fever(s) Related Data Home Medications ?Medication ?Instructions ?Recorded ?Confirmed aspirin 81 mg tablet,delayed 81 mg PO DAILY 11/03/21 0 08/28/24 release (Adult Aspirin Regimen) sildenafil (pulm.hypertension) 20 20 mg PO TID PRN Ere ctile 03/08/23 08/28/24 mg tablet Dysfunction carvedilol 12.5 mg tablet 12.5 mg PO DAILY 09/02/23 lisinopril 5 mg tablet 5 mg PO DAILY 08/28/2408/28 pantoprazole 40 mg tablet,delayed 40 mg PO DAILY 08/2808/28/24 release (Protonix) Previous Rx's ?Medication ?Instructions ?Recorded rosuvastatin 10 mg tablet 10 mg PO DAILY #90 tabs 06/17 01/10 albuterol sulfate 2.5 mg/3 mL 2.5 mg (3 mL) inhalation Q4H PRN 08/30/23 (0.083 %) solution for nebulization shortness of breat h or wheezing #90 mL tamsulosin 0.4 mg capsule 0.8 mg (2 x 0.4 mg) PO DAILY #180 01/04/24 caps hydroxychloroquine 200 mg tablet 200 mg PO BID #180 ta bs 03/06/24 spironolactone 50 mg tablet 50 mg PO DAILY #90 tabs furosemide 20 mg tablet 20 mg PO DAILY #90 tabs 12/11 hydrocodone 10 mg-acetaminophen 1 tab PO BID PRN pain, severe 30 04/15/25 325 mg tablet days #60 tabs budesonide-formoterol HFA 80 2 inh inhalation BID #10. 2 grams 08/28/24 mcg-4.5 mcg/actuation aerosol inhaler (Symbicort) cefdinir 300 mg capsule 300 mg PO BID #14 caps 08/28 ipratropium 0.5 mg-albuterol 3 mg 3 ml inhalation Q4H PRN shortness 08/28/24 (2.5 mg base)/3 mL nebulization of breath or wheezing #90 mL soln prednisone 20 mg tablet 20 mg PO TID #15 tabs tiotropium bromide 1.25 2 inh inhalation DAILY #4 gr ams 08/28/24 mcg/actuation mist for inhalation (Spiriva Respimat) Allergies Allergy/AdvReac Type Severity Reaction Status Date / Time oxytetracycline (From Allergy ADR-Itching Verified 08/23/24 13:17 Terramycin with Polymyxin B) polymyxin B (From Terramycin Allergy ADR-Itching Verified 08/23/24 13:17 with Polymyxin B) sulfamethoxazole (From Allergy ADR/ALGY-Pa Verified 08/23/24 13:17 Bactrim) lpitations trimethoprim (From Bactrim) Allergy ADR/ALGY-Pa Verified 08/23/24 13:17 lpitations Review of Systems 2 Const: Denies: fever(s) or chills Card: Denies: chest pain Resp: Reports: dyspnea, non-productive cough, wheezing and chest congestion GI: Denies: abdominal pain : Denies: dysuria, urinary frequency or urinary urgency Musc: Denies: neck pain or back pain Skin/Breast: Denies: rash PFSH ED 2 PFSH: Medical History Hiatal hernia CAD (coronary artery disease) HFrEF (heart failure with reduced ejection fraction) Cardiomyopathy Leukemia Osteoarthritis GERD (gastroesophageal reflux disease) COPD (chronic obstructive pulmonary disease) BPH (benign prostatic hyperplasia) Cardiomegaly Hyperlipidemia Hypertension Knee pain Steatosis, liver Lumbar spondylitis Obstructive sleep apnea Sacroiliac pain Pacemaker Surgical History Status post laparoscopic appendectomy Social History (Reviewed 08/28/24 @ 15:08 by MERY Harper Smoking and tobacco/nicotine status: never used tobacco/nicotine Quit status (tobacco/nicotine): has quit using Year quit tobacco: 2023 Former quit date comment: 08/18/2023 Alcohol intake: never Substance/Drug Use: never Additional social history: stared smoking around age of 36 and smoked 1PPD x 20 year . He initially quit for few years and relapsed and smoked 1PP for 3 more years quitting on 08/18/2023 Physical Exam 2 Const: GENERAL APPEARANCE: cooperative ORIENTATION/CONSCIOUSNESS: Yes awake, Yes oriented to person, Yes oriented to place and Yes oriented to time HENMT: COMMON NORMALS: normocephalic, atraumatic and hearing grossly normal bilaterally HEAD & SCALP: normocephalic and atraumatic Resp: COMMON NORMALS: normal respiratory effort, No retractions and No use of accessory muscles AUSCULTATION: rhonchi and wheezes Cardio: COMMON NORMALS: regular rate, regular rhythm and No murmurs present (Cardio) RATE: regular rate RHYTHM: regular rhythm GI: COMMON NORMALS: Soft to palpation and No hepatosplenomegaly present A USCULTATION: Yes normoactive bowel sounds PALPATION: Yes Soft to palpation, No Tenderness to palpation present (GI), No Guarding due to palpation present (GI) and Yes No hepatosplenomegaly present Extremity: COMMON NORMALS: normal to inspection, capillary refill normal, no clubbing, cyanosis or edema, no calf tenderness and no pedal edema Neuro: SENSORIUM/ORIENTATION: Yes oriented to person, Yes oriented to place and Yes oriented to time Skin: COMMON NORMALS: no rashes or lesions noted GENERAL SKIN EXAM: no rashes or lesions noted Course 2 Vital Signs: Vital signs: Vital Signs Temperature 98.0 F 08/28/24 14:58 Pulse Rate 72 08/28/24 17:00 Respiratory Rate 16 08/28/24 15:28 Blood Pressure 132/74 08/28/24 17:00 Pulse Oximetry 97 08/28/24 17:00 Oxygen Delivery Me thod Room Air 08/28/24 16:00 MDM - SOB/Dyspnea Medical Decision Making Mild COPD exacerbation improved with nebulizers steroids given here will discharge home on steroid taper start Symbicort and Spiriva also gave prescription for nebulizer with [place] to use as needed follow-up with his primary care doctor within a week. Has had a mildly productive cough we will also put him on a course of cefdinir Lab Data 08/28/24 15:03 08/28/24 15:00 Labs/Radiology: Radiology Impressions Chest X-Ray 08/28/24 14:43 IMPRESSION: 1. No acute cardiopulmonary finding. Laboratory Results WBC 9.90 10^3/uL (3.29-11.43) 08/28/24 15:03 RBC 5.45 10^6/uL (3.85-5.65) 08/28/24 15:03 Hgb 15.80 g/dL (11.27-16.99) 08/28/24 15:03 Hct 48.6 % (37-53) 08/28/24 15:03 MCV 89.2 fl (82-101) 08/28/24 15:03 MCH 29.0 pg (27-33) 08/28/24 15:03 MCHC 32.5 g/dL (30-55) 08/28/24 15:03 RDW 13.2 % (12.1-15.1) 08/28/24 15:03 Plt Count 143 10^3/cmm (157-399) L 08/28/24 15:03 MPV 8.9 fL (7.4-10.4) 08/28/24 15:03 Neut % (Auto) 71.9 % 08/28/24 15:03 Lymph % (Auto) 12.7 % 08/28/24 15:03 [place] % (Auto) 9.8 % 08/28/24 15:03 Eos % (Auto) 3.2 % 08/28/24 15:03 Baso % (Auto) 0.6 % 08/28/24 15:03 Neut # (Auto) 7.11 10^3/uL (1.8-7.7) 08/28/24 15:03 Lymph # (Auto) 1.3 10^3/uL (0.8-4.8) 08/28/24 15:03 [place] # (Auto) 1.0 10^3/uL (0.2-0.9) H 08/28/24 15:03 Eos # (Auto) 0.3 10^3/uL (0.0-0.8) 08/28/24 15:03 Baso # (Auto) 0.1 10^3/uL (0.0-0.1) 08/28/24 15:03 Nucleated RBC % (auto) 0 % 08/28/24 15:03 Nucleated RBCs # 0.0 /100WBC 08/28/24 15:03 Sodium 142 mmol/L (136-145) 08/28/24 15:00 Potassium 3.9 mmol/L (3.5-5.1) 08/28/24 15:00 Chloride 107 mmol/L (98-107) 08/28/24 15:00 Carbon Dioxide 22 mmol/L (22-29) 08/28/24 15:00 Anion Gap 16.9 (5-19) 08/28/24 15:00 BUN 12 mg/dL (8-23) 08/28/24 15:00 Creatinine 0.6 mg/dL (0.7-1.2) L 08/28/24 15:00 GFR Calculation 136.1 mL/min (90-130) H 08/28/24 15:00 Glucose 124 mg/dL (65-115) H 08/28/24 15:00 Calculated Osmolality 295 mOsm/kg (285-295) 08/28/24 15:00 Calcium 8.9 mg/dL (8.5-10.5) 08/28/24 15:00 Total Bilirubin 0.7 mg/dL (0.15-1.2) 08/28/24 15:00 AST 24 U/L (0-40) 08/28/24 15:00 ALT 34 U/L (0-41) 08/28/24 15:00 Alkaline Phosphatase 84 U/L (40-130) 08/28/24 15:00 Total Protein 7.6 g/dL (6.6-8.7) 08/28/24 15:00 Albumin 4.0 g/dL (3.5-5.2) 08/28/24 15:00 Globulin 3.6 g/dL (1.3-4.6) 08/28/24 15:00 Influenza A (PCR) Negative (Negative) 08/28/24 15:21 Influenza Type B (PCR) Negative (Negative) 08/28/24 15:21 RSV (PCR) Negative (Negative) 08/28/24 15:21 SARS-CoV-2 (PCR) Negative (Negative) 08/28/24 15:21 All radiology interpretation(s) finalized by discharge Discharge Plan Discharge Patient Disposition: Home Clinical Impression: COPD with acute exacerbation Condition: Stable Prescriptions: New ipratropium-albuterol 0.5 mg-3 mg(2.5 mg base)/3 mL solution for nebulization 3 ml inhalation Q4H PRN (Reason: shortness of breath or wheezing) Qty: 90 0RF prednisone 20 mg tablet 20 mg PO TID Qty: 15 0RF Rx Instructions: 1 p.o. 3 times daily x3 days, 1 p.o. twice daily x2 days, 1 p.o. daily x2 days Spiriva Respimat 1.25 mcg/actuation mist 2 inh inhalation DAILY Qty: 4 0RF budesonide-formoterol [Symbicort] 80-4.5 mcg/actuation HFA aerosol inhaler 2 inh inhalation BID Qty: 10.2 0RF cefdinir 300 mg capsule 300 mg PO BID Qty: 14 0RF No Action aspirin [Adult Aspirin Regimen] 81 mg tablet,delayed release (DR/EC) 81 mg PO DAILY sildenafil (pulm.hypertension) 20 mg tablet 20 mg PO TID PRN (Reason: Erectile Dysfunction) Rx Instructions: administer doses at least 4-6 hours apart tamsulosin 0.4 mg capsule 0.8 mg PO DAILY Qty: 180 1RF hydroxychloroquine 200 mg tablet 200 mg PO BID Qty: 180 1RF spironolactone 50 mg tablet 50 mg PO DAILY Qty: 90 1RF rosuvastatin 10 mg tablet 10 mg PO DAILY Qty: 90 3RF albuterol sulfate 2.5 mg /3 mL (0.083 %) solution for nebulization 2.5 mg inhalation Q4H PRN (Reason: shortness of breath or wheezing) Qty: 90 0RF furosemide 20 mg tablet 20 mg PO DAILY Qty: 90 1RF hydrocodone-acetaminophen 10-325 mg tablet 1 tab PO BID PRN (Reason: pain, severe) 30 Days Qty: 60 0RF carvedilol 12.5 mg tablet 12.5 mg PO DAILY pantoprazole [Protonix] 40 mg tablet,delayed release (DR/EC) 40 mg PO DAILY lisinopril 5 mg tablet 5 mg PO DAILY Rx Instructions: TAKE 1 TABLET TWICE DAILY Discharge Orders: Discharge ED (Routine); Ordered 08/28/24 Ordered By: Yannick Villanueva Other Ambulatory Orders: DME: Nebulizer with Neb Kit (Order) Location: None Selected Ordered By: Yannick Villanueva Referrals: Merritt Bergeron MD [Primary Care Provider, Family Practice] Discharge Diet: Usual diet Discharge Activity: Increase activity as tolerated Patient Instructions: Opioid Safety, Pain Management Activity Restrictions/Additional Instructions: Thank you for choosing [facility] for your healthcare needs today. It is very important that you follow up as instructed or that you return to the Emergency Department should you have concerns or if your condition changes or worsens in any way. You are seen in the emergency room with complaints of shortness of breath. Symptoms improved with nebulizer. Recommend steroid taper will start on doxycycline and Spiriva and Symbicort follow-up with primary care within a week. Print Language: Kazakh Coding Level of Care Code ED Manager Of Drilling for Zenaida Gruber
[2024-08-28 15:12] LABS: Basophils # 0.1 10^3/uL (0.0-0.1); Basophils % 0.6 %; Eosinophils # 0.3 10^3/uL (0.0-0.8); Eosinophils % 3.2 %; Hematocrit 48.6 % (37-53); Lymphocytes # 1.3 10^3/uL (0.8-4.8); Lymphocytes % 12.7 %; Mean Corpuscular HGB Conc 32.5 g/dL (30-55); Mean Corpuscular Volume 89.2 fl (82-101); Mean Platelet Volume 8.9 fL (7.4-10.4); Monocytes % 9.8 %; Neutrophils # 7.11 10^3/uL (1.8-7.7); Neutrophils % 71.9 %; Nucleated Red Blood Cells % 0 %; Platelet Count 143 10^3/cmm (157-399); Red Blood Count 5.45 10^6/uL (3.85-5.65); Red Cell Distribution Width 13.2 % (12.1-15.1)
[2024-08-28] MEDS: ipratropium-albuterol 3 mL Neb INHALATION (15:27)
[2024-08-28 15:28] VITALS: PULSE 77; RESP 16; O2SAT 97
[2024-08-28 15:31] VITALS: PULSE 70
[2024-08-28] MEDS: methylPREDNISolone sod succ 125 mg/2 mL INJ IVP (15:32)
[2024-08-28 15:40] LABS: Alanine Aminotransferase 34 U/L (0-41); Alkaline Phosphatase 84 U/L (40-130); Anion Gap 16.9 (5-19); Aspartate Amino Transferase 24 U/L (0-40); Blood Urea Nitrogen 12 mg/dL (8-23); Calcium 8.9 mg/dL (8.5-10.5); Carbon Dioxide 22 mmol/L (22-29); Chloride 107 mmol/L (98-107); Creatinine Clr Calc Pharmacy 139.3771; Globulin 3.6 g/dL (1.3-4.6); Glomerular Filtration Rate 136.1 mL/min (90-130); Glucose 124 mg/dL (65-115); Osmolality Calculated 295 mOsm/kg (285-295); Potassium 3.9 mmol/L (3.5-5.1); Sodium 142 mmol/L (136-145); Total Bilirubin 0.7 mg/dL (0.15-1.2); Total Protein 7.6 g/dL (6.6-8.7)
[2024-08-28 16:00] VITALS: BP 127/70; PULSE 81; O2SAT 96
[2024-08-28 16:07] LABS: Influenza A NEGATIVE (Negative); Influenza B NEGATIVE (Negative); Respiratory Syncytial Virus Ce NEGATIVE (Negative); SARS-CoV-2 PCR NEGATIVE (Negative)
[2024-08-28 17:00] VITALS: BP 132/74; PULSE 72; O2SAT 97
== END 2024-08-28 17:11 | disposition home or self-care (01) ==
PROVIDERS: Emergency Provider Family Medicine; PCP Family Medicine
DX: J44.1 Chronic obstructive pulmonary disease with (acute) exacerbation (principal); Z79.82 Long term (current) use of aspirin; Z11.52 Encounter for screening for COVID-19; Z87.891 Personal history of nicotine dependence; Z95.0 Presence of cardiac pacemaker; I25.10 Atherosclerotic heart disease of native coronary artery without angina pectoris; E78.5 Hyperlipidemia, unspecified; I11.0 Hypertensive heart disease with heart failure; I50.30 Unspecified diastolic (congestive) heart failure
CPT/HCPCS: 36415; 71045; 80053; 85025; 87040; 87637; 93005; 94640; 96374; 99285; J2919; J9999

== ENCOUNTER 2024-08-29 09:38 | Outpatient (CLI) | payer MEDICARE, SELFPAY ==
--- NOTE | 2024-08-29 09:45 | USR_ITS ---
PROCEDURE INFORMATION: Exam: US Duplex Bilateral Lower Extremity Arteries Exam date and time: 08/29/2024 10:08 AM Age: 64 years old Clinical indication: Pain; Leg, lower; Bilateral; Additional info: Pad TECHNIQUE: Imaging protocol: Real-time ultrasound scan of the arteries of the bilateral lower extremities with 2-D alfaro scale, color Doppler flow and spectral waveform analysis. Images documented and saved. COMPARISON: CT abdomen pelvis con [id number] 09/01/2023 6:22 PM FINDINGS: Right common femoral artery: No occlusion or significant stenosis. Normal waveform. Right superficial femoral artery: No occlusion or significant stenosis. Normal waveform. Right popliteal artery: No occlusion or significant stenosis. Normal waveform. Right calf/foot arteries: No occlusion or significant stenosis in the visualized arteries. Normal waveforms. Dorsalis pedis artery is patent. Left common femoral artery: No occlusion or significant stenosis. Normal waveform. Left superficial femoral artery: No occlusion or significant stenosis. Normal waveform. Left popliteal artery: No occlusion or significant stenosis. Normal waveform. Left calf/foot arteries: No occlusion or significant stenosis in the visualized arteries. Normal waveforms. Dorsalis pedis artery is patent. US/CV arterial duplex [facility] [id number] IMPRESSION: No stenosis or occlusion.
== END 2024-08-29 09:39 | disposition home or self-care (01) ==
PROVIDERS: PCP Family Medicine; Visit Provider Podiatrist Foot & Ankle Surgery
DX: I73.9 Peripheral vascular disease, unspecified (principal)
CPT/HCPCS: 93925

== ENCOUNTER → 2024-09-06 13:20 | Outpatient (BNVA) | payer MEDICARE, SELFPAY | PROVIDERS: PCP Family Medicine; Visit Provider Nurse Practitioner Family | DX: M54.50 Low back pain, unspecified (principal); M53.3 Sacrococcygeal disorders, not elsewhere classified; M79.18 Myalgia, other site; M43.16 Spondylolisthesis, lumbar region | CPT/HCPCS: 99214 ==

== ENCOUNTER → 2024-10-24 09:46 | Outpatient (BNVA) | payer MEDICARE, SELFPAY | PROVIDERS: PCP Family Medicine; Visit Provider Podiatrist Foot & Ankle Surgery | DX: I73.9 Peripheral vascular disease, unspecified (principal); B35.1 Tinea unguium | CPT/HCPCS: 11721 ==

== ENCOUNTER → 2024-12-07 11:25 | Outpatient (BNVA) | payer MEDICARE, SELFPAY | PROVIDERS: PCP Family Medicine; Visit Provider Nurse Practitioner Family | DX: M43.16 Spondylolisthesis, lumbar region (principal); M53.3 Sacrococcygeal disorders, not elsewhere classified; M54.50 Low back pain, unspecified; M79.18 Myalgia, other site | CPT/HCPCS: 99214 ==

== ENCOUNTER → 2024-12-12 10:07 | Outpatient (BNVA) | payer MEDICARE, SELFPAY | PROVIDERS: PCP Family Medicine; Visit Provider Nurse Practitioner Family | DX: M79.18 Myalgia, other site (principal); M54.50 Low back pain, unspecified; M53.3 Sacrococcygeal disorders, not elsewhere classified; M43.16 Spondylolisthesis, lumbar region | CPT/HCPCS: 20553; 99214; J1010; J3490 ==

== ENCOUNTER → 2024-12-26 10:03 | Outpatient (BNVA) | payer MEDICARE, SELFPAY | PROVIDERS: PCP Family Medicine; Visit Provider Podiatrist Foot & Ankle Surgery | DX: E11.8 Type 2 diabetes mellitus with unspecified complications (principal); B35.1 Tinea unguium; I73.9 Peripheral vascular disease, unspecified | CPT/HCPCS: 11721 ==

== ENCOUNTER → 2025-01-23 09:11 | Outpatient (BNVA) | payer MEDICARE, SELFPAY | PROVIDERS: PCP Family Medicine; Visit Provider Nurse Practitioner Family | DX: M43.16 Spondylolisthesis, lumbar region (principal); M53.3 Sacrococcygeal disorders, not elsewhere classified; M79.18 Myalgia, other site; G89.29 Other chronic pain | CPT/HCPCS: 99214 ==

== ENCOUNTER 2025-01-23 11:50 | Emergency (ER) | payer MEDICARE, SELFPAY ==
--- OUTSIDE RECORDS SUMMARY | 2025-01-23 11:55 | XMS_ITS | Encounter Summary ---
Author Organization [facility] Address [address] [place] [address] Care Team Providers Care Wind Turbine Performance Engineer Name Role Phone Ramana Koroma MD, Huy De Anda Primary Care Provider Reason for Referral * Outpatient Services (Routine) - Closed Specialty Diagnoses / Procedures Referred By Contac t Referred To Contact Cardiology Diagnoses Encounter due to AICD at end of battery life Procedures CL BATTERY CHANGE Aleja Sanchez MD Phone: tel: fax: [facility] Cardiac Degreasing Solution Mixer [address] [place] [address] Phone: tel: fax: Referral ID Status Reason Start Date Expiration Date Visits Re quested Visits Authorized [id number] Closed 11/18/2016 12/19/2017 1 1 Encounter Details Date Type Department Care Team (Late st Contact Info) Description 11/18/2016 Ancillary Orders [facility] Cardiology- [place] [address] [place] [address] Aleja Sanchez MD [address] [facility] [address] [place] [address] Encounter due to AICD at end of battery life Social History Tobacco Use Types Packs/Day Years Used Date Smoking Tobacco: Every Day Cigarettes 1 18 Alcohol Use Standard Drinks/Week Comments Not Asked 0 (1 standard drink = 0.6 oz pur e alcohol) Sex and Gender Information Value Date Recorded Sex Assigned at Not on file Legal Sex Male 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 PREPROCEDURE DIAGNOSES: 1. Idiopathic cardiomyopathy, congestive heart failure. 2. CANVAS WORKER-D which is in MINI. POSTPROCEDURE DIAGNOSES: 1. Idiopathic cardiomyopathy, congestive heart failure. 2. CANVAS WORKER-D which is in MINI. 3. Status post CANVAS WORKER-D generator change. MATERIALS USED: 1. CANVAS WORKER-D generator Medtronic Claria, serial #[id number]. 2. We reused existing RA lead, it is 5076, and RV lead, which is 6947 and LV lead 4196, implant date is August 2011. 3. We explanted old CANVAS WORKER-D generator, Medtronic Protecta, implant date was August 2011. PROCEDURES PERFORMED: 1. Conscious sedation with totally 2 mg Versed and 15 mcg fentanyl from 14:11 to 14:31, I am present throughout. 2. Old generator removal. 3. New generator placement with interrogation and programming. DESCRIPTION OF PROCEDURE: After informed consent was obtained, the patient was sent to the EP Lab in the postabsorptive state. Left anterior chest was prepped in the usual fashion with sterile technique. After conscious sedation, local anesthetics were given. Incision was made parallel to the old scar. The pocket was opened carefully without damaging the lead. The pocket was modified slightly to fit the new device. All leads were then disconnected from the device and all leads were then connected to the new device. The patient had good underlying rhythm. The device was then placed into the pocket after hemostasis was achieved and after irrigation with antibiotic solution. The pocket was closed with three layers. We used 2-0 Vicryl for the first two layers and a staple gun for skin layers. Throughout the procedure the patient was hemodynamically and oxygenation stable. No complications noticed. TOTAL BLOOD LOSS: 20 mL FINAL PARAMETERS: 1. RV lead: Sensing RV to RV ring was only 1.9, which has been chronic so we changed to RV tip to RV coil, which sensing was 5.6, we did not see any T wave oversensing and impedance 361, threshold is 1.25 x 0.4 msec. 2. RA lead: Sensing P wave is 2.1 mV, impedance 475 ohms, threshold is 0.5 x 0.4 msec. 3. LV lead: Impedance 475 ohms, threshold 1.0 x 0.4 msec. FINAL PROGRAMMING: DDD, 50-130 and antitachy has two zones. VT zone is 171, one burst only, no shock. Vfib at 200 beats per minute maximum output. FINAL SUMMARY: CANVAS WORKER-D generator change with RV reprogramming. SCL/tjb - transcribed in Epic - Procedure Note Aleja Sanchez MD - 12/10/2016 TITLE OF PROCEDURE: CANVAS WORKER-D generator change. PREPROCEDURE DIAGNOSES: 1. Idiopathic cardiomyopathy, congestive heart failure. 2. CANVAS WORKER-D which is in MINI. POSTPROCEDURE DIAGNOSES: 1. Idiopathic cardiomyopathy, congestive heart failure. 2. CANVAS WORKER-D which is in MINI. 3. Status post CANVAS WORKER-D generator change. MATERIALS USED: 1. CANVAS WORKER-D generator Medtronic Claria, serial #[id number]. 2. We reused existing RA lead, it is 5076, and RV lead, which is 6947 andLV lead 4196, implant date is August 2011. 3. We explanted old CANVAS WORKER-D generator, Medtronic Protecta, implant date wasAugust 2011. PROCEDURES PERFORMED: 1. Conscious sedation with totally 2 mg Versed and 15 mcg fentanyl from14:11 to 14:31, I am present throughout. 2. Old generator removal. 3. New generator placement with interrogation and programming. DESCRIPTION OF PROCEDURE: After informed consent was obtained, thepatient was sent to the EP Lab in the postabsorptive state. Left anteriorchest was prepped in the usual fashion with sterile technique. Afterconscious sedation, local anesthetics were given. Incision was madeparallel to the old scar. The pocket was opened carefully without damagingthe lead. The pocket was modified slightly to fit the new device. Allleads were then disconnected from the device and all leads were thenconnected to the new device. The patient had good underlying rhythm. Thedevice was then placed into the pocket after hemostasis was achieved andafter irrigation with antibiotic solution. The pocket was closed withthree layers. We used 2-0 Vicryl for the first two layers and a staple gunfor skin layers. Throughout the procedure the patient was hemodynamically and oxygenationstable. No complications noticed. TOTAL BLOOD LOSS: 20 mL FINAL PARAMETERS: 1. RV lead: Sensing RV to RV ring was only 1.9, which has been chronic sowe changed to RV tip to RV coil, which sensing was 5.6, we did not see anyT wave oversensing and impedance 361, threshold is 1.25 x 0.4 msec. 2. RA lead: Sensing P wave is 2.1 mV, impedance 475 ohms, threshold is 0.5x 0.4 msec. 3. LV lead: Impedance 475 ohms, threshold 1.0 x 0.4 msec. FINAL PROGRAMMING: DDD, 50-130 and antitachy has two zones. VT zone is171, one burst only, no shock. Vfib at 200 beats per minute maximumoutput. FINAL SUMMARY: CANVAS WORKER-D generator change with RV reprogramming. SCL/tjb - transcribed in Epic - Aleja Sanchez MD FLUOROSCOPY ORDERABLES Final Result [facility] documented in this encounter Visit Diagnoses Diagnosis Encounter due to AICD at end of battery life Fitting and adjustment of automatic implantable cardiac defibrillator Encounter due to AICD at end of battery life- Primary Fitting and adjustment of automatic implantable cardiac defibrillator documented in this encounter Care Teams Wind Turbine Performance Engineer Relationship Specialty Start Date End Date Ramana Koroma, Huy De Anda MD [address] [place] [phone] PCP - General Family Practice 08/06/11 documented as of this encounter
--- OUTSIDE RECORDS SUMMARY | 2025-01-23 11:55 | XMS_ITS | Clinical Summary ---
Author Organization [facility] Address [address] [place] [address] Phone Care Team Providers Care Speaker Wirer Name Role Phone Ramana Koroma MD, Huy De Anda Primary Care Provider Allergies Active Allergy Reactions Criticality Noted Date Comments Oxytetracycline Hives High 08/17/2011 Medications spironolactone (ALDACTONE) 25 mg Oral tablet Take 50 mg by mouth daily in the morning. Active carvedilol (COREG) 12.5 mg tablet Take 25 mg by mouth 2 times daily. Active hydroxychloroqu ine (PLAQUENIL) 200 mg Oral tablet Take 200 mg by mouth daily lead massage therapist. Active furosemide (LASIX) 20 mg Oral tablet Take 40 mg by mouth daily. Active lisinopril (PRINIVIL) 5 mg Oral tablet Take 5 mg by mouth daily. Active aspirin (KATE) 81 mg Oral Tab Take by mouth. Active rosuvastatin (CRESTOR) 5 mg tablet Take 5 mg by mouth daily at bedtime. Active traMADol (ULTRAM) 50 mg tablet Take 100 mg by mouth every 6 hours as needed. Active VITAMIN E ORAL Take by mouth. Active budesonide-form oterol (SYMBICORT) 160-4.5 mcg/actuation HFA Aerosol Inhaler Take 2 Puffs by inhalation As needed. Active omega-3 fatty acids-fish oil 300-1,000 mg Capsule Take 1 Capsule by mouth daily. Active POTASSIUM ORAL Take by mouth daily. Active famotidine (PEPCID) 40 mg tablet Take 40 mg by mouth daily. Active HYDROcodone-todd taminophen (NORCO) 10-325 mg Tablet As needed Active Active Problems Problem Noted Date Diagnosed Date Cardiomyopathy, primary 11/06/2016 Biventricular automatic impl antable cardioverter defibrillator in situ 11/06/2016 Systolic congestive heart failure 11/06/2016 Biventricular implantable ca rdioverter-defibrillator in situ - Medtronic 12/12/2011 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 CHF (congestive heart failure), NYHA class III 0 08/19/2011 Family History Medical History Relation Name Comments Other Father Other Mother Relation Name Status Comments Father Mother Social History Tobacco Use Types Packs/Day Years Used Date Smoking Tobacco: Former Cigarettes 1 18 1 - 01/30/2018 Smokeless Tobacco: Never Tobacco Cessation:Ready to Q uit: Yes Alcohol Use Standard Drinks/Week Comments No 0 (1 standard drink = 0.6 oz pur e alcohol) Sex and Gender Information Value Date Recorded Sex Assigned at Not on file Legal Sex Male 5:19 AM BOWLING ALLEY OPERATOR Gender Identity Not on file Sexual Orientation Not on file Occupation Industry Job Start Date Job End Date Not on file Not on file Not on file Not on file Last Filed Vital Signs Vital Sign Reading Time Taken Comments Blood Pressure 124/70 06/18/2020 10:53 AM BOWLING ALLEY OPERATOR Pulse 79 06/18/2020 10:53 AM BOWLING ALLEY OPERATOR Temperature 36.6 C (97.9 F) 12/09/2016 12:59 PM CDT Respiratory Rate 17 12/09/2016 3:30 PM CDT Oxygen Saturation 95% 12/09/2016 4:45 PM CDT Inhaled Oxygen Concentration - - Weight 101.6 kg (224 lb) 06/18/2020 10:53 AM BOWLING ALLEY OPERATOR Height 167.6 cm (5' 6 ) 06/18/2020 10:53 AM BOWLING ALLEY OPERATOR Body Mass Index 36.15 06/18/2020 10:53 AM BOWLING ALLEY OPERATOR Plan of Treatment Health Maintenance Due Date Last Done Comments DTAP/TDAP/TD VACCINES (1 - Tdap) 02/16/1980 ZOSTER VACCINE (1 of 2) 02/16/1980 COLORECTAL SCREENING 2006 Colorectal Cancer Screening 2006 FIT-DNA Q 3 years 2006 FIT/FOBT Q 1 year 2006 01/25/2002, 01/05/2002 Flex Sig/CT Colonography Q 5 years 2006 RSV VACCINE (60+ or ) (1 - Risk 60-74 years 1-dose series) 2021 INFLUENZA VACCINE (#1) 2024 Medical Devices Implanted Type Area Equipment Installation Professional Device Identifier Shelf Expiration Date Model / Serial / Lot [id number] Implanted:11/18 (Quantity not on file) Defibrillator / [id number] / Insurance [employer] [id number] HMO Advance Directives For more information, please contact: [phone] * Full Code (Latest Code Status on File) Date Activated Date Inactivated Comments 12/09/2016 3:09 PM 12/09/2016 7:30 PM * Full Code Date Activated Date Inactivated Comments 09/11/2011 11:18 AM 09/12/2011 1:08 PM * Full Code Date Activated Date Inactivated Comments 09/11/2011 7:41 AM 09/11/2011 11:18 AM Care Teams Speaker Wirer Relationship Specialty Start Date End Date Huy Boles Jr., MD [address] [place] [address] PCP - General Family Practice 08/06/11
--- OUTSIDE RECORDS SUMMARY | 2025-01-23 11:56 | XMS_ITS | Encounter Summary ---
Author Organization [facility] Address [address] [place] [address] Care Team Providers Care Vice President Fixed Income Name Role Phone Ramana Koroma MD, Huy De Anda Primary Care Provider Encounter Details Date Type Department Care Team (Latest Contact Info) Description 01/30/2000 Outpatient Historical [facility] Huy Boles Jr., MD [address] [place] [address] Ingrowing nail (Primary Dx) Social History Tobacco Use Types Packs/Day Years Used Date Smoking Tobacco: Never Assessed Sex and Gender Information Value Date Recorded Sex Assigned at Not on file Legal Sex Male 5:19 AM TWISTER FRAME TENDER Gender Identity Not on file Sexual Orientation Not on file documented as of this encounter Plan of Treatment Not on file documented as of this encounter Visit Diagnoses Diagnosis Ingrowing nail- Primary documented in this encounter Care Teams Vice President Fixed Income Relationship Specialty Start Date End Date Huy Boles Jr., MD [address] [place] [address] PCP - General Family Practice 08/06/11 documented as of this encounter
--- OUTSIDE RECORDS SUMMARY | 2025-01-23 11:56 | XMS_ITS | Encounter Summary ---
Author Organization [facility] Address [address] [place] [address] Care Team Providers Care Filler Leaf Cutter Long Name Role Phone Ramana Koroma MD, Huy De Anda Primary Care Provider Encounter Details Date Type Department Care Team (Latest Contact Info) Description 12/01/1999 Outpatient Historical [facility] Benja Nicholson NO ADDRESS ON FILE Unspecified asthma(493.90) (Primary Dx) Social History Tobacco Use Types Packs/Day Years Used Date Smoking Tobacco: Never Assessed Sex and Gender Information Value Date Recorded Sex Assigned at Not on file Legal Sex Male 5:19 AM FINISHING TUNNEL OPERATOR Gender Identity Not on file Sexual Orientation Not on file documented as of this encounter Plan of Treatment Not on file documented as of this encounter Visit Diagnoses Diagnosis Unspecified asthma(493.90)- Primary Unspecified asthma documented in this encounter Care Teams Filler Leaf Cutter Long Relationship Specialty Start Date End Date Huy Boles Jr., MD [address] [place] [address] PCP - General Family Practice 08/06/11 documented as of this encounter
--- OUTSIDE RECORDS SUMMARY | 2025-01-23 11:56 | XMS_ITS | Encounter Summary ---
Author Organization [facility] Address [address] [place] [address] Care Team Providers Care Sewing Machine Operator Zipper Name Role Phone Ramana Koroma MD, Huy De Anda Primary Care Provider Encounter Details Date Type Department Care Team (Latest Contact Info) Description 01/05/2002 Outpatient Historical [facility] Huy Boles Jr., MD [address] [place] [address] Routine medical exam (Primary Dx); SCREENING-CARDIOVASC NEC; SCREENING-ENDOC/NUT/ MET/IMMUN OTHER; SCREENING-LIPOID DISORDERS; ABNORM ELECTROCARDIOGRAM; SCREENING FOR COND NEC; SCREENING MAL NEOP-SITE NEC; MUSCSKEL SYMPT LIMB NEC Social History Tobacco Use Types Packs/Day Years Used Date Smoking Tobacco: Never Assessed Sex and Gender Information Value Date Recorded Sex Assigned at Not on file Legal Sex Male 5:19 AM AIRCRAFT ENGINEER Gender Identity Not on file Sexual Orientation Not on file documented as of this encounter Plan of Treatment Not on file documented as of this encounter Visit Diagnoses Diagnosis Routine medical exam- Primary Routine general medical examination at a health care facility Screening for other and unspecified cardiovascular conditions Screening for other and unspecified endocrine, nutritional, metabolic, and immunity disorders Screening for lipoid disorders Nonspecific abnormal electrocardiogram (ECG) (EKG) Screening for other and unspecified genitourinary condition Special screening for malignant neoplasms of other sites Other musculoskeletal symptoms referable to limbs(729.89) Other musculoskeletal symptoms referable to limbs documented in this encounter Care Teams Sewing Machine Operator Zipper Relationship Specialty Start Date End Date Huy Boles Jr., MD [address] [place] [address] PCP - General Family Practice 08/06/11 documented as of this encounter
--- OUTSIDE RECORDS SUMMARY | 2025-01-23 11:56 | XMS_ITS | Encounter Summary ---
Author Organization [facility] Address [address] [place] [address] Care Team Providers Care Natural Developer Name Role Phone Ramana Koroma MD, Huy De Anda Primary Care Provider Encounter Details Date Type Department Care Team (Latest Contact Info) Description 02/02/2002 Outpatient Historical [facility] Huy Boles Jr., MD [address] [place] [address] OSTEOARTHROS NOS-UNSPEC (Primary Dx); LIPOPROTEIN DEFICIENCIES; JOINT PAIN-PELVIS; LABORATORY EXAMINATION Social History Tobacco Use Types Packs/Day Years Used Date Smoking Tobacco: Never Assessed Sex and Gender Information Value Date Recorded Sex Assigned at Not on file Legal Sex Male 5:19 AM GLUE JOINTER FEEDER Gender Identity Not on file Sexual Orientation Not on file documented as of this encounter Plan of Treatment Not on file documented as of this encounter Visit Diagnoses Diagnosis Osteoarthrosis, unspecified whether generalized or localized, unspecified site- Primary Lipoprotein deficiencies Pain in joint, pelvic region and thigh Laboratory examination documented in this encounter Care Teams Natural Developer Relationship Specialty Start Date End Date Huy Boles Jr., MD [address] [place] [address] PCP - General Family Practice 08/06/11 documented as of this encounter
--- OUTSIDE RECORDS SUMMARY | 2025-01-23 11:56 | XMS_ITS | Encounter Summary ---
Author Organization [facility] Address [address] [place] [address] Care Team Providers Care Dinkey Engine Firer/Fireman Name Role Phone Ramana Koroma MD, Huy De Anda Primary Care Provider Encounter Details Date Type Department Care Team (Latest Contact Info) Description 06/12/1998 Outpatient Historical [facility] Huy Boles Jr., MD [address] [place] [address] Unspecified sinusitis (chronic) (Primary Dx) Social History Tobacco Use Types Packs/Day Years Used Date Smoking Tobacco: Never Assessed Sex and Gender Information Value Date Recorded Sex Assigned at Not on file Legal Sex Male 5:19 AM GOLD LETTERER Gender Identity Not on file Sexual Orientation Not on file documented as of this encounter Plan of Treatment Not on file documented as of this encounter Visit Diagnoses Diagnosis Unspecified sinusitis (chronic)- Primary documented in this encounter Care Teams Dinkey Engine Firer/Fireman Relationship Specialty Start Date End Date Huy Boles Jr., MD [address] [place] [address] PCP - General Family Practice 08/06/11 documented as of this encounter
--- OUTSIDE RECORDS SUMMARY | 2025-01-23 11:56 | XMS_ITS | Encounter Summary ---
Author Organization [facility] Address [address] [place] [address] Care Team Providers Care Relay Engineer Name Role Phone Ramana Koroma MD, Huy De Anda Primary Care Provider Encounter Details Date Type Department Care Team (Latest Contact Info) Description 04/14/2001 Outpatient Historical [facility] Huy Boles Jr., MD [address] [place] [address] BRONCHITIS NOS (Primary Dx); TOBACCO USE DISORDER Social History Tobacco Use Types Packs/Day Years Used Date Smoking Tobacco: Never Assessed Sex and Gender Information Value Date Recorded Sex Assigned at Not on file Legal Sex Male 5:19 AM CELL STRIPPER FINAL Gender Identity Not on file Sexual Orientation Not on file documented as of this encounter Plan of Treatment Not on file documented as of this encounter Visit Diagnoses Diagnosis Bronchitis, not specified as acute or chronic- Primary Tobacco use disorder documented in this encounter Care Teams Relay Engineer Relationship Specialty Start Date End Date Huy Boles Jr., MD [address] [place] [address] PCP - General Family Practice 08/06/11 documented as of this encounter
--- OUTSIDE RECORDS SUMMARY | 2025-01-23 11:56 | XMS_ITS | Encounter Summary ---
Author Organization [facility] Address [address] [place] [address] Care Team Providers Care Machinist Class B Name Role Phone Ramana Koroma MD, Huy De Anda Primary Care Provider Encounter Details Date Type Department Care Team (Latest Contact Info) Description 03/06/1999 Outpatient Historical [facility] Huy Boles Jr., MD [address] [place] [address] Polyarteritis nodosa (CMS/HCC) (Primary Dx) Social History Tobacco Use Types Packs/Day Years Used Date Smoking Tobacco: Never Assessed Sex and Gender Information Value Date Recorded Sex Assigned at Not on file Legal Sex Male 5:19 AM TELETRAY OPERATOR Gender Identity Not on file Sexual Orientation Not on file documented as of this encounter Plan of Treatment Not on file documented as of this encounter Visit Diagnoses Diagnosis Polyarteritis nodosa (CMS/HCC)- Primary Polyarteritis nodosa documented in this encounter Care Teams Machinist Class B Relationship Specialty Start Date End Date Huy Boles Jr., MD [address] [place] [address] PCP - General Family Practice 08/06/11 documented as of this encounter
--- OUTSIDE RECORDS SUMMARY | 2025-01-23 11:56 | XMS_ITS | Clinical Summary ---
Author Organization [facility] Address [address] [place] [address] Phone Care Team Providers Care Hand I Cutter Name Role Phone Ramana Koroma MD, Huy De Anda Primary Care Provider Allergies Active Allergy Reactions Criticality Noted Date Comments Oxytetracycline Hives High 08/17/2011 Medications famotidine (PEPCID) 40 mg tablet Take 40 mg by mouth daily. 1 Active POTASSIUM ORAL Take by mouth daily. 0 Active omega-3 fatty acids-fish oil 300-1,000 mg Capsule Take 1 Capsule by mouth daily. 0 Active HYDROcodone-aceta minophen (NORCO) 10-325 mg Tablet As needed 1 Active aspirin 81 mg tablet,delayed release Take 81 mg by mouth daily. Active rosuvastatin 10 mg tablet Take 10 mg by mouth daily. Active hydrOXYchloroQUIN E 200 mg tablet Take 200 mg by mouth daily. Active lisinopriL 5 mg tablet Take 5 mg by mouth 2 times daily. Active carvediloL 12.5 mg tablet Take 12.5 mg by mouth 2 times daily with meals. Active furosemide 20 mg tablet Take 20 mg by mouth daily. Active spironolactone 50 mg tablet Take 50 mg by mouth daily. Active albuterol (PROVENTIL,VENTOL IN) 2.5 mg /3 mL (0.083 %) Solution for Nebulization 2 Active VITAMIN E ORAL Take by mouth. 5 Active traMADoL (ULTRAM) 50 mg tablet Take 100 mg by mouth every 6 hours as needed. 5 Active budesonide-formot Mile (SYMBICORT) 160-4.5 mcg/actuation HFA Aerosol Inhaler Take 2 Puffs by inhalation As needed. 5 Active melatonin 5 mg Tablet Take by mouth nightly as needed. Active CALCIUM CARBONATE-VITAMIN D3 ORAL Take by mouth. Activ e multivitamin (DAILY-TJ) tablet Take 1 Tablet by mouth daily. Active cyanocobalamin 1,000 mcg Tablet Take 1,000 mcg by mouth daily. Active diazePAM (VALIUM) 5 mg tablet Take 5 mg by mouth every 6 hours as needed for Anxiety. Active celecoxib (CeleBREX) 100 mg capsule Take 100 mg by mouth. Active tamsulosin (FLOMAX) 0.4 mg capsule Take 0.4 mg by mouth daily. Active pantoprazole (PROTONIX) 40 mg Tablet, Delayed Release (E.C.) Take 40 mg by mouth daily. Active predniSONE (DELTASONE) 20 mg tablet TAKE 1 TABLET BY MOUTH THREE TIMES DAILY FOR THREE DAYS, THEN ONE TWICE DAILY FOR TWO DAYS, THEN ONE EVERY DAY FOR TWO DAYS 5 Active Spiriva Respimat 1.25 mcg/actuation Mist INHALE TWO PUFFS EVERY DAY 5 Active methocarbamoL (ROBAXIN) 750 mg tablet take 1 tablet by mouth every 8 hours as needed for muscle spasms 5 Active Active Problems Problem Noted Date Diagnosed Date Systolic congestive heart failure 11/06/2016 Cardiomyopathy, primary 11/06/2016 Cardiac resynchronization th erapy defibrillator (AIRFIELD SERVICES OFFICER-D) in place 12/12/2011 CHF (congestive heart failure), NYHA class III 0 08/19/2011 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 Encounters Date Type Department Care Team Description 12/07/2024 8:00 AM CDT Procedure visit [facility] [address] [place] [address] Aleja Sanchez MD Cardiomyopathy, unspecified type (CMS/HCC) (Primary Dx); Congestive heart failure, unspecified HF chronicity, unspecified heart failure type (CMS/HCC) 11/01/2024 External Device Data STL ABSTRACTION Provider, Abstract 11/01/2024 External Device Data STL ABSTRACTION Provider, Abstract 10/31/2024 External Device Data STL ABSTRACTION Provider, Abstract from Last 3 Months Family History Medical History Relation Name Comments Other Father Other Mother Relation Name Status Comments Father Mother Social History Tobacco Use Types Packs/Day Years Used Date Smoking Tobacco: Former Cigarettes Q uit: 01/30/2018 Smokeless Tobacco: Never Tobacco Cessation:Counseling Given: Not Answered Alcohol Use Standard Drinks/Week Comments No 0 (1 standard drink = 0.6 oz pur e alcohol) Sex and Gender Information Value Date Recorded Sex Assigned at Not on file Legal Sex Male 5:07 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 Gender Identity Not on file Sexual Orientation Not on file Last Filed Vital Signs Vital Sign Reading Time Taken Comments Blood Pressure 138/76 09/01/2024 10:59 AM CDT Pulse 63 09/01/2024 10:59 AM CDT Temperature 36.6 C (97.9 F) 12/09/2016 12:59 PM CDT Respiratory Rate 17 12/09/2016 3:30 PM CDT Oxygen Saturation - - Inhaled Oxygen Concentration - - Weight 103.9 kg (229 lb) 09/01/2024 10:59 AM CDT Height 167.6 cm (5' 6 ) 09/01/2024 10:59 AM CDT Body Mass Index 36.96 09/01/2024 10:59 AM CDT Plan of Treatment Upcoming Encounters Date Type Department Care Team (Late st Contact Info) Description 03/08/2025 8:00 AM FUND 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 Procedure visit [place] [facility] [id number] [place] [address] Aleja Sanchez MD [address] [place] [address] 10/02/2025 10:45 AM CDT Office Visit [facility] [address] [place] [address] Aleja Sanchez MD [address] [place] [phone] Health Maintenance Due Date Last Done Comments Pre-Diabetes and Diabetes Screening 1961 DTAP/TDAP/TD VACCINES (1 - Tdap) 02/16/1980 ZOSTER VACCINE (1 of 2) 02/16/1980 COLORECTAL SCREENING 2006 Colorectal Cancer Screening 2006 FIT-DNA Q 3 years 2006 FIT/FOBT Q 1 year 2006 Flex Sig/CT Colonography Q 5 years 2006 COVID-19 Vaccine (3 - Moderna risk series) 08/22/2020 07/25/2020, 06/27/2020 RSV VACCINE (60+ or ) (1 - Risk 60-74 years 1-dose series) 2021 INFLUENZA VACCINE (#1) 2024 Medical Devices Implanted Type Area Rn First Assistant Device Identifier Shelf Expiration Date Model / Serial / Lot [id number] Implanted:11/18 (Quantity not on file) Defibrillator / [id number] / Procedures Procedure Name Priority Date/Time Associated Diagnosis Comments ND REM INTERROG PM/LDLS PM/IDS <90 D TECH REVIEW Routine 12/07/2024 9:36 AM CDT Cardiomyopathy, unspecified type (CMS/HCC) Congestive heart failure, unspecified HF chronicity, unspecified heart failure type (CMS/HCC) ND INTERROGATION EVAL REMOTE </90 D 1/2/HOME ADMINISTRATOR LD DFB Routine 12/07/2024 9:36 AM CDT Cardiomyopathy, unspecified type (CMS/HCC) Congestive heart failure, unspecified HF chronicity, unspecified heart failure type (CMS/HCC) from Last 3 Months Results * ND INTERROGATION EVAL REMOTE </90 D 1/2/HOME ADMINISTRATOR LD DFB, ND REM INTERROG PM/LDLS PM/IDS <90 D TECHREVIEW (12/07/2024 9:36 AM CDT) 12/07/2024 9:36 AM CDT Narrative INTERFACE SYSTEM - 12/07/2024 12:58 PM CDT Remote Transmission Report Date of Procedure: December 07, 2024 Events: Since 09/01/2024 No tachyarrhythmias detected, no therapy delivered Comments: [facility]link remote transmission reveals normal tri chamber AIRFIELD SERVICES OFFICER-D function with stable available threshold and impedance trends. Presenting EGM indicates atrial tracking and ventricular pacing 80s bpm. Follow-up by remote transmission in 3 months. See attached report for details. Procedure Note Provider, Historical - 12/07/2024 Remote Transmission Report Date of Procedure: December 07, 2024 Events: Since 09/01/2024 No tachyarrhythmias detected, no therapy delivered Comments: Carelink remote transmission reveals normal tri chamber AIRFIELD SERVICES OFFICER-D functionwith stable available threshold and impedance trends. Presenting EGM indicates atrial tracking and ventricular pacing 80s bpm. Follow-up by remote transmission in 3 months. See attached report for details. us Aleja Sanchez MD CARDIAC SERVICES ORDERABLES E dited Result - Final INTERFACE SYSTEM Refer to clinic/hospital department from Last 3 Months Insurance [facility] HMO Care Teams Hand I Cutter Relationship Specialty Start Date End Date Huy Boles Jr., MD [facility] [place] [address] PCP - General Family Practice 08/06/11
--- OUTSIDE RECORDS SUMMARY | 2025-01-23 11:56 | XMS_ITS | Encounter Summary ---
Author Organization [facility] Address [address] [place] [address] Care Team Providers Care Boat Ride Operator Name Role Phone Ramana Koroma MD, Huy De Anda Primary Care Provider Encounter Details Date Type Department Care Team (Latest Contact Info) Description 01/25/2002 Outpatient Historical [facility] Huy Boles Jr., MD [address] [place] [address] ABN FIND-STOOL CONTENTS-OCC BLOOD (Primary Dx) Social History Tobacco Use Types Packs/Day Years Used Date Smoking Tobacco: Never Assessed Sex and Gender Information Value Date Recorded Sex Assigned at Not on file Legal Sex Male 5:19 AM CONTROL OFFICER 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
--- OUTSIDE RECORDS SUMMARY | 2025-01-23 11:56 | XMS_ITS | Encounter Summary ---
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
--- OUTSIDE RECORDS SUMMARY | 2025-01-23 11:56 | XMS_ITS | Encounter Summary ---
Author Organization [facility] Address [address] [place] [address] Care Team Providers Care Loom Operator Name Role Phone Ramana Koroma MD, Huy De Anda Primary Care Provider Encounter Details Date Type Department Care Team (Latest Contact Info) Description 04/17/1999 Outpatient Historical [facility] Huy Boles Jr., MD [address] [place] [address] Osteoarthrosis, unspecified whether generalized or localized, unspecified site (Primary Dx); Unspecified viral infection, in conditions classified elsewhere and of unspecified site Social History Tobacco Use Types Packs/Day Years Used Date Smoking Tobacco: Never Assessed Sex and Gender Information Value Date Recorded Sex Assigned at Not on file Legal Sex Male 5: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
--- OUTSIDE RECORDS SUMMARY | 2025-01-23 11:56 | XMS_ITS | Encounter Summary ---
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
--- OUTSIDE RECORDS SUMMARY | 2025-01-23 11:56 | XMS_ITS | Encounter Summary ---
Author Organization [facility] Address [address] [place] [address] Care Team Providers Care Cable Armorer Operator Name Role Phone Ramana Koroma MD, Huy De Anda Primary Care Provider Encounter Details Date Type Department Care Team (Latest Contact Info) Description 05/19/1999 Outpatient Historical [facility] Huy Boles Jr., MD [address] [place] [address] Unspecified retinal detachment (Primary Dx) Social History Tobacco Use Types Packs/Day Years Used Date Smoking Tobacco: Never Assessed Sex and Gender Information Value Date Recorded Sex Assigned at Not on file Legal Sex Male 5: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
--- OUTSIDE RECORDS SUMMARY | 2025-01-23 11:56 | XMS_ITS | Encounter Summary ---
Author Organization [facility] Address [address] [place] [address] Care Team Providers Care Digital Strategy Director Name Role Phone Ramana Koroma MD, Huy De Anda Primary Care Provider Encounter Details Date Type Department Care Team (Latest Contact Info) Description 01/27/1999 Outpatient Historical [facility] Huy Boles Jr., MD [address] [place] [address] Osteoarthrosis, unspecified whether generalized or localized, unspecified site (Primary Dx); Unspecified gastritis and gastroduodenitis without mention of hemorrhage Social History Tobacco Use Types Packs/Day Years Used Date Smoking Tobacco: Never Assessed Sex and Gender Information Value Date Recorded Sex Assigned at Not on file Legal Sex Male 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
--- OUTSIDE RECORDS SUMMARY | 2025-01-23 11:56 | XMS_ITS | Encounter Summary ---
Author Organization [facility] Address [address] [place] [address] Care Team Providers Care Joss House Keeper Name Role Phone Ramana Koroma MD, Huy De Anda Primary Care Provider Reason for Referral * Outpatient Services (Routine) - Closed Specialty Diagnoses / Procedures Referred By Contac t Referred To Contact Diagnoses CHF (congestive heart failure), NYHA class III Idiopathic cardiomyopathy (CMS/HCC) Procedures CL BI V ICD IMPLANT Aleja Sanchez MD [address] [place] [id number] Phone: tel: fax: Referral ID Status Reason Start Date Expiration Date Visits Re quested Visits Authorized [id number] Closed 08/20/2011 08/19/2012 1 1 Encounter Details Date Type Department Care Team (Latest Contact Info) Description 08/20/2011 Ancillary Orders [facility] Cardiology- [place] [address] [place] [address] Aleja Sanchez MD [address] [place] [phone] CHF (congestive heart failure), NYHA class III (CMS/HCC); Idiopathic cardiomyopathy (CMS/HCC) Social History Tobacco Use Types Packs/Day Years Used Date Smoking Tobacco: Every Day Cigarettes 1 18 Alcohol Use Standard Drinks/Week Comments Not Asked 0 (1 standard drink = 0.6 oz pur e alcohol) Sex and Gender Information Value Date Recorded Sex Assigned at Not on file 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 PRE-PROCEDURE DIAGNOSIS: 1. Idiopathic cardiomyopathy. 2. Complete left bundle branch block with wide QRS. 3. [place] [employer] Class 3 congestive heart failure. 4. Chronic obstructive pulmonary disease. POST-PROCEDURE DIAGNOSIS: 1. Idiopathic cardiomyopathy. 2. Complete left bundle branch block with wide QRS. 3. [place] [employer] Class 3 congestive heart failure. 4. Chronic obstructive pulmonary disease. 5. Status post CRTD implantation. MATERIALS USED: 1. RV lead is Medtronic 6947, serial #[id number]. 2. RA lead is Medtronic 5076, serial [id number]. 3. LV lead is Medtronic Ability, serial #[id number]. 4. CRTD generator is a Medtronic device, serial [id number]. PROCEDURE PERFORMED: 1. Left upper extremity venogram to exclude venous occlusion. 2. RV lead placement under fluoro guidance. 3. RA placement under fluoro guidance. 4. Coronary sinus venogram. 5. LV lead placement under fluoro guidance. 6. CRTD implantation without DFT test secondary to low potassium. DESCRIPTION OF THE PROCEDURE: After informed consent was obtained, the patient was sent to the EP lab in a post-absorptive state. Left anterior chest was prepped in the usual fashion with sterile technique. After Versed and fentanyl, local anesthetic was given. Incision was made parallel to the clavicle. The prepectoralis muscle pocket was opened with acute and dull dissection. After hemostasis was achieved, contrast agent was infusing to the left upper extremity to view the subclavian vein. The patient had patent subclavian vein. Thin walled needle was used to engage the subclavian vein in three independent sticks and J wire safe sheath was used to secure the IV access. RV lead was then guided under fluoro guidance into the RV apex area. After the active fixation the lead was interrogated and all parameters were within normal limits. RV lead was then secured to the pectoralis muscle in two independent stitches with #1 Ethibond. RA lead was then guided under fluoro guidance into the RA appendage area. After the active fixation the RA lead was secured to the pectoralis muscle in two independent stitches with #1 Ethibond. Then we turned our attention to the LV lead. Straight angled glidewire along with long sheath was not able to cannulate the coronary sinus due to the patient's very posterior oriented CS os. Anatomy is not favorable. Intro catheter was then used to cannulate the coronary sinus and we tried to advance the long sheath which were not able to because every time we advanced the long sheath would push the intro catheter out of the coronary sinus, so we had to do it with intro catheter. Once intro catheter was into the coronary sinus, contrast agent was infused into the coronary sinus. The patient had a small branch on the lateral side and a better branch in the anterolateral. Bipolar lead was then guided under fluoro guidance into the anterolateral branch to the nice lateral position. We were able to use the lead guided into it but because a long sheath was in the way so the intro catheter could not advance further so we pushed as long as we could from the lead which was in good anterolateral position. Morphology was also favorable. Intro catheter was then split and removed and long sheath was removed. LV lead was then secured to the pectoralis muscle in two independent stiches with #1 Ethibond. All three leads were then interrogated and all parameters were within normal limits. The pocket was irrigated with antibiotic solution again and the device was connected to the old leads. The device was then placed into the pocket. The pocket was closed with three layers. We used 2-0 Vicryl for the first two layers and then a staple gun for skin layers. Throughout the procedure the patient was hemodynamic and oxygenation stable. The patient totally received 3 mg of Versed and 75 mcg fentanyl. No complications noticed. Minimal bleeding. We did not do DFT test due to potassium was only 3.5. The patient was in primary prevention. Final parameters: 1. RV lead sensing R wave 8.0 millivolts, impedance at 437 ohms. Threshold 1.0 x 0.5 milliseconds. 2. RA lead sensing P wave 2.9 millivolts, impedance 456 ohms. Threshold 1.25 x 0.5 milliseconds. 3. LV lead impedance 399 ohms. Threshold 1.0 x 0.5 milliseconds. Most favorable morphology would be the LV ring to the RV coil. Final programming: DDD 50-130 beats per minute. Tachycardia 2 zones, VT zone 171-200 beats per minute, one burst, no shocks. V fib at 200 beats per minute, maximal output. Final summary: CRTD implantation, no DFT test. SCL/bh - transcribed in Epic - Procedure Note Aleja Sanchez MD - 09/11/2011 DATE: 09/11/2011 TITLE OF PROCEDURE: CRTD implantation. PRE-PROCEDURE DIAGNOSIS: 1. Idiopathic cardiomyopathy. 2. Complete left bundle branch block with wide QRS. 3. [place] [employer] Class 3 congestive heart failure. 4. Chronic obstructive pulmonary disease. POST-PROCEDURE DIAGNOSIS: 1. Idiopathic cardiomyopathy. 2. Complete left bundle branch block with wide QRS. 3. [place] [employer] Class 3 congestive heart failure. 4. Chronic obstructive pulmonary disease. 5. Status post CRTD implantation. MATERIALS USED: 1. RV lead is Medtronic 6947, serial #[id number]. 2. RA lead is Medtronic 5076, serial [id number]. 3. LV lead is Medtronic Ability, serial #[id number]. 4. CRTD generator is a Medtronic device, serial [id number]. PROCEDURE PERFORMED: 1. Left upper extremity venogram to exclude venous occlusion. 2. RV lead placement under fluoro guidance. 3. RA placement under fluoro guidance. 4. Coronary sinus venogram. 5. LV lead placement under fluoro guidance. 6. CRTD implantation without DFT test secondary to low potassium. DESCRIPTION OF THE PROCEDURE: After informed consent was obtained, thepatient was sent to the EP lab in a post-absorptive state. Left anteriorchest was prepped in the usual fashion with sterile technique. AfterVersed and fentanyl, local anesthetic was given. Incision was madeparallel to the clavicle. The prepectoralis muscle pocket was opened withacute and dull dissection. After hemostasis was achieved, contrast agentwas infusing to the left upper extremity to view the subclavian vein. Thepatient had patent subclavian vein. Thin walled needle was used to engagethe subclavian vein in three independent sticks and J wire safe sheath wasused to secure the IV access. RV lead was then guided under fluoroguidance into the RV apex area. After the active fixation the lead wasinterrogated and all parameters were within normal limits. RV lead wasthen secured to the pectoralis muscle in two independent stitches with #1Ethibond. RA lead was then guided under fluoro guidance into the RAappendage area. After the active fixation the RA lead was secured to thepectoralis muscle in two independent stitches with #1 Ethibond. Then weturned our attention to the LV lead. Straight angled glidewire along with long sheath was not able to cannulatethe coronary sinus due to the patient's very posterior oriented CS os.Anatomy is not favorable. Intro catheter was then used to cannulate thecoronary sinus and we tried to advance the long sheath which were not ableto because every time we advanced the long sheath would push the introcatheter out of the coronary sinus, so we had to do it with introcatheter. Once intro catheter was into the coronary sinus, contrast agentwas infused into the coronary sinus. The patient had a small branch on thelateral side and a better branch in the anterolateral. Bipolar lead wasthen guided under fluoro guidance into the anterolateral branch to thenice lateral position. We were able to use the lead guided into it butbecause a long sheath was in the way so the intro catheter could notadvance further so we pushed as long as we could from the lead which wasin good anterolateral position. Morphology was also favorable. Introcatheter was then split and removed and long sheath was removed. LV leadwas then secured to the pectoralis muscle in two independent stiches with#1 Ethibond. All three leads were then interrogated and all parameterswere within normal limits. The pocket was irrigated with antibioticsolution again and the device was connected to the old leads. The devicewas then placed into the pocket. The pocket was closed with three layers.We used 2-0 Vicryl for the first two layers and then a staple gun for skinlayers. Throughout the procedure the patient was hemodynamic and oxygenationstable. The patient totally received 3 mg of Versed and 75 mcg fentanyl.No complications noticed. Minimal bleeding. We did not do DFT test due topotassium was only 3.5. The patient was in primary prevention. Final parameters: 1. RV lead sensing R wave 8.0 millivolts, impedance at 437 ohms.Threshold 1.0 x 0.5 milliseconds. 2. RA lead sensing P wave 2.9 millivolts, impedance 456 ohms. Threshold1.25 x 0.5 milliseconds. 3. LV lead impedance 399 ohms. Threshold 1.0 x 0.5 milliseconds. Mostfavorable morphology would be the LV ring to the RV coil. Final programming: DDD 50-130 beats per minute. Tachycardia 2 zones, VTzone 171- 200 beats per minute, one burst, no shocks. V fib at 200 beatsper minute, maximal output. Final summary: CRTD implantation, no DFT test. SCL/bh - transcribed in Epic - Aleja Sanchez MD FLUOROSCOPY ORDERABLES Final Result [facility] documented in this encounter Visit Diagnoses Diagnosis CHF (congestive heart failure), NYHA class III Congestive heart failure, unspecified Idiopathic cardiomyopathy (CMS/HCC) Other primary cardiomyopathies CHF (congestive heart failure), NYHA class III Congestive heart failure, unspecified Idiopathic cardiomyopathy (CMS/HCC) Other primary cardiomyopathies documented in this encounter Care Teams Joss House Keeper Relationship Specialty Start Date End Date Huy Boles Jr., MD [address] [place] [id number] PCP - General Family Practice 08/06/11 documented as of this encounter
--- OUTSIDE RECORDS SUMMARY | 2025-01-23 11:56 | XMS_ITS | Encounter Summary ---
Author Organization [facility] Address [address] [place] [address] Care Team Providers Care Electrical Research Engineer Name Role Phone Ramana Koroma MD, Huy De Anda Primary Care Provider Encounter Details Date Type Department Care Team (Latest Contact Info) Description 12/06/2000 Outpatient Historical [facility] Huy Boles Jr., MD [address] [place] [address] Other and unspecified noninfectious gastroenteritis and colitis(558.9) (Primary Dx) Social History Tobacco Use Types Packs/Day Years Used Date Smoking Tobacco: Never Assessed Sex and Gender Information Value Date Recorded Sex Assigned at Not on file 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
--- OUTSIDE RECORDS SUMMARY | 2025-01-23 11:56 | XMS_ITS | Encounter Summary ---
Author Organization [facility] Address [address] [place] [address] Care Team Providers Care Kosher Dietary Service Manager Name Role Phone Ramana Koroma MD, Huy De Anda Primary Care Provider Encounter Details Date Type Department Care Team (Latest Contact Info) Description 05/15/1999 Outpatient Historical [facility] Huy Boles Jr., MD [address] [place] [address] Acute conjunctivitis, unspecified (Primary Dx); Open wound of finger(s) , without mention of complication Social History Tobacco Use Types Packs/Day Years Used Date Smoking Tobacco: Never Assessed Sex and Gender Information Value Date Recorded Sex Assigned at Not on file 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
[2025-01-23 11:57] VITALS: BP 109/64; PULSE 72; TEMP 36.6; O2SAT 96
--- NOTE | 2025-01-23 13:14 | W.ED.BACK ---
HPI - Back Pain/Injury General: Chief Complaint: Back Pain/Injury Stated Complaint: lower back pain Time Seen by Provider: 01/23/25 13:14 Source: patient Mode of arrival: ambulatory Limitations: no limitations History of Present Illness: Patient is a 64-year-old male with a longstanding history of low back and chronic SI pain here with a complaint of right sided SI pain. Patient states he sees his PCP Dr. Bergeron as well as pain management. Patient states a few months ago he underwent nerve ablation which did help with his symptoms for about 3 months but states about 2 weeks ago they returned. He was seen by pain management today and was referred to Dr. Carrizales, neurosurgery, at [facility]. Patient states he takes hydrocodone 10 mg once daily that is prescribed by Dr. Bergeron as well as Celebrex and Methocarbamol. Patient states his pain today feels identical to his chronic pain but worse now that the nerve ablation has wore off . MD elicited complaint: back pain Pertinent past history: prior back pain Onset (ago): year(s) Timing: constant Severity: moderate Similar Symptoms Previously: Yes Quality: burning and stabbing Location: right lower back Radiation: none Exacerbating factors: movement and supine positioning Relieving factors: none Associated symptoms: Reports no associated symptoms; Deny chills, difficulty walking, dysuria, fatigue, fever(s) or hematuria Work related injury: No Related Data Home Medications ?Medication ?Instructions ?Recorded ?Confirmed aspirin 81 mg tablet,delayed 81 mg PO DAILY 11/03/21 01/23/25 release (Adult Aspirin Regimen) sildenafil (pulm.hypertension) 20 20 mg PO TID PRN Erectile 03/08/23 01/23/25 mg tablet Dysfunction carvedilol 12.5 mg tablet 12.5 mg PO DAILY 09/02/23 01/23/25 lisinopril 5 mg tablet 5 mg PO DAILY 08/28/24 01/23/25 pantoprazole 40 mg tablet,delayed 40 mg PO DAILY 08/28/24 01/23/25 release (Protonix) Previous Rx's ?Medication ?Instructions ?Recorded albuterol sulfate 2.5 mg/3 mL 2.5 mg (3 mL) inhalation Q4H PRN 08/30/23 (0.083 %) solution for nebulization shortness of breath or wheezing #90 mL hydroxychloroquine 200 mg tablet 200 mg PO BID #180 tabs 03/06/24 cefdinir 300 mg capsule 300 mg PO BID #14 caps 08/28/24 ipratropium 0.5 mg-albuterol 3 mg 3 ml inhalation Q4H PRN shortness 08/28/24 (2.5 mg base)/3 mL nebulization of breath or wheezing #90 mL soln budesonide-formoterol HFA 80 2 inh inhalation BID #10.2 grams 09/27/24 mcg-4.5 mcg/actuation aerosol inhaler (Symbicort) guaifenesin 1,200 mg tablet, 1,200 mg PO BID #20 tabs 09/27/24 extended release 12 hr (Mucinex) tiotropium bromide 1.25 2 inh inhalation DAILY #4 grams 09/27/24 mcg/actuation mist for inhalation (Spiriva Respimat) spironolactone 50 mg tablet 50 mg PO DAILY #90 tabs 10/25/24 bupropion HCl 300 mg 24 hr tablet, 300 mg PO QAM #90 tabs 10/27/24 extended release (Wellbutrin XL) celecoxib 100 mg capsule (Celebrex) 100 mg PO BID #180 caps 10/27/24 rosuvastatin 10 mg tablet 10 mg PO DAILY #90 tabs 10/27/24 tamsulosin 0.4 mg capsule 0.8 mg (2 x 0.4 mg) PO DAILY #180 10/27/24 caps furosemide 20 mg tablet 20 mg PO DAILY #90 tabs 10/31/24 methocarbamol 750 mg tablet 750 mg PO Q8H PRN muscle spasm #90 12/07/24 tabs hydrocodone 10 mg-acetaminophen 1 tab PO BID PRN pain, severe 30 01/01/25 325 mg tablet days #60 tabs prednisone 10 mg tablet 10 mg PO DAILY 6 days #20 tabs 01/23/25 Allergies Allergy/AdvReac Type Severity Reaction Status Date / Time oxytetracycline (From Allergy ADR-Itching Verified 01/23/25 12:02 Terramycin with Polymyxin B) polymyxin B (From Terramycin Allergy ADR-Itching Verified 01/23/25 12:02 with Polymyxin B) sulfamethoxazole (From Allergy ADR/ALGY-Pa Verified 01/23/25 12:02 Bactrim) lpitations trimethoprim (From Bactrim) Allergy ADR/SIVA-Rishabh Verified 01/23/25 12:02 lpitations Review of Systems Const: Denies: fever(s), chills, body aches, fatigue or malaise Card: Denies: chest pain Resp: Denies: dyspnea : Denies: flank pain, dysuria or hematuria Musc: Reports: back pain; Denies: neck pain, extremity pain, extremity swelling or joint swelling Neuro: Denies: numbness in extremities, weakness in extremities, sensory changes or difficulty walking PFSH ED PFSH: Medical History Hiatal hernia CAD (coronary artery disease) HFrEF (heart failure with reduced ejection fraction) Cardiomyopathy Leukemia Osteoarthritis GERD (gastroesophageal reflux disease) COPD (chronic obstructive pulmonary disease) BPH (benign prostatic hyperplasia) Cardiomegaly Hyperlipidemia Hypertension Knee pain Steatosis, liver Lumbar spondylitis Obstructive sleep apnea Sacroiliac pain Pacemaker Surgical History Status post laparoscopic appendectomy Social History Smoking and tobacco/nicotine status: current some day tobacco/nicotine user Quit status (tobacco/nicotine): considering quitting Alcohol intake: never Substance/Drug Use: never Additional social history: stared smoking around age of 36 and smoked 1PPD x 20 year . He initially quit for few years and relapsed and smoked 1PP for 3 more years quitting on 08/18/2023 Physical Exam Const: COMMON NORMALS: no acute distress, patient oriented x3, no limitations, alert and well nourished GENERAL APPEARANCE: cooperative NUTRITIONAL APPEARANCE: obese : COMMON NORMALS: Yes no CVA tenderness BLADDER/KIDNEY EXAM: Yes no CVA tenderness Back/Pelvis: COMMON NORMALS: no CVA tenderness and no thoracic nor lumbar tenderness THORACIC SPINE/UPPER BACK: No thoracic spinal tenderness LUMBAR SPINE/LOWER BACK: No lumbar spinal tenderness PELVIS: Yes buttocks normal SACROILIAC JOINTS: Yes SI joint(s) abnormal SI joint details: tender to palpation (R) SACRUM: no tenderness COCCYX: no tenderness BACK IMAGE (MALE):  1. TTP Extremity: GENERAL: Yes normal exam except as noted Neuro: COMMON NORMALS: patient oriented x3, moves all extremities, no focal motor deficits, no sensory deficits noted and gait normal SENSORIUM/ORIENTATION: Yes alert Course Vital Signs: Vital signs: Vital Signs Temperature 97.8 F 01/23/25 11:57 Pulse Rate 72 01/23/25 11:57 Blood Pressure 109/64 01/23/25 11:57 Pulse Oximetry 96 01/23/25 11:57 Oxygen Delivery Me thod Room Air 01/23/25 11:57 MDM - Back Pain/Injury Medical Decision Making Patient already follows with pain management. He is already taking chronic opiate medication (this is written for twice a day but he states he has only been taking it once daily-can increase as directed if needed) as well as Celebrex and Methocarbamol. Will prescribe a steroid taper to see if this helps. Otherwise plan is going to be for him to follow-up with Dr. Carrizales, neurosurgery at [facility] per his pain management team. I do not feel there is anything further we can offer him from an emergency standpoint. He does not require emergent/advanced imaging today. Differential Diagnosis Likely lumbar radiculopathy and strain of lumbar region Medical Records I reviewed the patient's medical records. No radiology studies performed this visit Discharge Plan Discharge Patient Disposition: Home Clinical Impression: Chronic sacroiliac joint pain Condition: Stable Prescriptions: New prednisone 10 mg tablet 10 mg PO DAILY 6 Days Qty: 20 0RF Rx Instructions: Take 5 tabs on day 1-2, 4 tabs on day 3, 3 tabs on day 4, 2 tabs on day 5, and 1 tab on day 6 No Action aspirin [Adult Aspirin Regimen] 81 mg tablet,delayed release (DR/EC) 81 mg PO DAILY sildenafil (pulm.hypertension) 20 mg tablet 20 mg PO TID PRN (Reason: Erectile Dysfunction) Rx Instructions: administer doses at least 4-6 hours apart hydroxychloroquine 200 mg tablet 200 mg PO BID Qty: 180 1RF methocarbamol 750 mg tablet 750 mg PO Q8H PRN (Reason: muscle spasm) Qty: 90 6RF albuterol sulfate 2.5 mg /3 mL (0.083 %) solution for nebulization 2.5 mg inhalation Q4H PRN (Reason: shortness of breath or wheezing) Qty: 90 0RF budesonide-formoterol [Symbicort] 80-4.5 mcg/actuation HFA aerosol inhaler 2 inh inhalation BID Qty: 10.2 1RF Spiriva Respimat 1.25 mcg/actuation mist 2 inh inhalation DAILY Qty: 4 0RF guaifenesin [Mucinex] 1,200 mg tablet extended release 12hr 1,200 mg PO BID Qty: 20 0RF bupropion HCl [Wellbutrin XL] 300 mg tablet extended release 24 hr 300 mg PO QAM Qty: 90 1RF tamsulosin 0.4 mg capsule 0.8 mg PO DAILY Qty: 180 1RF rosuvastatin 10 mg tablet 10 mg PO DAILY Qty: 90 3RF celecoxib [Celebrex] 100 mg capsule 100 mg PO BID Qty: 180 1RF spironolactone 50 mg tablet 50 mg PO DAILY Qty: 90 1RF furosemide 20 mg tablet 20 mg PO DAILY Qty: 90 1RF hydrocodone-acetaminophen 10-325 mg tablet 1 tab PO BID PRN (Reason: pain, severe) 30 Days Qty: 60 0RF carvedilol 12.5 mg tablet 12.5 mg PO DAILY pantoprazole [Protonix] 40 mg tablet,delayed release (DR/EC) 40 mg PO DAILY lisinopril 5 mg tablet 5 mg PO DAILY Rx Instructions: TAKE 1 TABLET TWICE DAILY ipratropium-albuterol 0.5 mg-3 mg(2.5 mg base)/3 mL solution for nebulization 3 ml inhalation Q4H PRN (Reason: shortness of breath or wheezing) Qty: 90 0RF cefdinir 300 mg capsule 300 mg PO BID Qty: 14 0RF Discharge Orders: Discharge ED (Routine); Ordered 01/23/25 Ordered By: Pinky Chris Referrals: Merritt Bergeron MD [Primary Care Provider, Family Practice] Patient Instructions: Patient Portal & Puneet Instructions Activity Restrictions/Additional Instructions: As we discussed, you may continue your hydrocodone 10 mg as prescribed by your primary care provider. This is written for twice daily. You can continue your anti-inflammatory medication of Celebrex as well as your muscle relaxer of Methocarbamol. We will add steroids to your visit today. I would like you to continue plan to follow-up with Dr. Carrizales, neurosurgery through [facility]. Print Language: [place] Coding Level of Care Code ED Logistics Specialist for Zenaida Gruber
== END 2025-01-23 13:58 | disposition home or self-care (01) ==
PROVIDERS: Emergency Provider Physician Assistant; PCP Family Medicine
DX: M53.3 Sacrococcygeal disorders, not elsewhere classified (principal); Z72.0 Tobacco use; I25.10 Atherosclerotic heart disease of native coronary artery without angina pectoris; J44.9 Chronic obstructive pulmonary disease, unspecified; E78.5 Hyperlipidemia, unspecified; Z95.0 Presence of cardiac pacemaker; I11.0 Hypertensive heart disease with heart failure; I50.20 Unspecified systolic (congestive) heart failure; Z79.82 Long term (current) use of aspirin
CPT/HCPCS: 99283

== ENCOUNTER 2025-02-09 09:34 | Outpatient (CLI) | payer MEDICARE, SELFPAY ==
--- NOTE | 2025-02-09 09:30 | USCV_ITS ---
Guevara Buddy Age: 64 Gender: M : 1960 Exam Date: 02/09/2025 09:56 Ordering Phys: Merritt Bergeron MD Technologist: SONYA Exam Location: [facility] Indication: HF BP: 128 / 84 HR: 68 Rhythm: Sinus Technical Quality: Adequate MEASUREMENTS (Male / Female) Normal Values 2D ECHO LV Diastolic Diameter PLAX 6.1 cm 4.2 - 5.9 / 3.9 - 5.3 cm IVS Diastolic Thickness 0.7 cm 0.6 - 1.0 / 0.6 - 0.9 cm IVS Systolic Thickness 1.0 cm LVPW Diastolic Thickness 1.0 cm 0.6 - 1.0 / 0.6 - 0.9 cm LVPW Systolic Thickness 1.3 cm LVOT Diameter 2.1 cm LV Ejection Fraction 2D Teich 13.4 % LV Ejection Fraction MOD 4C 45.3 % LV Ejection Fraction MOD 2C 41.8 % LV Ejection Fraction 2C AL 42.4 % LA Diameter 3.3 cm RA Systolic Volume 4C AL 49.4 ml RA Systolic Volume 4C MOD 46.3 ml LA Sys Volume AL 47.8 cm cubed LA Sys Volume Index AL 20.7 cm cubed/m squared Aorta at Sinotubular Diameter 2.5 cm M-MODE LA Ao Ratio MM 1.3 AV Cusp Separation MM 1.6 cm DOPPLER AV Peak Velocity 134.0 cm/s LVOT Peak Velocity 94.0 cm/s AV Area Cont Eq vti 2.6 cm squared AV Area Cont Eq pk 2.5 cm squared MV Peak Velocity 74.0 cm/s MV Area PHT 4.3 cm squared Mitral E to A Ratio 0.8 TV Peak Velocity 148.0 cm/s TR Peak Velocity 205.0 cm/s TR Peak Gradient 16.8 mmHg TV Peak E Velocity 63.0 cm/s PV Peak Velocity 111.0 cm/s FINDINGS Left Ventricle Moderately increased left ventricular cavity size. Left ventricular ejection fraction is estimated at 45 %. Global left ventricular hypokinesis. Grade I/IV diastolic dysfunction (abnormal relaxation filling pattern), normal to mildly elevated filling pressures. Right Ventricle Normal right ventricular size and systolic function. Right Atrium Normal right atrial size. Left Atrium Normal left atrial size. IA Septum Normal appearance of the interatrial septum. Mitral Valve Normal mitral valve structure. No mitral valve stenosis or regurgitation. Aortic Valve Moderate aortic valve calcification. No aortic valve stenosis. Trace aortic valve regurgitation. Tricuspid Valve Normal tricuspid valve structure. No tricuspid valve stenosis or regurgitation. Normal pulmonary pressure. Pulmonic Valve Normal pulmonic valve structure. No pulmonic valve stenosis or regurgitation. Pericardium No pericardial effusion. Aorta Normal diameter of the aortic root and ascending thoracic aorta. IVC Normal IVC diameter. CONCLUSIONS Moderately increased left ventricular cavity size. Left ventricular ejection fraction is estimated at 45 %. Global left ventricular hypokinesis. Grade I/IV diastolic dysfunction (abnormal relaxation filling pattern), normal to mildly elevated filling pressures. No significant valvular abnormalities. There is no pericardial effusion. Right atrial pressure is around 5 mm of mercury. Andre Hutchison MD (Electronically Signed) Final Date: 18 February 2025 18:32 S
== END 2025-02-09 09:35 | disposition home or self-care (01) ==
LOC: RAD 09:36
PROVIDERS: PCP Family Medicine; Visit Provider Family Medicine
DX: I50.20 Unspecified systolic (congestive) heart failure (principal); I51.89 Other ill-defined heart diseases; R93.1 Abnormal findings on diagnostic imaging of heart and coronary circulation; I35.8 Other nonrheumatic aortic valve disorders; I51.7 Cardiomegaly
CPT/HCPCS: 93306

== ENCOUNTER → 2025-03-01 09:59 | Outpatient (BNVA) | payer MEDICARE, SELFPAY | PROVIDERS: PCP Family Medicine; Visit Provider Podiatrist Foot & Ankle Surgery | DX: I73.9 Peripheral vascular disease, unspecified (principal); B35.1 Tinea unguium | CPT/HCPCS: 11721 ==

== ENCOUNTER → 2025-03-06 13:13 | Outpatient (BNVA) | payer MEDICARE, SELFPAY | PROVIDERS: PCP Family Medicine; Visit Provider Nurse Practitioner Family | DX: M53.3 Sacrococcygeal disorders, not elsewhere classified (principal); M43.16 Spondylolisthesis, lumbar region; M79.18 Myalgia, other site; Z87.891 Personal history of nicotine dependence | CPT/HCPCS: 99214 ==

== ENCOUNTER → 2025-03-13 10:58 | Outpatient (BNVA) | payer MEDICARE, SELFPAY | PROVIDERS: PCP Family Medicine; Visit Provider Family Medicine | DX: I10 Essential (primary) hypertension (principal) | CPT/HCPCS: 85025 ==

== ENCOUNTER 2025-03-21 15:12 | Outpatient (CLI) | payer MEDICARE, SELFPAY | END 2025-03-21 15:13 | disposition home or self-care (01) | LOC: LAB 15:14 | PROVIDERS: PCP Family Medicine; Visit Provider Family Medicine | DX: I10 Essential (primary) hypertension (principal); E11.9 Type 2 diabetes mellitus without complications | CPT/HCPCS: 80053; 83036; 85025 ==

== ENCOUNTER 2025-04-03 14:00 | Outpatient (CLI) | payer MEDICARE, SELFPAY ==
--- NOTE | 2025-04-03 14:00 | CT_ITS ---
WS: [id number] LDCT LUNG CANCER SCREENING TECHNIQUE: Noncontrast CT of the chest with coronal and sagittal reformatted images. CLINICAL INFORMATION: screening COMPARISON: None. DLP: 127.11 mGy.cm DIvol: Mean CTDIvol: 3.00 (mGy) All CT scans at [facility] use at least one of these dose optimization techniques: automated exposure control; mA and/or kV adjustment per patient size (includes targeted exams where dose is matched to clinical indication); or iterative reconstruction. FINDINGS: Advanced chronic emphysematous changes. Perifissural nodules are stable. Multiple subcentimeter nodules similar to previous largest along the RIGHT fissures measuring 5 mm. No new suspicious pulmonary parenchymal abnormalities. Normal caliber thoracic aorta. Aortic calcification. Coronary calcification. Cardiomegaly. AICD. No mediastinal or hilar lymphadenopathy. Small esophageal hiatal hernia. Adrenal glands are normal. No axillary lymphadenopathy. Thoracolumbar scoliosis. Thoracic kyphosis. Hypertrophic changes thoracic spine. CT/CT lung screening [id number] IMPRESSION: LUNG-RADS: 2-Benign Appearance or Behavior FOLLOW UP: 12 Month: Continue annual screening with LDCT
== END 2025-04-03 14:01 | disposition home or self-care (01) ==
LOC: RAD 14:01
PROVIDERS: PCP Family Medicine; Visit Provider Family Medicine
DX: Z12.2 Encounter for screening for malignant neoplasm of respiratory organs (principal); J43.8 Other emphysema; I35.8 Other nonrheumatic aortic valve disorders; I51.7 Cardiomegaly; K44.9 Diaphragmatic hernia without obstruction or gangrene
CPT/HCPCS: 71271

== ENCOUNTER 2025-04-05 09:34 | Outpatient (CLI) | payer MEDICARE, SELFPAY ==
--- NOTE | 2025-04-05 09:48 | NM_ITS ---
WS: [id number] NUCLEAR MEDICINE HIDA SCAN WITH GALLBLADDER EJECTION FRACTION HISTORY: NAUSEA COMPARISON: None available. TECHNIQUE: The patient was intravenously injected with 8.3 mCi of TC99m Mebrofenin. Immediate imaging over the right upper quadrant was followed by 5 minute image and additional images for a total of 60 minutes. Normal uptake of radiotracer throughout the liver. Activity identified in the gallbladder at 20 minutes and well distended by 60 minutes. Activity in the proximal small bowel was seen by 10 minutes. Good washout of the radiotracer from the liver by 60 minutes. The patient then drank 8 ounces of Ensure Plus. Ejection fraction at 60 minutes was 94%. Normal GB ejection fraction is 35-75%. Post fatty meal symptoms: None. NM/NM hepatobiliary w phar* [id number] IMPRESSION: 1. Normal HIDA scan. 2. Normal gallbladder ejection fraction.
== END 2025-04-05 09:35 | disposition home or self-care (01) ==
LOC: RAD 09:38
PROVIDERS: PCP Family Medicine; Visit Provider Internal Medicine
DX: R14.0 Abdominal distension (gaseous) (principal)
CPT/HCPCS: 78227; A9537

== ENCOUNTER 2025-04-06 09:41 | Outpatient (CLI) | payer MEDICARE, SELFPAY ==
--- NOTE | 2025-04-06 09:47 | US_ITS ---
WS: [id number] Gallbladder and right upper quadrant ultrasound, 04/06/2025 Clinical Data: POSTPRANDIAL ABDOMINAL BLOATING Comparison: Gallbladder and right upper quadrant ultrasound, 05/10/2018 Findings: The gallbladder shows no sludge or stone. The wall measures 0.2 cm with no pericholecystic fluid. The common bile duct is 0.4 cm and there are no intrahepatic ductal abnormalities. Liver shows no cysts, masses or dilated intrahepatic ducts. The main portal vein measures 0.8 cm and shows hepatopetal flow. The liver measures 15.3 cm. The pancreas is obscured by overlying bowel gas but no cyst, pseudocyst, or evidence of pancreatitis is noted. Right kidney measures 12.9 cm and there are at least 2 small cysts. The aorta and inferior vena cava show no vascular abnormalities. US/US abdomen limited [id number] Impression: Negative gallbladder and right upper quadrant ultrasound.
== END 2025-04-06 09:42 | disposition home or self-care (01) ==
PROVIDERS: PCP Family Medicine; Visit Provider Internal Medicine
DX: R14.0 Abdominal distension (gaseous) (principal)
CPT/HCPCS: 76705; 87045; 87177; 87209; 87338; 87427; 87449

== ENCOUNTER 2025-04-13 12:48 | Outpatient (RCR) | payer MEDICARE, SELFPAY | END 2025-04-18 23:59 | disposition home or self-care (01) | LOC: SPT 12:48 | PROVIDERS: PCP Family Medicine; Visit Provider Surgery | DX: M12.88 Other specific arthropathies, not elsewhere classified, other specified site (principal); R29.898 Other symptoms and signs involving the musculoskeletal system; M48.061 Spinal stenosis, lumbar region without neurogenic claudication; M43.16 Spondylolisthesis, lumbar region; M54.16 Radiculopathy, lumbar region | CPT/HCPCS: 97110; 97161 ==

== ENCOUNTER 2025-04-18 10:30 | Outpatient (CLI) | payer MEDICARE, SELFPAY | END 2025-04-18 10:31 | disposition home or self-care (01) | PROVIDERS: PCP Family Medicine; Visit Provider Family Medicine | DX: R19.7 Diarrhea, unspecified (principal) | CPT/HCPCS: 36415; 86618; 86666; 86757 ==